=== PATIENT | female | born 2005 | race Caucasian/White ===

== ENCOUNTER 2024-10-18 23:20 | Inpatient (IN) | payer OTHER, SELFPAY ==
--- NOTE | ~2024-10-18 | US_ITS ---
EXAMINATION: US thyroid DATE: 10/19/2024 11:43 INDICATION: Graves' disease TECHNIQUE: Multiple ultrasound images of the thyroid were obtained. COMPARISON: None. FINDINGS: The right thyroid lobe measures 5.8 x 1.6 x 3.0 cm. The left thyroid lobe measures 4.8 x 1.5 x 2.2 cm. 9 mm solid hypoechoic wider than tall nodule with ill-defined margins and without echogenic foci in the right thyroid lobe. (TI- RADS 4, moderately suspicious , FNA if >=1.5 cm, annual followup is >=1 cm). There is heterogeneous decreased echogenicity with coarsened echotexture and increased vascular flow on color Doppler throughout the thyroid consistent with reported history of Graves' disease. IMPRESSION: 1. Heterogeneous hypoechoic thyroid with diffuse increased vascular flow consistent with provided history of Graves' disease. 2. 9 mm TI RADS 4 right thyroid nodule which remains below size criteria for either biopsy or follow-up. Reviewed, dictated and finalized at location A. IMPRESSION: 1. Heterogeneous hypoechoic thyroid with diffuse increased vascular flow consis tent with provided history of Graves' disease. 2. 9 mm TI RADS 4 right thyroid nodule which remains below size criteria for ei ther biopsy or follow-up.
--- NOTE | ~2024-10-18 | CT_ITS ---
EXAMINATION: CTA chest PE abdomen pel DATE: 10/19/2024 01:35 INDICATION: Shortness of breath, tachypnea and tachycardia TECHNIQUE: Computed tomographic angiography (CTA) of the chest and abdomen was performed with 100 mL Omnipaque-350 intravenous contrast. The dose-length product was 691.19 mGy-cm. Maximum intensity projection 3D-reconstructions of the aorta and other arteries were constructed by the technologist on a separate workstation. COMPARISON: CT dated 03/26/2024. FINDINGS: CHEST CTA: Study is technically limited for evaluation of peripheral pulmonary arteries due to contrast bolus timing. No large central pulmonary embolism. No evidence for aortic aneurysm or dissection. There is small no focal airspace consolidation. No endobronchial lesions. No focal airspace consolidation. No suspicious pulmonary nodules or masses. Pneumomediastinum. ABDOMEN CTA: No significant vascular abnormality. No evidence for aneurysm or dissection. Fatty infiltration of the liver. Gallbladder is present. The spleen, pancreas, adrenal glands and kidneys are unremarkable. Gallbladder is present. No abnormal pelvic masses or fluid collections. No acute osseous abnormality. IMPRESSION: 1. Small pneumomediastinum. Reviewed, dictated and finalized at location O. IMPRESSION: 1. Small pneumomediastinum.
--- NOTE | ~2024-10-18 | XR_ITS ---
EXAMINATION: XR chest 2V 10/19/2024 01:17 INDICATION: Shortness of breath PROCEDURE: 2 view chest COMPARISON: 11/06/2013 FINDINGS: The lungs are clear. The cardiomediastinal silhouette is within normal limits. There are no pleural effusions. There is no pneumothorax suspected. IMPRESSION: 1: NO ACUTE CARDIOPULMONARY DISEASE. Reviewed, dictated and finalized at location O.
[2024-10-18 23:30] VITALS: BP 145/98; PULSE 128; RESP 32; TEMP 36.6; O2SAT 100
[2024-10-18 23:32] VITALS: BP 145/98; PULSE 130; RESP 25; O2SAT 98
--- OUTSIDE RECORDS SUMMARY | 2024-10-18 23:39 | XMS_ITS | Clinical Summary ---
Author Organization [facility] Address [address] [place] [address] Care Team Providers Care Natural Resources Manager Name Role Phone Hill Dan MD Primary Care Provider [phone] Source Comments [facility],non-owned Affiliates and Associated Physician Practices is amultiple site organization consisting of ambulatory clinics and hospital sitesin [place], [place], [place] and [place]. This disclosure is being madepursuant to the Care Everywhere program and may not contain all information available regarding this patient. Last updated 17.[facility] Allergies No known active allergies Medications * Be aware that medications may not be up to date on this document. Alwaysverify current medications with the patient. methimazole (TAPAZOLE) 10 MG tabletIndications:Grave s disease 1.5 tabs by mouth am; 1 tab pm 75 Tab 2 05/17/19 16 Active beclomethasone dipropionate (QVAR) 40 MCG/ACT inhalerIndications:Mild persistent asthma without complication (HCC) Inhale 2 Puffs by mouth 2 times daily 1 Inhaler 06/06/19 16 Active cetirizine (ZYRTEC) 10 MG tabletIndications:Aller gic rhinoconjunctivitis Take 1 Tab by mouth at bedtime 30 Tab 6 06/06/19 16 Active albuterol HFA (PROVENTIL;VENTOLIN;PRO AIR) 108 (90 BASE) MCG/ACT inhalerIndications:Mild persistent asthma without complication (HCC) Inhale 2 Puffs by mouth every 6 hours as needed (per an asthma action plan and before exertion.) 1 Inhaler 06/06/19 16 Active fluticasone propionate (FLONASE) 50 MCG/ACT nasal sprayIndications:Allerg ic rhinoconjunctivitis Leonard 2 Sprays into each nostril once daily 1 Bottle 6 06/06/19 16 Active hydrocortisone (HYTONE) 2.5 % ointmentIndications:Ecz ketan, unspecified type Apply to affected area 2 times daily as needed (for red, itchy skin) 30 g 6 06/06/19 16 Active methimazole (TAPAZOLE) 10 MG tablet Take 1.5 Tabs by mouth 2 times daily 90 Tab 3 08/22/19 16 Active Active Problems Problem Noted Date Diagnosed Date Asthma 06/06/2015 Allergic rhinoconjunctivitis 06/06/2015 Overview (06/06/2015): 06/06/15: allergy SPT + to dust mites, mold, dog, cat, rodents, trees, grass, ragweed, and other weeds. 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 Bagley or Sumit at [phone] 3) check thyroid levels today and again in 3 weeks 4) return in [address] Muhammad Assessment & Plan (05/17/2015 3:13 PM CDT): Suboptimally treated; ? Missed medication doses (+/- suboptimal dose). 1. Increase methimazole (10 mg tablet) 1.5 tablets am; 1 tablet pm 2. Repeat serum total T3 & total T4 levels at local laboratory (requisition forms mailed to home address) in 2-3 weeks. 3. Referral to Pediatric Ophthalmology 4. Return appointment in three months. Assessment & Plan (01/21/2015 3:05 PM [facility]): 1) check thyroid function today 2) Per Dr. Bolivar, resume Methimazole 20mg once daily, recheck thyroid function in 4-6 weeks 3) schedule appointment with ophthalmology at [phone], dr. Bagley, dr. medeiros 4) return in [address] Andrews Assessment & Plan (01/29/2014 4:40 PM [facility]): Grave's disease; improved control. 1. Methimazole (Tapazole) 5 mg at 8 am; 2:30 pm and 9 pm. 2. Atenolol 25 mg daily 3. Obtain serum TSH, total T3 and total T4 at [facility] in two weeks and fax results to Dr. Hill Muhammad at [phone] (prescription given). 3. I will contact Lisa Reed's mother by telephone (number: [phone] or father at telephone: [phone]) with the test results after I have received them and make the necessary medication dose adjustments. 4. I reviewed my provisional impressions and recommendations with Lisa Reed and her parents and they were in agreement. 5. See website: [email or web address] for patient information handouts - Grave's disease 6. Follow up with Dr. Lopez (Ophthalmology at [facility]) as previously recommended. 7. Return appointment in 3 months. Assessment & Plan (11/27/2013 12:56 PM CDT): Grave's disease; poorly-treated. 1. Methimazole (Tapazole) 5 mg at 8 am; 2:30 pm and 9 pm. 2. Atenolol 25 mg daily 3. Obtain serum TSH, total T3 and total T4 at [facility] in two weeks and fax results to Dr. Hill Muhammad at [phone] (prescription given). 3. I will contact Lisa Reed's mother by telephone (number: [phone] or father at telephone: [phone]) with the test results after I have received them and make the necessary medication dose adjustments. 4. I reviewed my provisional impressions and recommendations with Lisa Reed and her father and he was in agreement. 5. See website: [email or web address] for patient information handouts - Grave's disease 6. Return appointment in 2 months. Assessment & Plan (06/20/2013 9:03 AM CDT): Poorly controlled secondary to suboptimal medication dose 1. Increase methimazole to 5 mg three times daily daily. 2. Atenelol 25 mg daily. 3. Obtain serum TSH, total T3 & total T4 in two weeks following today's office appointment. 4. I will contact Lisa Reed's father by telephone (number: [phone]) with the test results after I have received them and make the necessary medication dose adjustments. 5. Keep outpatient office appointment with Opthalmology at the [facility] next month. 6. I reviewed my provisional impressions and recommendations with mother and father and they were in agreement. Assessment & Plan (03/21/2013 11:48 AM [facility]): Lisa's serum total T3 and T4 are increased since her last blood specimen collection in November. I recommended returning her medication dosing to twice daily and repeating her serum thyroid hormone levels in four weeks to assess her response to therapy. 1. Atenolol 25 mg every morning. 2. Methimazole 5 mg twice daily. 3. Obtain serum total T3 & T4 in four weeks (prescription mailed). 4. Measure Lisa's pulse daily and fax results to our offices in two weeks (fax: [phone]) 5. Return appointment in three months. Assessment & Plan (12/21/2012 1:13 PM CDT): Lisa's T4 and T3 levels have improved significantly since starting methimazole, but her TSH level remains suppressed. I did not change her methimazole dose and asked her parents to have TFTs repeated in 6 weeks to assess her response to therapy. Management Plan: 1. Continue Atenolol 25 mg every morning. 2. Check resting pulse every other day and notify Dr. Andrews if it slows to <60/minute. 3. Continue methimazole 5 mg twice daily. 4. Repeat T4, T3, and TSH levels in 6 weeks. 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 Family History Medical History Relation Name Comments Allergies Maternal Grandmother Eczema Maternal Grandmother Diabetes Other Father's patern al grandmother Thyroid Disease Neg Hx Relation Name Status Comments Maternal Grandmother Other Social History Tobacco Use Types Packs/Day Years Used Date Smoking Tobacco: Passive Smo ke Exposure - Never Smoker Alcohol Use Standard Drinks/Week Comments No 0 (1 standard drink = 0.6 oz pur e alcohol) Comments No Sex and Gender Information Value Date Recorded Sex Assigned at Not on file Legal Sex Female 6:31 PM [facility] Gender Identity Not on file Sexual Orientation Not on file Last Filed Vital Signs Vital Sign Reading Time Taken Comments Blood Pressure 90/62 08/21/2015 1:40 PM CDT Pulse 93 08/21/2015 1:40 PM CDT Temperature 36.8 C (98.2 F) 11/06/2013 11:19 PM CDT Respiratory Rate 24 08/21/2015 1:40 PM CDT Oxygen Saturation 100% 11/06/2013 11:19 PM CDT Inhaled Oxygen Concentration - - Weight 48.6 kg (107 lb 2.3 oz) 08/21/2015 1:40 P M CDT Height 147.3 cm (4' 9.99) 08/21/2015 1:40 PM CD T Body Mass Index 22.4 08/21/2015 1:40 PM CDT Plan of Treatment Health Maintenance Due Date Last Done Comments HIV SCREENING 09/10/2019 HPV VACCINE (1 - 3-dose series) 09/10/2019 CHLAMYDIA/GONORRHEA SCREENING 2020 MENINGOCOCCAL (Group B) VACCINE SHARED DECISION-MAKING (1 of 2 - Standard) 2020 HEPATITIS C SCREENING 09/05/2022 DTAP/TDAP/TD VACCINES (1 - Tdap) 09/10/2023 HEPATITIS B VACCINE (1 of 3 - 19+ 3-dose series) 09/10/2023 COVID-19 VACCINE (1 - 2023-2 5 season) 2023 DEPRESSION SCREENING 02/23/2024 INFLUENZA VACCINE (#1) 2024 3 (Declined) ZOSTER VACCINE (1 of 2) 2054 HIB VACCINE Aged Out No longer eligi ble based on patient's age to complete this topic MENINGOCOCCAL GROUPS A/C/Y/W VACCINE Aged Out No longer eligible b ased on patient's age to complete this topic PNEUMOCOCCAL VACCINE Aged Out No long er eligible based on patient's age to [place] [address] [facility] [facility] [id number] [place] [address] CARE Care Teams Natural Resources Manager Relationship Specialty Start Date End Date Hill Dan MD [address] [place] [phone] PCP - General Pediatrics 06/19/13
--- OUTSIDE RECORDS SUMMARY | 2024-10-18 23:39 | XMS_ITS ---
Author Organization Unknown ENCOUNTERS Encounter Performer Location Date Diagnosis Diagnosis Status Pre Admit Teri [facility] [id number] [place] [address] [id number] Emergency [id number] [place] [address] [id number] [place] [address] [id number] *Note: Encounters from your own facility or health system may be excluded. Allergies, Adverse Reactions, Alerts Allergen Type Severity Identification Date Medications Name Date Quantity Days Supplied [facility] Number
[2024-10-18 23:42] LABS: Hematocrit 46.9 % (37.0-47.0); Hemoglobin 16.9 g/dL (12.0-15.0); Immature Granulocyte Percent A 0.5 % (0-0.5); Lymphocytes Absolute Auto 1.90 K/mm3 (0.9-3.2); Mean Corpuscular HGB Conc 36.0 g/dl (32-36); Mean Corpuscular Hemoglobin 29.7 pg (26-34); Mean Corpuscular Volume 82.4 fl (80-100); Nucleated Red Blood Cells Absolute Auto 0.000 K/mm3 (0.0-0.012); Nucleated Red Blood Cells Perc 0.0 % (0.0-0.2); Platelet Count Result 396 k/mm3 (150-375); Red Blood Count 5.69 M/mm3 (4.2-5.4); White Blood Count 10.1 K/mm3 (4.5-10.0)
[2024-10-19] VITALS (18 sets, daily range): BP systolic 112–160; BP diastolic 67–100; PULSE 84–125; RESP 16–27; TEMP 36.6–37.3; O2SAT 100; BMI 27.5
[2024-10-19 00:12] LABS: Alanine Aminotransferase 19 U/L (6-35); Albumin Level 4.9 g/dL (3.5-5.1); Alkaline Phosphatase 129 U/L (38-126); Aspartate Amino Transferase 22 U/L (14-36); Bilirubin,Total 0.8 mg/dL (0.2-1.3); Blood Urea Nitrogen 5 mg/dL (7-17); Calcium 9.4 mg/dL (8.4-10.2); Carbon Dioxide < 5 mmol/L (22-30); Chloride 109 mmol/L (98-107); Estimated CRCL calculation 132 ml/min; Estimated Glomerular Filt Rate > 60; Glucose 308 mg/dL (65-110); Lipase 69 U/L (23-300); Potassium 3.9 mmol/L (3.4-5.0); Sodium 138 mmol/L (137-145); Total Protein 8.8 g/dL (6.3-8.2)
[2024-10-19 00:20] LABS: Add Urine Microscopic? YES; Appearance Urine Clear (Clear); Glucose Urine UA 3+ mg/dL (Negative); Leukocyte Esterase Ur Negative LEU/UL (Negative); Need Manual Microscopic Reviewed; Nitrate Urine Negative (Negative); Specific Grav Ur 1.031 (1.001-1.035)
--- NOTE | 2024-10-19 00:48 | ECG_ITS ---
Test Date: 2024-10-19 00:59:23 Measurements Intervals [place] Rate: 119 P: 61 GA: 213 QRS: 78 QRSD: 106 T: -11 QT: 424 QTc: 598 Interpretive Statements SINUS TACHYCARDIA WITH FIRST DEGREE AV BLOCK RIGHT ATRIAL ENLARGEMENT LEFT ATRIAL ENLARGEMENT CONSIDER ANTERIOR INFARCT, AGE INDETERMINATE ST-T WAVE ABNORMALITY IN INFERIOR LEADS- CONSIDER ISCHEMIA BASELINE ARTIFACT- I, II, III, AVR, AVL ,AVF, V1-V6 ABNORMAL ECG No previous ECG available for comparison Electronically Signed On 10-19-2024 06:11:33 CDT by Serg Miranda D.O.
[2024-10-19 00:51] LABS: BEDSIDEPREGUCG Negative (Negative)
[2024-10-19 01:19] LABS: Hematocrit 47.2 % (37.0-47.0); Hemoglobin 16.9 g/dL (12.0-15.0); Immature Granulocyte Percent A 0.5 % (0-0.5); Lymphocytes Absolute Auto 1.08 K/mm3 (0.9-3.2); Mean Corpuscular HGB Conc 35.8 g/dl (32-36); Mean Corpuscular Hemoglobin 29.6 pg (26-34); Mean Corpuscular Volume 82.7 fl (80-100); Nucleated Red Blood Cells Absolute Auto 0.000 K/mm3 (0.0-0.012); Nucleated Red Blood Cells Perc 0.0 % (0.0-0.2); Platelet Count Result 367 k/mm3 (150-375); Red Blood Count 5.71 M/mm3 (4.2-5.4); White Blood Count 9.2 K/mm3 (4.5-10.0)
[2024-10-19 01:28] LABS: INR 1.4; Prothrombin Time 16.5 Seconds (11.1-14.7)
[2024-10-19 01:29] LABS: Partial Thromboplastin Time 22.1 Seconds (22.3-36.8)
[2024-10-19 01:31] LABS: Alanine Aminotransferase 18 U/L (6-35); Albumin Level 5.0 g/dL (3.5-5.1); Alkaline Phosphatase 128 U/L (38-126); Aspartate Amino Transferase 19 U/L (14-36); Bilirubin,Total 0.7 mg/dL (0.2-1.3); Blood Urea Nitrogen 5 mg/dL (7-17); CRP < 0.5 mg/dL (<1.0); Calcium 9.3 mg/dL (8.4-10.2); Carbon Dioxide < 5 mmol/L (22-30); Chloride 110 mmol/L (98-107); Estimated CRCL calculation 127 ml/min; Estimated Glomerular Filt Rate > 60; Glucose 306 mg/dL (65-110); Lipase 64 U/L (23-300); Potassium 4.0 mmol/L (3.4-5.0); Sodium 139 mmol/L (137-145); Total Protein 8.9 g/dL (6.3-8.2)
--- NOTE | 2024-10-19 01:33 | PCRCNOTE ---
pt was with CT and radiology before abg was obtained
[2024-10-19 01:53] LABS: Alveolar/Arterial O2 Gradient 9.1 mmHg; Fractional Inspired Oxygen 21 %; HCO3 ABG 3.7 mEq/l (22.0-26.0); Oxygen Content ABG 22.4 %vol (16.0-22.0); Oxygen Saturation ABG 97.2 % (95.0-100.0); PO2 ABG 125.5 mmHg (80.0-100.0); PO2 FiO2 Ratio Arterial Blood 5.98 %
[2024-10-19 01:56] LABS: Modified Allen's Test Pass; PCO2 ABG 12.6 mmHg (35.0-45.0); Site Drawn LEFT RADIAL
[2024-10-19] MEDS: SODIUM CHLORIDE 0.9% IV 400 ML 999 ML IV CONT (01:58)
[2024-10-19] MEDS: SODIUM CHLORIDE 0.9% IV 1,000 ML 999 ML IV CONT ×3 (01:58→02:34)
[2024-10-19 02:00] LABS: Thyroid Stimulating Hormone Reflex < 0.015 uIU/mL (0.465-4.68)
--- NOTE | 2024-10-19 02:25 | ED_ITS ---
HPI - Abdominal Pain General Chief Complaint: Abdominal Pain <Teri Burleson APRN - Last Filed: 10/19/24 03:53> Stated Complaint: constipation / abd pain / n+v <Teri Burleson APRN - Last Filed: 10/19/24 03:53> Time Seen by Provider: 10/18/24 23:35 <Teri Burleson APRN - Last Filed: 10/19/24 03:53> History of Present Illness HPI narrative: Patient is a 19-year-old female who presents to the ER with complaints of constipation. She reports she has not had a bowel movement for 2 days and is experiencing abdominal pain. Patient also reports she has been vomiting frequent. She reports most of her pain is on the right side of her abdomen. Patient also endorses ?frothy urine and bowel movements. She endorses increased thirst and shortness of breath. Patient denies increased urination, recent fevers, or back pain. She endorses a history of Graves disease but is noncompliant with medication. Patient also endorses a history of asthma. <Teri Burleson APRN - Last Filed: 10/19/24 03:53> Related Data Allergies/Adverse Reactions: Allergies Allergy/AdvReac Type Severity Reaction Status Date / Time No Known Allergies Allergy Verified 10/18/24 23:22 <Teri Burleson APRN - Last Filed: 10/19/24 03:53> Review of Systems 2 Review of Systems: All systems reviewed & are unremarkable except as noted in HPI and below <Teri Burleson APRN - Last Filed: 10/19/24 03:53> Exam 2 Narrative: GENERAL: Ill appearing, well-nourished, non-toxic, in acute distress due to shortness of breath and pain. HEAD: Normocephalic, atraumatic. + bulging eyeballs NECK: Supple. No adenopathy, no masses. +palpable thyroid RESPIRATORY: Airway patent, respirations labored. Clear to auscultation bilaterally, no rales, rhonchi, wheezing. + tachypnea CARDIOVASCULAR: Tachycardia without murmurs, rubs, or gallops. Peripheral pulses 2+ and equal bilaterally. ABDOMINAL: Soft, tender four quadrants, nondistended, no hepatosplenomegaly. Normoactive BS. MUSCULOSKELETAL: Moves all extremities. Strength/ROM intact without gross deformities. SKIN: Warm, dry, normal color. No rashes. NEURO: A&O X3. Speech clear. Cranial nerves II-XII intact. No ataxic movements. PSYCHIATRIC: Appropriate mood and affect. Normal interaction. <Teri Burleson APRN - Last Filed: 10/19/24 03:53> Course SAMPLE FINISHER/PA Physician Supervision This visit was performed by both a physician and an APC. For this patient encounter, I reviewed the SAMPLE FINISHER or PA documentation, treatment plan, and medical decision making and had [id number] time with this patient. I performed all aspects of the MDM as documented. up <Constantin Bullock MD - Last Filed: 10/19/24 04:21> Vital Signs Vital signs: Vital Signs Temperature 97.9 F 10/18/24 23:30 Pulse Rate 128 H 10/18/24 23:30 Respiratory Rate 32 H 10/18/24 23:30 Blood Pressure 145/98 H 10/18/24 23:30 Pulse Oximetry 100 10/18/24 23:30 Oxygen Delivery Room Air 10/18/24 23:30 Temperature 97.9 F 10/18/24 23:30 Pulse Rate 113 H 10/19/24 03:56 Respiratory Rate 25 H 10/19/24 03:56 Blood Pressure 160/80 H 10/19/24 03:56 Pulse Oximetry 100 10/19/24 03:56 Oxygen Delivery Room Air 10/18/24 23:30 <Teri Burleson APRN - Last Filed: 10/19/24 03:53> Vital Signs Temperature 97.9 F 10/18/24 23:30 Pulse Rate 128 H 10/18/24 23:30 Respiratory Rate 32 H 10/18/24 23:30 Blood Pressure 145/98 H 10/18/24 23:30 Pulse Oximetry 100 10/18/24 23:30 Oxygen Delivery Room Air 10/18/24 23:30 Temperature 97.9 F 10/18/24 23:30 Pulse Rate 113 H 10/19/24 03:56 Respiratory Rate 25 H 10/19/24 03:56 Blood Pressure 160/80 H 10/19/24 03:56 Pulse Oximetry 100 10/19/24 03:56 Oxygen Delivery Room Air 10/18/24 23:30 <Constantin Bullock MD - Last Filed: 10/19/24 04:21> MDM - Abdominal Pain MDM Narrative Medical decision making narrative: Patient is a 19-year-old female who presents to the ER with complaints of constipation. She reports she has not had a bowel movement for 2 days and is experiencing abdominal pain. Patient also reports she has been vomiting frequent. She reports most of her pain is on the right side of her abdomen. Patient also endorses ?frothy urine and bowel movements. She endorses increased thirst and shortness of breath. Patient denies increased urination, recent fevers, or back pain. She endorses a history of Graves disease but is noncompliant with medication. Patient also endorses a history of asthma. Labs Ordered: CBC, CMP, ABG, D-dimer, lipase, beta hydroxybutyrate, TSH, blood cultures, INR, PTT, lactic acid, CRP Imaging Ordered: Chest x-ray, CTA chest PE abdomen pelvis Medications Ordered: 4 L normal saline IV bolus, Zofran IV, morphine IV Results: Patient's CT scan indicates no acute abnormalities. Her CBC indicates RBCs of 5.71, hemoglobin of 16.9, hematocrit of 47.2%. Patient's coags indicate a PT of 16.5 and a PTT of 22.1. Her blood gas indicates a pH of 7.080, pCO2 of 12.6, PO2 of 125, HC03 of 3.7. Consults: 0245- Spoke with Dr. Farah, who was in agreement with plan for admission to the ICU. CRITICAL CARE ADDENDUM: Indication: DKA Time type: intermittent I provided a total of 75 minutes of critical care excluding separately billable procedures. This includes time of initial bedside evaluation, reviewing old records, review of testing done while under my care, discussion w/ the family, nurses, sales consultant residential manager and guiding the patient?s care while in the emergency department. Approximate time distribution: 15 minutes ? Initial evaluation, d/w involved parties, attempting to gather old records. 10 minutes ? Documenting medical record 10 minutes ? Review of results (EKGs, labs, imaging) 20 minutes ? Serial repeat bedside evaluation 20 minutes ? Discussing case with multiple providers Please see main chart for details. Excludes separately billable procedures. MDM: Results of imaging and lab work shared with patient. It was advised patient be admitted to the hospital for further evaluation and treatment. Patient verbalized understanding and is in agreement with plan. 0315-Spoke with hospitalist, Dutch Esposito NP, who was in agreement with plan for admission. He is requesting pt receive IV potassium (order he will put in). Pt placed on the DKA protocol. <Teri Burleson, CORPORATE TRAVEL AGENT - Last Filed: 10/19/24 03:53> Patient is a 19-year-old female who presents to the ER with complaints of constipation. She reports she has not had a bowel movement for 2 days and is experiencing abdominal pain. Patient also reports she has been vomiting frequent. She reports most of her pain is on the right side of her abdomen. Patient also endorses ?frothy urine and bowel movements. She endorses increased thirst and shortness of breath. Patient denies increased urination, recent fevers, or back pain. She endorses a history of Graves disease but is noncompliant with medication. Patient also endorses a history of asthma. Labs Ordered: CBC, CMP, ABG, D-dimer, lipase, beta hydroxybutyrate, TSH, blood cultures, INR, PTT, lactic acid, CRP Imaging Ordered: Chest x-ray, CTA chest PE abdomen pelvis Medications Ordered: 4 L normal saline IV bolus, Zofran IV, morphine IV Results: Patient's CT scan indicates no acute abnormalities. Her CBC indicates RBCs of 5.71, hemoglobin of 16.9, hematocrit of 47.2%. Patient's coags indicate a PT of 16.5 and a PTT of 22.1. Her blood gas indicates a pH of 7.080, pCO2 of 12.6, PO2 of 125, HC03 of 3.7. Consults: 0245- Spoke with Dr. Farah, who was in agreement with plan for admission to the ICU. CRITICAL CARE ADDENDUM: Indication: DKA Time type: intermittent I provided a total of 75 minutes of critical care excluding separately billable procedures for condition of DKA. This includes time of initial bedside evaluation, reviewing old records, review of testing done while under my care, discussion w/ the family, nurses, sales consultant residential manager and guiding the patient?s care while in the emergency department. Approximate time distribution: 15 minutes ? Initial evaluation, d/w involved parties, attempting to gather old records. 10 minutes ? Documenting medical record 10 minutes ? Review of results (EKGs, labs, imaging) 20 minutes ? Serial repeat bedside evaluation 20 minutes ? Discussing case with multiple providers Please see main chart for details. Excludes separately billable procedures. MDM: Results of imaging and lab work shared with patient. It was advised patient be admitted to the hospital for further evaluation and treatment. Patient verbalized understanding and is in agreement with plan. 0315-Spoke with hospitalist, Dutch Esposito NP, who was in agreement with plan for admission. He is requesting pt receive IV potassium (order he will put in). Pt placed on the DKA protocol. <Constantin Bullock MD - Last Filed: 10/19/24 04:21> Differential Diagnosis Differential diagnosis: Likely abdominal pain, acute appendicitis, calculus of kidney, constipation, diverticulitis, gastroenteritis and other (DKA) <Teri Burleson APRN - Last Filed: 10/19/24 03:53> Lab Data Attestation: I reviewed the patient's lab results. <Teri Burleson APRN - Last Filed: 10/19/24 03:53> Result diagrams: 10/19/24 01:07 10/19/24 01:07 <Teri Burleson APRN - Last Filed: 10/19/24 03:53> Labs: Lab Results 10/18/24 10/18/24 10/19/24 Range/Units 23:35 23:55 00:12 WBC 10.1 H (4.5-10.0) K/mm3 RBC 5.69 H (4.2-5.4) M/mm3 Hgb 16.9 H (12.0-15.0) g/dL Hct 46.9 (37.0-47.0) % MCV 82.4 (80-100) fl MCH 29.7 (26-34) pg MCHC 36.0 (32-36) g/dl RDW 13.9 (11.5-14.5) % Plt Count 396 H D (150-375) k/mm3 MPV 10.3 (7.4-10.4) fl Immature Gran % (Auto) 0.5 (0-0.5) % Neut % (Auto) 73.7 H (45.5-73.1) % Lymph % (Auto) 18.8 (18.3-44.2) % [place] % (Auto) 5.8 (2.6-8.5) % Eos % (Auto) 0.6 (0-4.4) % Baso % (Auto) 0.6 (0.2-1.2) % Lymph # (Auto) 1.90 (0.9-3.2) K/mm3 [place] # (Auto) 0.6 (0.1-0.6) K/mm3 Eos # (Auto) 0.1 (0-0.3) K/mm3 Baso # (Auto) 0.1 (0.0-0.1) K/mm3 Abs Immat Gran (auto) 0.05 H (0.00-0.031) K/mm3 Absolute Neuts (auto) 7.5 H (1.3-6.7) K/mm3 Absolute Nucleated RBC 0.000 (0.0-0.012) K/mm3 Nucleated RBC % 0.0 (0.0-0.2) % PT (11.1-14.7) Seconds INR APTT (22.3-36.8) Seconds D-Dimer (<0.48) ug/mL Sodium 138 (137-145) mmol/L Potassium 3.9 (3.4-5.0) mmol/L Chloride 109 H (98-107) mmol/L Carbon Dioxide < 5 L (22-30) mmol/L Anion Gap (4-12) mmol/L BUN 5 L D (7-17) mg/dL Creatinine 0.56 L (0.7-1.0) mg/dL Estim Creat Clear Calc 132 ml/min Estimated GFR > 60 (59 - ) Glucose 308 H (65-110) mg/dL POC Capillary Glucose (65-105) mg/dl Hemoglobin A1c (<5.7) % Lactic Acid (0.7-2.0) mmol/L Calcium 9.4 (8.4-10.2) mg/dL Phosphorus (2.5-4.5) mg/dL Magnesium (1.6-2.3) mg/dL Total Bilirubin 0.8 (0.2-1.3) mg/dL AST 22 (14-36) U/L ALT 19 (6-35) U/L Alkaline Phosphatase 129 H (38-126) U/L C-Reactive Protein (<1.0) mg/dL Total Protein 8.8 H (6.3-8.2) g/dL Albumin 4.9 (3.5-5.1) g/dL Lipase 69 (23-300) U/L Beta-Hydroxybutyrate/Acetoacetate (0.02-0.27) mmol/L TSH (Reflex) (0.465-4.68) uIU/mL Free T4 Urine Color Yellow (Yellow) Urine Appearance Clear (Clear) Urine pH 5.0 (5.0-9.0) Ur Specific [place] 1.031 (1.001-1.035) Urine Protein 2+ H (Negative) mg/dL Urine Glucose (UA) 3+ H (Negative) mg/dL Urine Ketones 4+ H (Negative) mg/dL Ur Blood (Man) 1+ H (Negative) Urine Nitrate Negative (Negative) Urine Bilirubin Negative (Negative) Urine Urobilinogen 0.2 (<2.0) mg/dL Add Ur Microanalysis Reviewed Leukocyte Esterase Rfl Negative (Negative) XANDER/UL Urine RBC 0-2 (0-2) /hpf Urine WBC 0-5 (0-3) /hpf Ur Squamous Epith Cells Occasional (Few) /hpf Urine Bacteria None seen /hpf Urine Casts 11-20 POC Urine HCG, Qual Negative (Negative) 10/19/24 10/19/24 10/19/24 Range/Units 01:06 01:07 02:47 WBC 9.2 (4.5-10.0) K/mm3 RBC 5.71 H (4.2-5.4) M/mm3 Hgb 16.9 H (12.0-15.0) g/dL Hct 47.2 H (37.0-47.0) % MCV 82.7 (80-100) fl MCH 29.6 (26-34) pg MCHC 35.8 (32-36) g/dl RDW 14.0 (11.5-14.5) % Plt Count 367 (150-375) k/mm3 MPV 10.4 (7.4-10.4) fl Immature Gran % (Auto) 0.5 (0-0.5) % Neut % (Auto) 82.0 H (45.5-73.1) % Lymph % (Auto) 11.7 L (18.3-44.2) % Wilkinson % (Auto) 5.0 (2.6-8.5) % Eos % (Auto) 0.3 (0-4.4) % Baso % (Auto) 0.5 (0.2-1.2) % Lymph # (Auto) 1.08 (0.9-3.2) K/mm3 [place] # (Auto) 0.5 (0.1-0.6) K/mm3 Eos # (Auto) 0.0 (0-0.3) K/mm3 Baso # (Auto) 0.1 (0.0-0.1) K/mm3 Abs Immat Gran (auto) 0.05 H (0.00-0.031) K/mm3 Absolute Neuts (auto) 7.6 H (1.3-6.7) K/mm3 Absolute Nucleated RBC 0.000 (0.0-0.012) K/mm3 Nucleated RBC % 0.0 (0.0-0.2) % PT 16.5 H (11.1-14.7) Seconds INR 1.4 APTT 22.1 L (22.3-36.8) Seconds D-Dimer 0.38 (<0.48) ug/mL Sodium 139 (137-145) mmol/L Potassium 4.0 (3.4-5.0) mmol/L Chloride 110 H (98-107) mmol/L Carbon Dioxide < 5 L (22-30) mmol/L Anion Gap (4-12) mmol/L BUN 5 L (7-17) mg/dL Creatinine 0.58 L (0.7-1.0) mg/dL Estim Creat Clear Calc 127 ml/min Estimated GFR > 60 (59 - ) Glucose 306 H (65-110) mg/dL POC Capillary Glucose 238 H (65-105) mg/dl Hemoglobin A1c 11.3 H (<5.7) % Lactic Acid 0.9 (0.7-2.0) mmol/L Calcium 9.3 (8.4-10.2) mg/dL Phosphorus 3.1 (2.5-4.5) mg/dL Magnesium 2.0 (1.6-2.3) mg/dL Total Bilirubin 0.7 (0.2-1.3) mg/dL AST 19 (14-36) U/L ALT 18 (6-35) U/L Alkaline Phosphatase 128 H (38-126) U/L C-Reactive Protein < 0.5 (<1.0) mg/dL Total Protein 8.9 H (6.3-8.2) g/dL Albumin 5.0 (3.5-5.1) g/dL Lipase 64 (23-300) U/L Beta-Hydroxybutyrate/Acetoacetate 9.55 H (0.02-0.27) mmol/L TSH (Reflex) < 0.015 L (0.465-4.68) uIU/mL Free T4 Pending Urine Color (Yellow) Urine Appearance (Clear) Urine pH (5.0-9.0) Ur Specific [place] (1.001-1.035) Urine Protein (Negative) mg/dL Urine Glucose (UA) (Negative) mg/dL Urine Ketones (Negative) mg/dL Ur Blood (Man) (Negative) Urine Nitrate (Negative) Urine Bilirubin (Negative) Urine Urobilinogen (<2.0) mg/dL Add Ur Microanalysis Leukocyte Esterase Rfl (Negative) XANDER/UL Urine RBC (0-2) /hpf Urine WBC (0-3) /hpf Ur Squamous Epith Cells (Few) /hpf Urine Bacteria /hpf Urine Casts POC Urine HCG, Qual (Negative) <Teri Burleson, CORPORATE TRAVEL AGENT - Last Filed: 10/19/24 03:53> Lab Results 10/18/24 10/18/24 10/19/24 Range/Units 23:35 23:55 00:12 WBC 10.1 H (4.5-10.0) K/mm3 RBC 5.69 H (4.2-5.4) M/mm3 Hgb 16.9 H (12.0-15.0) g/dL Hct 46.9 (37.0-47.0) % MCV 82.4 (80-100) fl MCH 29.7 (26-34) pg MCHC 36.0 (32-36) g/dl RDW 13.9 (11.5-14.5) % Plt Count 396 H D (150-375) k/mm3 MPV 10.3 (7.4-10.4) fl Immature Gran % (Auto) 0.5 (0-0.5) % Neut % (Auto) 73.7 H (45.5-73.1) % Lymph % (Auto) 18.8 (18.3-44.2) % Wilkinson % (Auto) 5.8 (2.6-8.5) % Eos % (Auto) 0.6 (0-4.4) % Baso % (Auto) 0.6 (0.2-1.2) % Lymph # (Auto) 1.90 (0.9-3.2) K/mm3 [place] # (Auto) 0.6 (0.1-0.6) K/mm3 Eos # (Auto) 0.1 (0-0.3) K/mm3 Baso # (Auto) 0.1 (0.0-0.1) K/mm3 Abs Immat Gran (auto) 0.05 H (0.00-0.031) K/mm3 Absolute Neuts (auto) 7.5 H (1.3-6.7) K/mm3 Absolute Nucleated RBC 0.000 (0.0-0.012) K/mm3 Nucleated RBC % 0.0 (0.0-0.2) % PT (11.1-14.7) Seconds INR APTT (22.3-36.8) Seconds D-Dimer (<0.48) ug/mL Sodium 138 (137-145) mmol/L Potassium 3.9 (3.4-5.0) mmol/L Chloride 109 H (98-107) mmol/L Carbon Dioxide < 5 L (22-30) mmol/L Anion Gap (4-12) mmol/L BUN 5 L D (7-17) mg/dL Creatinine 0.56 L (0.7-1.0) mg/dL Estim Creat Clear Calc 132 ml/min Estimated GFR > 60 (59 - ) Glucose 308 H (65-110) mg/dL POC Capillary Glucose (65-105) mg/dl Hemoglobin A1c (<5.7) % Lactic Acid (0.7-2.0) mmol/L Calcium 9.4 (8.4-10.2) mg/dL Phosphorus (2.5-4.5) mg/dL Magnesium (1.6-2.3) mg/dL Total Bilirubin 0.8 (0.2-1.3) mg/dL AST 22 (14-36) U/L ALT 19 (6-35) U/L Alkaline Phosphatase 129 H (38-126) U/L C-Reactive Protein (<1.0) mg/dL Total Protein 8.8 H (6.3-8.2) g/dL Albumin 4.9 (3.5-5.1) g/dL Lipase 69 (23-300) U/L Beta-Hydroxybutyrate/Acetoacetate (0.02-0.27) mmol/L TSH (Reflex) (0.465-4.68) uIU/mL Free T4 Urine Color Yellow (Yellow) Urine Appearance Clear (Clear) Urine pH 5.0 (5.0-9.0) Ur Specific [place] 1.031 (1.001-1.035) Urine Protein 2+ H (Negative) mg/dL Urine Glucose (UA) 3+ H (Negative) mg/dL Urine Ketones 4+ H (Negative) mg/dL Ur Blood (Man) 1+ H (Negative) Urine Nitrate Negative (Negative) Urine Bilirubin Negative (Negative) Urine Urobilinogen 0.2 (<2.0) mg/dL Add Ur Microanalysis Reviewed Leukocyte Esterase Rfl Negative (Negative) XANDER/UL Urine RBC 0-2 (0-2) /hpf Urine WBC 0-5 (0-3) /hpf Ur Squamous Epith Cells Occasional (Few) /hpf Urine Bacteria None seen /hpf Urine Casts 11-20 POC Urine HCG, Qual Negative (Negative) 10/19/24 10/19/24 10/19/24 Range/Units 01:06 01:07 02:47 WBC 9.2 (4.5-10.0) K/mm3 RBC 5.71 H (4.2-5.4) M/mm3 Hgb 16.9 H (12.0-15.0) g/dL Hct 47.2 H (37.0-47.0) % MCV 82.7 (80-100) fl MCH 29.6 (26-34) pg MCHC 35.8 (32-36) g/dl RDW 14.0 (11.5-14.5) % Plt Count 367 (150-375) k/mm3 MPV 10.4 (7.4-10.4) fl Immature Gran % (Auto) 0.5 (0-0.5) % Neut % (Auto) 82.0 H (45.5-73.1) % Lymph % (Auto) 11.7 L (18.3-44.2) % [place] % (Auto) 5.0 (2.6-8.5) % Eos % (Auto) 0.3 (0-4.4) % Baso % (Auto) 0.5 (0.2-1.2) % Lymph # (Auto) 1.08 (0.9-3.2) K/mm3 [place] # (Auto) 0.5 (0.1-0.6) K/mm3 Eos # (Auto) 0.0 (0-0.3) K/mm3 Baso # (Auto) 0.1 (0.0-0.1) K/mm3 Abs Immat Gran (auto) 0.05 H (0.00-0.031) K/mm3 Absolute Neuts (auto) 7.6 H (1.3-6.7) K/mm3 Absolute Nucleated RBC 0.000 (0.0-0.012) K/mm3 Nucleated RBC % 0.0 (0.0-0.2) % PT 16.5 H (11.1-14.7) Seconds INR 1.4 APTT 22.1 L (22.3-36.8) Seconds D-Dimer 0.38 (<0.48) ug/mL Sodium 139 (137-145) mmol/L Potassium 4.0 (3.4-5.0) mmol/L Chloride 110 H (98-107) mmol/L Carbon Dioxide < 5 L (22-30) mmol/L Anion Gap (4-12) mmol/L BUN 5 L (7-17) mg/dL Creatinine 0.58 L (0.7-1.0) mg/dL Estim Creat Clear Calc 127 ml/min Estimated GFR > 60 (59 - ) Glucose 306 H (65-110) mg/dL POC Capillary Glucose 238 H (65-105) mg/dl Hemoglobin A1c 11.3 H (<5.7) % Lactic Acid 0.9 (0.7-2.0) mmol/L Calcium 9.3 (8.4-10.2) mg/dL Phosphorus 3.1 (2.5-4.5) mg/dL Magnesium 2.0 (1.6-2.3) mg/dL Total Bilirubin 0.7 (0.2-1.3) mg/dL AST 19 (14-36) U/L ALT 18 (6-35) U/L Alkaline Phosphatase 128 H (38-126) U/L C-Reactive Protein < 0.5 (<1.0) mg/dL Total Protein 8.9 H (6.3-8.2) g/dL Albumin 5.0 (3.5-5.1) g/dL Lipase 64 (23-300) U/L Beta-Hydroxybutyrate/Acetoacetate 9.55 H (0.02-0.27) mmol/L TSH (Reflex) < 0.015 L (0.465-4.68) uIU/mL Free T4 Pending Urine Color (Yellow) Urine Appearance (Clear) Urine pH (5.0-9.0) Ur Specific [place] (1.001-1.035) Urine Protein (Negative) mg/dL Urine Glucose (UA) (Negative) mg/dL Urine Ketones (Negative) mg/dL Ur Blood (Man) (Negative) Urine Nitrate (Negative) Urine Bilirubin (Negative) Urine Urobilinogen (<2.0) mg/dL Add Ur Microanalysis Leukocyte Esterase Rfl (Negative) XANDER/UL Urine RBC (0-2) /hpf Urine WBC (0-3) /hpf Ur Squamous Epith Cells (Few) /hpf Urine Bacteria /hpf Urine Casts POC Urine HCG, Qual (Negative) <Constantin Bullock MD - Last Filed: 10/19/24 04:21> ABG Data ABG results: 10/19/24 01:38 Puncture Site Left radial ABG pH 7.080 L* ABG pCO2 12.6 L* ABG pO2 125.5 H ABG PO2/FiO2 Ratio 5.98 ABG HCO3 3.7 L ABG O2 Saturation 97.2 ABG O2 Content 22.4 H ABG Base Excess -24.0 A-a Gradient 9.1 Oxyhemoglobin 97.3 Total Hemoglobin 16.3 O2 Delivery Device Room air O2 Liters/Min Not Reportable FiO2 21 <Teri Burleson APRN - Last Filed: 10/19/24 03:53> 10/19/24 01:38 Puncture Site Left radial ABG pH 7.080 L* ABG pCO2 12.6 L* ABG pO2 125.5 H ABG PO2/FiO2 Ratio 5.98 ABG HCO3 3.7 L ABG O2 Saturation 97.2 ABG O2 Content 22.4 H ABG Base Excess -24.0 A-a Gradient 9.1 Oxyhemoglobin 97.3 Total Hemoglobin 16.3 O2 Delivery Device Room air O2 Liters/Min Not Reportable FiO2 21 <Constantin Bullock MD - Last Filed: 10/19/24 04:21> Imaging Data Attestation: I personally reviewed and interpreted this imaging study as follows: < Teri Burleson APRN - Last Filed: 10/19/24 03:53> Radiologist's impression: Patient's CT scan indicates no acute abnormalities. <Teri Burleson APRN - Last Filed: 10/19/24 03:53> Critical Care Time Critical Care Time Critical Care Time: Yes <Constantin Bullock MD - Last Filed: 10/19/24 04:21> Total Critical Care Time: 75 <Teri Burleson APRN - Last Filed: 10/19/24 03:53> 77 ( Please refer to [facility] for attestation.) <Constantin Bullock MD - Last Filed: 10/19/24 04:21> Discharge Plan Discharge Clinical Impression: DKA (diabetic ketoacidosis), Hypocapnemia <Teri Burleson APRN - Last Filed: 10/19/24 03:53> Patient Disposition: Still a Patient <Teri Burleson APRN - Last Filed: 10/19/24 03:53> Condition: Serious <Teri Burleson APRN - Last Filed: 10/19/24 03:53>
[2024-10-19] MEDS: MORPHINE SULFATE (*CRX) 4 MG/ML INJ IV PUSH (02:33)
[2024-10-19] MEDS: ONDANSETRON INJ 4 MG/2 ML VIAL IV PUSH (02:33)
[2024-10-19 03:01] LABS: Hemoglobin A1C 11.3 % (<5.7)
[2024-10-19 03:10] LABS: Magnesium 2.0 mg/dL (1.6-2.3)
--- NOTE | 2024-10-19 03:16 | PC.NURSE ---
Ok per Teri, to start insulin drip at 7.5 units/hr per the weight based protocol.
[2024-10-19 03:36] LABS: Beta-Hydroxybutyrate/Acetoace. 9.55 mmol/L (0.02-0.27)
[2024-10-19] MEDS: KCL 20 MEQ/SW 100 ML 100 ML 50 MEQ IVPB (03:48)
[2024-10-19] MEDS: DEXTROSE 5%/0.45% SOD CHL 1,000 ML 150 ML IV CONT (03:49)
[2024-10-19] MEDS: INSULIN HUMAN REGULAR (*BKC) 100 UNITS in SODIUM CHLORIDE 0.9% IV 99 ML 7.5 UNITS IV CONT (03:49)
[2024-10-19] MEDS: INSULIN HUMAN REGULAR (*BKC) 100 UNITS in SODIUM CHLORIDE 0.9% IV 99 ML IV CONT (04:38)
[2024-10-19 04:47] LABS: Cannabinoid Screen Urine Negative (Negative)
[2024-10-19 05:11] LABS: Hematocrit 42.0 % (37.0-47.0); Hemoglobin 14.5 g/dL (12.0-15.0); Immature Granulocyte Percent A 1.2 % (0-0.5); Lymphocytes Absolute Auto 0.93 K/mm3 (0.9-3.2); Mean Corpuscular HGB Conc 34.5 g/dl (32-36); Mean Corpuscular Hemoglobin 29.8 pg (26-34); Mean Corpuscular Volume 86.4 fl (80-100); Nucleated Red Blood Cells Absolute Auto 0.000 K/mm3 (0.0-0.012); Nucleated Red Blood Cells Perc 0.0 % (0.0-0.2); Platelet Count Result 302 k/mm3 (150-375); Red Blood Count 4.86 M/mm3 (4.2-5.4); White Blood Count 13.0 K/mm3 (4.5-10.0)
[2024-10-19] MEDS: KCL 20 MEQ/D5/0.45% SOD CHL 1,000 ML 150 ML IV CONT ×3 (05:15→18:01)
[2024-10-19 05:27] LABS: Alanine Aminotransferase 15 U/L (6-35); Albumin Level 4.1 g/dL (3.5-5.1); Alkaline Phosphatase 107 U/L (38-126); Aspartate Amino Transferase 22 U/L (14-36); Bilirubin,Total 0.5 mg/dL (0.2-1.3); Blood Urea Nitrogen 3 mg/dL (7-17); Calcium 7.7 mg/dL (8.4-10.2); Carbon Dioxide < 5 mmol/L (22-30); Chloride 120 mmol/L (98-107); Estimated CRCL calculation 163 ml/min; Estimated Glomerular Filt Rate > 60; Glucose 211 mg/dL (65-110); Magnesium 1.9 mg/dL (1.6-2.3); Potassium 3.7 mmol/L (3.4-5.0); Sodium 144 mmol/L (137-145); Total Protein 7.3 g/dL (6.3-8.2)
[2024-10-19 05:41] LABS: Free T4 Free Thyroxine 2.19 ng/dL (0.78-2.19)
[2024-10-19 06:40] LABS: Free T4 Free Thyroxine Reflex 2.49 ng/dL (0.78-2.19)
--- NOTE | 2024-10-19 07:46 | P.HP_ITS ---
H&P: HPI History of Present Illness Date/Time: 10/19/24 07:46 Chief Complaint: Polydipsia/polyuria/polyphagia for 1 week followed by nausea/vomiting and abdominal pain for 2 day Narrative: Lisa Ray is a 19 year old female without pmhx who presents for polydipsia, polyphagia and polyuria for x1 week followed by diffuse sharp constant abdominal pain associated with nausea and vomiting for the past 2 days. Denies diarrhea/fever but chills. Denies URI proceeding to this symptoms or recent outside [place] travel or taking new medications. No family history of diabetes or thyroid disease. In the ED, patient received approximately 4.5 L of normal saline. ABG shows pH 7.08, pCO2 to a 0.6 bicarb 3.7. Sodium 139, potassium 4.0, chloride 118, bicarb less than 5 L. Blood sugar 306. Hemoglobin A1c 11.3. Ketone detected in the urine. Hydroxy butyrate 9.55. TSH <0.015 and free T4 2.49. Urine protein 2+ and urine glucose 3+ urine ketones 4+. Chest/abdomen/pelvis CT shows small pneumomediastinum. Chest x-ray was unrevealing. [facility] Social History Social History Smoking status: Never smoker Alcohol intake: never Substance use: never Lack of Transportation: No Lack of Food: Never True Current Housing: I Have Housing Concerned About Future Housing: No Difficulty Paying Gas/Electric Bills: No Difficulty Paying for Meds: No Currently Unemployed: No Education: High School Diploma/GED Difficulty w/ Childcare or Family Care: No Spiritual care concerns: No Meds Home Medications and Allergies Allergies Allergy/AdvReac Type Severity Reaction Status Date / Time No Known Allergies Allergy Verified 10/18/24 23:22 Vital Signs Vital Signs - 24 hr 10/18/24 23:30 10/18/24 23:32 10/19/24 01:15 Temperature 36.6 C Pulse Rate 128 H 130 H 120 H Respiratory Rate 32 H 25 H 25 H Blood Pressure 145/98 H 145/98 H 130/84 Pulse Oximetry 100 98 100 Oxygen Delivery Room Air 10/19/24 02:23 10/19/24 03:56 10/19/24 04:47 Temperature Pulse Rate 117 H 113 H 113 H Respiratory Rate 19 25 H Blood Pressure 160/80 H 160/80 H Pulse Oximetry 100 100 Oxygen Delivery 10/19/24 04:56 10/19/24 06:00 10/19/24 06:00 Temperature 37.3 C Pulse Rate 125 H 114 H 114 H Respiratory Rate 25 H 21 H Blood Pressure 144/100 H Pulse Oximetry 100 100 Oxygen Delivery Room Air Exam Narrative: APPEARANCE: mild distress EYES: EOMI HEENT: Normocephalic, atraumatic, OMM RESPIRATORY: No respiratory distress Clear to auscultation bilaterally with no rhonchi wheezing or rales. CARDIOVASCULAR: RRR, S1 and S2 without murmurs rubs or gallops. ABDOMINAL: Diffuse abdominal tenderness to deep palpation, negative for peritonitis/guarding. MSK: 5/5 motor strength throughout all extremities NEURO: Awake and alert. Following commands, speech normal, no focal deficits SKIN:: Warm, dry. No rashes lesions or abrasions PSYCHIATRIC: Normal affect/mood, H&P: Results Labs Labs: Short CBC 10/18/24 10/19/24 10/19/24 Range/Units 23:35 01:07 05:06 WBC 10.1 H 9.2 13.0 H (4.5-10.0) K/mm3 Hgb 16.9 H 16.9 H 14.5 (12.0-15.0) g/dL Hct 46.9 47.2 H 42.0 (37.0-47.0) % Plt Count 396 H D 367 302 (150-375) k/mm3 BMP 10/18/24 10/19/24 10/19/24 23:35 01:07 05:06 Sodium 138 139 144 Potassium 3.9 4.0 3.7 Chloride 109 H 110 H 120 H Carbon Dioxide < 5 L < 5 L < 5 L BUN 5 L D 5 L 3 L Creatinine 0.56 L 0.58 L 0.44 L Glucose 308 H 306 H 211 H Calcium 9.4 9.3 7.7 L Liver Function 10/18/24 10/19/24 10/19/24 Range/Units 23:35 01:07 05:06 Total Bilirubin 0.8 0.7 0.5 (0.2-1.3) mg/dL AST 22 19 22 (14-36) U/L ALT 19 18 15 (6-35) U/L Alkaline Phosphatase 129 H 128 H 107 (38-126) U/L Albumin 4.9 5.0 4.1 (3.5-5.1) g/dL Urine 10/18/24 Range/Units 23:55 Urine Color Yellow (Yellow) Urine Appearance Clear (Clear) Urine pH 5.0 (5.0-9.0) Ur Specific [place] 1.031 (1.001-1.035) Urine Protein 2+ H (Negative) mg/dL Urine Glucose (UA) 3+ H (Negative) mg/dL Assessment and Plan Assessment and plan (1) DKA (diabetic ketoacidosis): Code(s): E11.10 - Type 2 diabetes mellitus with ketoacidosis without coma Status: Acute (2) Hypocapnemia: Code(s): R79.81 - Abnormal blood-gas level Status: Acute (3) Newly diagnosed diabetes: Code(s): E11.9 - Type 2 diabetes mellitus without complications Status: Acute (4) Hyperthyroidism: Code(s): E05.90 - Thyrotoxicosis, unspecified without thyrotoxic crisis or storm Status: Acute (5) Pneumomediastinum: Code(s): J98.2 - Interstitial emphysema Status: Acute Plan 1.DKA Continue IV fluid, and IV insulin Blood sugar < 200, add dextrose Potassium 3.3-5.3, start replacement Potassium< 3.3, will start aggressive potassium replacement PH less than 6.9, will give bicarb Check BMP Q 4 to Q 6 hours Follow-up GAD65 and c-peptide 2. Hyperthyroidism TSH 0.015 and FT4 2.4 will start propranolol if she continues to tachycardia 3. Pneumomediastinum Revealed on CT a chest/abdomen/pelvis, small, no chest pain Continue on non-rebreather, assess chest pain frequently Quality VTE Prophylaxis VTE prophylaxis: mechanical ordered and pharmacologic ordered (Lovenox)
[2024-10-19] MEDS: HYDROCORTISONE SODIUM SUCCINATE 100 MG/2 ML VIAL IV PUSH ×3 (08:26→21:17)
[2024-10-19] MEDS: LACTATED RINGERS 1,000 ML 999 ML IV CONT (08:26)
--- NOTE | 2024-10-19 08:56 | P.CONIN_ITS ---
Assessment and Plan Assessment and plan (1) DKA (diabetic ketoacidosis): Code(s): E11.10 - Type 2 diabetes mellitus with ketoacidosis without coma Status: Acute Assessment and Plan: 10/19: Patient presented with nausea, vomiting, abdominal pain, increased thirst. In the ED she was found to be in diabetic ketoacidosis with decreased CO2, anion gap was not calculable, elevated blood sugars, UA showed ketones and glucose. Patient was given 4 L normal saline bolus in the ER, started on insulin infusion per DKA protocol -continue insulin infusion -will give additional IV fluid boluses patient is still tachycardic and looks dry -anti CODY 65 antibody and C-peptide is pending -hemoglobin A1c is 11.3 this admission -will have patient educator and dietitian evaluate the patient -will transition once anion gap closes and CO2 has improved -patient may have ice chips at this time (2) Hyperthyroidism: Code(s): E05.90 - Thyrotoxicosis, unspecified without thyrotoxic crisis or storm Status: Acute Assessment and Plan: Patient has a history of Graves disease, is noncompliant with her medications -patient has exophthalmos -TSH significantly low, T4 elevated -will start methimazole, atenolol and hydrocortisone -will obtain thyroid ultrasound -patient will require endocrinology follow-up on discharge (3) Pneumomediastinum: Code(s): J98.2 - Interstitial emphysema Status: Acute Assessment and Plan: Patient has a new small pneumomediastinum on CT scan of the chest, could be related to nausea/vomiting -will continue to monitor Plan DVT prophylaxis: Lovenox subQ Stress ulcer prophylaxis: Not indicated Nutrition: NPO for now Code Status: Full code Critical Care Time Spent: 45 minutes Discussed with patient and her mother at bedside and updated them with patient's condition and plan of care. They are aware that she has new onset diabetes and that she is still very acidotic and will remain on the insulin infusion. They are aware that I will be restarting her medications for Graves disease. Answered all questions Due to a high probability of clinically significant, life threatening deterioration, the patient required my highest level of preparedness to intervene emergently and I personally spent this critical care time directly and personally managing the patient. This critical care time included obtaining a history; examining the patient; pulse oximetry; ordering and review of studies; arranging urgent treatment with development of a management plan; evaluation of patient's response to treatment; frequent reassessment; and discussions with other providers. It was exclusive of separately billable procedures and treating other patients and teaching time. Please see Assessment and Plan section and the rest of the note for further information on patient assessment and treatment This dictation may have been done utilizing a voice recognition system. Attempts have been made to correct errors. However, there may be uncorrected grammatical, spelling, and recognitions errors present. [employer] Consult Note Consult date: 10/19/24 Reason for consult: Nausea, vomiting, abdominal pain, diabetic ketoacidotic HPI: Lisa Ray is a 19 year old female with past medical history of Graves disease presented the ED in the early hours of 10/19/2024, with complaints of nausea, vomiting, abdominal pain, increased thirst. In the ER patient was found to have blood sugars in a 300s, CO2< 5, could not calculate anion gap, creatinine 0.56, beta hydroxybutyrate 9.55, TSH <0.015, free T4 2.49. Patient received a total of 4000 mL normal saline fluid bolus in the ED, started on insulin infusion per DKA protocol and admitted to the ICU for further management Urine test was negative, urine drug screen was negative CTA chest abdomen and pelvis: Showed no pulmonary embolism, small pneumomediastinum, no abdominal pathology CXR: No acute cardiopulmonary disease Patient seen examined the ICU this morning, is awake, alert, oriented. States she feels much better since the time she came to the hospital. Complains of mild headache, denies any nausea, vomiting, abdominal pain. She did have 400 mL in urine output this morning. Afebrile, hemodynamically stable, tachycardic. Patient denies any tobacco, illicit drug use or alcohol use. She works full- time Review of Systems 2 Review of Systems: All systems reviewed & are unremarkable except as noted in HPI and below PMFSH Social History Social History Smoking status: Never smoker Alcohol intake: never Substance use: never Lack of Transportation: No Lack of Food: Never True Current Housing: I Have Housing Concerned About Future Housing: No Difficulty Paying Gas/Electric Bills: No Difficulty Paying for Meds: No Currently Unemployed: No Education: High School Diploma/GED Difficulty w/ Childcare or Family Care: No Spiritual care concerns: No Meds Home Medications and Allergies Allergies Allergy/AdvReac Type Severity Reaction Status Date / Time No Known Allergies Allergy Verified 10/18/24 23:22 Vital Signs Vital Signs - 24 hr 10/18/24 23:30 10/18/24 23:32 10/19/24 01:15 Temperature 97.9 F Pulse Rate 128 H 130 H 120 H Respiratory Rate 32 H 25 H 25 H Blood Pressure 145/98 H 145/98 H 130/84 Pulse Oximetry 100 98 100 Oxygen Delivery Room Air 10/19/24 02:23 10/19/24 03:56 10/19/24 04:47 Temperature Pulse Rate 117 H 113 H 113 H Respiratory Rate 19 25 H Blood Pressure 160/80 H 160/80 H Pulse Oximetry 100 100 Oxygen Delivery 10/19/24 04:56 10/19/24 06:00 10/19/24 06:00 Temperature 99.2 F Pulse Rate 125 H 114 H 114 H Respiratory Rate 25 H 21 H Blood Pressure 144/100 H Pulse Oximetry 100 100 Oxygen Delivery Room Air 10/19/24 08:00 10/19/24 08:00 10/19/24 08:00 Temperature Pulse Rate 114 H 114 H 114 H Respiratory Rate 27 H 27 H Blood Pressure 132/88 Pulse Oximetry 100 100 Oxygen Delivery Room Air Exam 2 Narrative: General: Pleasant female in no acute distress HEENT:? Exophthalmos, pupils equal and reactive, sclerae is clear, dry oral mucosa Neck:? Supple Respiratory:? Clear to auscultation bilaterally, no wheeze Cardiac:? S1-S2 is normal, sinus tachycardia Abdomen:? Soft, nontender, nondistended, normoactive bowel sounds Extremities:? No edema, palpable pedal pulses Neuro:? Patient is awake, alert, oriented, answers to questions appropriately and follows simple commands in all extra Skin:? No skin lesions noted Psych:? Normal mentation and affect Results Labs 10/19/24 05:06 10/19/24 05:06 Labs: Short CBC 10/18/24 10/19/24 10/19/24 Range/Units 23:35 01:07 05:06 WBC 10.1 H 9.2 13.0 H (4.5-10.0) K/mm3 Hgb 16.9 H 16.9 H 14.5 (12.0-15.0) g/dL Hct 46.9 47.2 H 42.0 (37.0-47.0) % Plt Count 396 H D 367 302 (150-375) k/mm3 BMP 10/18/24 10/19/24 10/19/24 23:35 01:07 05:06 Sodium 138 139 144 Potassium 3.9 4.0 3.7 Chloride 109 H 110 H 120 H Carbon Dioxide < 5 L < 5 L < 5 L BUN 5 L D 5 L 3 L Creatinine 0.56 L 0.58 L 0.44 L Glucose 308 H 306 H 211 H Calcium 9.4 9.3 7.7 L Liver Function 10/18/24 10/19/24 10/19/24 Range/Units 23:35 01:07 05:06 Total Bilirubin 0.8 0.7 0.5 (0.2-1.3) mg/dL AST 22 19 22 (14-36) U/L ALT 19 18 15 (6-35) U/L Alkaline Phosphatase 129 H 128 H 107 (38-126) U/L Albumin 4.9 5.0 4.1 (3.5-5.1) g/dL Urine 10/18/24 Range/Units 23:55 Urine Color Yellow (Yellow) Urine Appearance Clear (Clear) Urine pH 5.0 (5.0-9.0) Ur Specific [place] 1.031 (1.001-1.035) Urine Protein 2+ H (Negative) mg/dL Urine Glucose (UA) 3+ H (Negative) mg/dL Quality VTE Prophylaxis VTE prophylaxis: pharmacologic ordered Hospitalist MIPS Advance Care Plan I have confirmed that the patient's Advanced Care Plan is present, code status is documented, or surrogate decision maker is listed in patient medical record.: Yes Medication Reconciliation I have utilized all available resources to obtain, update and review the patients current medications (includes all prescriptions, OTC, herbals, cannabis, and nutritional supplements).: Yes
[2024-10-19 09:16] LABS: Blood Urea Nitrogen 3 mg/dL (7-17); Calcium 8.3 mg/dL (8.4-10.2); Carbon Dioxide < 5 mmol/L (22-30); Chloride 117 mmol/L (98-107); Estimated CRCL calculation 154 ml/min; Estimated Glomerular Filt Rate > 60; Glucose 254 mg/dL (65-110); Potassium 4.2 mmol/L (3.4-5.0); Sodium 142 mmol/L (137-145)
[2024-10-19] MEDS: atenoloL 12.5 MG TABLET PO (09:17)
[2024-10-19 13:43] LABS: Calcium 8.6 mg/dL (8.4-10.2); Carbon Dioxide < 5 mmol/L (22-30); Chloride 116 mmol/L (98-107); Estimated CRCL calculation 177 ml/min; Estimated Glomerular Filt Rate > 60; Glucose 232 mg/dL (65-110); Potassium 3.2 mmol/L (3.4-5.0); Sodium 137 mmol/L (137-145)
[2024-10-19 14:30] LABS: Blood Urea Nitrogen < 2 mg/dL (7-17)
[2024-10-19] MEDS: POTASSIUM CHLORIDE INJ 40 MEQ in SODIUM CHLORIDE 0.9% IV 500 ML 130 MEQ IVPB ×2 (14:42→23:18)
[2024-10-19 17:45] LABS: Anion Gap 18 mmol/L (4-12); Calcium 8.8 mg/dL (8.4-10.2); Carbon Dioxide 7 mmol/L (22-30); Chloride 116 mmol/L (98-107); Estimated CRCL calculation 185 ml/min; Estimated Glomerular Filt Rate > 60; Glucose 225 mg/dL (65-110); Potassium 3.5 mmol/L (3.4-5.0); Sodium 141 mmol/L (137-145)
[2024-10-19 18:00] LABS: Blood Urea Nitrogen < 2 mg/dL (7-17)
[2024-10-19 21:34] LABS: Anion Gap 14 mmol/L (4-12); Calcium 9.0 mg/dL (8.4-10.2); Carbon Dioxide 9 mmol/L (22-30); Chloride 114 mmol/L (98-107); Estimated CRCL calculation 185 ml/min; Estimated Glomerular Filt Rate > 60; Glucose 248 mg/dL (65-110); Potassium 3.1 mmol/L (3.4-5.0); Sodium 137 mmol/L (137-145)
[2024-10-19 21:40] LABS: Blood Urea Nitrogen < 2 mg/dL (7-17)
[2024-10-19] MEDS: POTASSIUM CHLORIDE 20 MEQ PACKET (FOR LIQUID) 40 MEQ PO (23:18)
[2024-10-20] VITALS (11 sets, daily range): BP systolic 108–130; BP diastolic 62–84; PULSE 76–106; RESP 12–23; TEMP 36.2–36.7; O2SAT 99–100; BMI 27.3
[2024-10-20] MEDS: KCL 20 MEQ/D5/0.45% SOD CHL 1,000 ML 150 ML IV CONT ×2 (00:37→07:22)
[2024-10-20 01:19] LABS: Anion Gap 11 mmol/L (4-12); Calcium 8.8 mg/dL (8.4-10.2); Carbon Dioxide 10 mmol/L (22-30); Chloride 116 mmol/L (98-107); Estimated CRCL calculation 214 ml/min; Estimated Glomerular Filt Rate > 60; Glucose 222 mg/dL (65-110); Potassium 3.8 mmol/L (3.4-5.0); Sodium 137 mmol/L (137-145)
[2024-10-20 01:20] LABS: Blood Urea Nitrogen < 2 mg/dL (7-17)
[2024-10-20 06:02] LABS: Hematocrit 34.4 % (37.0-47.0); Hemoglobin 12.2 g/dL (12.0-15.0); Immature Granulocyte Percent A 0.3 % (0-0.5); Lymphocytes Absolute Auto 1.55 K/mm3 (0.9-3.2); Mean Corpuscular HGB Conc 35.5 g/dl (32-36); Mean Corpuscular Hemoglobin 29.5 pg (26-34); Mean Corpuscular Volume 83.3 fl (80-100); Nucleated Red Blood Cells Absolute Auto 0.000 K/mm3 (0.0-0.012); Nucleated Red Blood Cells Perc 0.0 % (0.0-0.2); Platelet Count Result 237 k/mm3 (150-375); Red Blood Count 4.13 M/mm3 (4.2-5.4); White Blood Count 5.9 K/mm3 (4.5-10.0)
[2024-10-20 06:26] LABS: Alanine Aminotransferase 11 U/L (6-35); Albumin Level 3.1 g/dL (3.5-5.1); Alkaline Phosphatase 71 U/L (38-126); Anion Gap 9 mmol/L (4-12); Aspartate Amino Transferase 15 U/L (14-36); Bilirubin,Total 0.6 mg/dL (0.2-1.3); Blood Urea Nitrogen 2 mg/dL (7-17); Calcium 8.7 mg/dL (8.4-10.2); Carbon Dioxide 15 mmol/L (22-30); Chloride 115 mmol/L (98-107); Estimated CRCL calculation 214 ml/min; Estimated Glomerular Filt Rate > 60; Glucose 229 mg/dL (65-110); Magnesium 1.9 mg/dL (1.6-2.3); Potassium 3.2 mmol/L (3.4-5.0); Sodium 139 mmol/L (137-145); Total Protein 5.7 g/dL (6.3-8.2)
[2024-10-20] MEDS: HYDROCORTISONE SODIUM SUCCINATE 100 MG/2 ML VIAL IV PUSH ×3 (07:28→22:31)
[2024-10-20] MEDS: INSULIN HUMAN REGULAR (*BKC) 100 UNITS in SODIUM CHLORIDE 0.9% IV 99 ML IV CONT (07:38)
[2024-10-20 09:35] LABS: Anion Gap 10 mmol/L (4-12); Blood Urea Nitrogen 2 mg/dL (7-17); Calcium 9.0 mg/dL (8.4-10.2); Carbon Dioxide 15 mmol/L (22-30); Chloride 113 mmol/L (98-107); Estimated CRCL calculation 232 ml/min; Estimated Glomerular Filt Rate > 60; Glucose 192 mg/dL (65-110); Potassium 3.1 mmol/L (3.4-5.0); Sodium 138 mmol/L (137-145)
[2024-10-20 10:33] LABS: Hemoglobin A1C 10.8 % (<5.7)
[2024-10-20] MEDS: POTASSIUM/PHOSPHORUS/SODIUM 1.5 GM PACKET 1 PACKET PO (10:37)
[2024-10-20] MEDS: ENOXAPARIN 40 MG/0.4 ML SYRINGE SUB-Q (10:37)
[2024-10-20] MEDS: atenoloL 12.5 MG TABLET PO (10:37)
[2024-10-20] MEDS: POTASSIUM PHOS,M-BASIC-D-BASIC 20 MMOL in SODIUM CHLORIDE 0.9% IV 250 ML 64.17 MMOL IVPB (10:38)
[2024-10-20] MEDS: INSULIN GLARGINE (*BKC) 100 UNITS/ML 20 UNITS SUB-Q (10:43)
--- NOTE | 2024-10-20 11:16 | P.PNINT_ITS ---
Progress Note: A&P Assessment and Plan (1) DKA (diabetic ketoacidosis): Code(s): E11.10 - Type 2 diabetes mellitus with ketoacidosis without coma Status: Acute Assessment and Plan: 10/19: Patient presented with nausea, vomiting, abdominal pain, increased thirst. In the ED she was found to be in diabetic ketoacidosis with decreased CO2, anion gap was not calculable, elevated blood sugars, UA showed ketones and glucose. Patient was given 4 L normal saline bolus in the ER, started on insulin infusion per DKA protocol -continue insulin infusion -will give additional IV fluid boluses patient is still tachycardic and looks dry -anti CODY 65 antibody and C-peptide is pending -hemoglobin A1c is 11.3 this admission -appreciate dietitian evaluation and recommendations -director of photography has been consulted -anion gap has closed, CO2 is improved, will transition to long-acting insulin Lantus and sliding scale insulin. Will start diabetic diet (2) Hyperthyroidism: Code(s): E05.90 - Thyrotoxicosis, unspecified without thyrotoxic crisis or storm Status: Acute Assessment and Plan: Patient has a history of Graves disease, is noncompliant with her medications -patient has exophthalmos -TSH significantly low, T4 elevated -continue methimazole, atenolol and hydrocortisone -10/19: Thyroid ultrasound: Heterogeneous hypoechoic thyroid with diffuse increased vascular flow consistent with provided history of Graves' disease. 9 mm TI RADS 4 right thyroid nodule which remains below size criteria for either biopsy or follow-up. -patient was provided name, address and phone number of an amphibious operations officer that she may follow as outpatient (3) Pneumomediastinum: Code(s): J98.2 - Interstitial emphysema Status: Acute Assessment and Plan: Patient has a new small pneumomediastinum on CT scan of the chest, could be related to nausea/vomiting -will continue to monitor Plan DVT prophylaxis: Lovenox subQ Stress ulcer prophylaxis: Not indicated Nutrition: Will start diabetic diet Code Status: Full code Critical Care Time Spent: 31 minutes May transfer out of the ICU Discussed with patient and her mother and sister at bedside and updated them with patient's condition and plan of care. They are aware that patient will be off insulin infusion and be started on long-acting insulin Lantus and sliding scale insulin. She will also be started on diabetic diet. They are aware that patient is on thyroid medications. I answered all questions Due to a high probability of clinically significant, life threatening deterioration, the patient required my highest level of preparedness to intervene emergently and I personally spent this critical care time directly and personally managing the patient. This critical care time included obtaining a history; examining the patient; pulse oximetry; ordering and review of studies; arranging urgent treatment with development of a management plan; evaluation of patient's response to treatment; frequent reassessment; and discussions with other providers. It was exclusive of separately billable procedures and treating other patients and teaching time. Please see Assessment and Plan section and the rest of the note for further information on patient assessment and treatment This dictation may have been done utilizing a voice recognition system. Attempts have been made to correct errors. However, there may be uncorrected grammatical, spelling, and recognitions errors present. Subjective Date/time seen: 10/20/24 11:16 Interval history: Reason for consult: Nausea, vomiting, abdominal pain, diabetic ketoacidosis 10/20/2024: Patient seen and examined the ICU, remains on insulin infusion. States she feels much better this morning, anion gap has closed, CO2 is improved. Potassium has been low, was replaced early this morning. Patient denies any nausea, vomiting, diarrhea, chest pain, shortness of breath, abdominal pain has been adequate. Urine output has been adequate, hemodynamically stable and afebrile Review of Systems Review of Systems: All systems reviewed & are unremarkable except as noted in HPI and below Exam Narrative: General: Pleasant female in no acute distress HEENT:? Exophthalmos, pupils equal and reactive, sclerae is clear, dry oral mucosa Neck:? Supple Respiratory:? Clear to auscultation bilaterally, no wheeze Cardiac:? S1-S2 is normal, regular rate and rhythm Abdomen:? Soft, nontender, nondistended, normoactive bowel sounds Extremities:? No edema, palpable pedal pulses Neuro:? Patient is awake, alert, oriented, answers to questions appropriately and follows simple commands in all extremities Skin:? No skin lesions noted Psych:? Normal mentation and affect Objective Data Vital Signs Vital Signs: Vital Signs - 24 hr 10/19/24 11:37 10/19/24 12:00 10/19/24 12:00 Temperature 98.1 F Pulse Rate 84 84 Respiratory Rate 22 H 22 H Blood Pressure 115/90 Pulse Oximetry 100 100 Oxygen Delivery Room Air 10/19/24 12:00 10/19/24 14:00 10/19/24 14:00 Temperature 98.8 F Pulse Rate 84 84 88 Respiratory Rate 16 Blood Pressure 114/67 Pulse Oximetry 100 Oxygen Delivery 10/19/24 16:00 10/19/24 16:00 10/19/24 16:00 Temperature 98.6 F Pulse Rate 84 84 84 Respiratory Rate 17 17 Blood Pressure 112/70 Pulse Oximetry 100 100 Oxygen Delivery Room Air 10/19/24 17:56 10/19/24 18:00 10/19/24 18:00 Temperature 98.4 F Pulse Rate 89 90 Respiratory Rate 17 Blood Pressure 118/72 Pulse Oximetry 100 Oxygen Delivery 10/19/24 20:00 10/19/24 20:00 10/19/24 20:00 Temperature 97.9 F Pulse Rate 86 90 95 Respiratory Rate 17 20 Blood Pressure 113/69 Pulse Oximetry 100 100 Oxygen Delivery Room Air 10/19/24 22:00 10/19/24 22:00 10/20/24 00:00 Temperature 97.1 F L Pulse Rate 91 95 87 Respiratory Rate 20 16 Blood Pressure 123/72 108/67 Pulse Oximetry 100 99 Oxygen Delivery 10/20/24 00:00 10/20/24 00:00 10/20/24 02:00 Temperature Pulse Rate 87 87 83 Respiratory Rate 16 Blood Pressure Pulse Oximetry 100 Oxygen Delivery Room Air 10/20/24 02:00 10/20/24 04:00 10/20/24 04:00 Temperature 97.7 F Pulse Rate 83 78 78 Respiratory Rate 18 16 Blood Pressure 116/62 114/62 Pulse Oximetry 99 100 Oxygen Delivery 10/20/24 04:00 10/20/24 06:00 10/20/24 06:00 Temperature Pulse Rate 80 80 Respiratory Rate 15 14 Blood Pressure 108/65 Pulse Oximetry 100 100 Oxygen Delivery Room Air 10/20/24 07:35 10/20/24 08:00 10/20/24 08:00 Temperature 98.0 F Pulse Rate 86 86 Respiratory Rate 12 12 Blood Pressure 117/72 Pulse Oximetry 100 100 Oxygen Delivery Room Air 10/20/24 10:00 10/20/24 10:37 Temperature 97.8 F Pulse Rate 106 H 90 Respiratory Rate 23 H Blood Pressure 119/84 Pulse Oximetry 100 Oxygen Delivery Intake/Output Intake/Output: Intake & Output 10/17/24 10/18/24 10/19/24 10/20/24 23:59 23:59 23:59 23:59 Intake Total 6074.5 2546.9 Output Total 3300 800 Balance 2774.5 1746.9 Meds/Results Medications: Active Medications Generic Name Dose Route Start Last Admin Trade Name Freq PRN Reason Stop Dose Admin Acetaminophen 650 mg 10/19/24 09:17 Acetaminophen 325 Mg Tablet PO Q6H PRN Mild Pain (1-3) or Fever Atenolol 12.5 mg 10/19/24 09:00 10/20/24 10:37 Atenolol 12.5 Mg Tablet PO 12.5 mg DAILY JULIO C Administration Dextrose 12.5 gm 10/20/24 10:13 Dextrose 50% 25 Gm/50 Ml Syringe IV PUSH PRN PRN Hypoglycemia Protocol Enoxaparin Sodium 40 mg 10/20/24 09:00 10/20/24 10:37 Enoxaparin 40 Mg/0.4 Ml Syringe SUB-Q 40 mg DAILY JULIO C Administration Glucagon 1 mg 10/20/24 10:13 Glucagon For Inj 1 Mg Vial IM PRN PRN Hypoglycemia Protocol Glucose 15 gm 10/20/24 10:13 Glucose Oral Gel 15 Gm Of Glucse In 37.5 Gm Tube PO PRN PRN Hypoglycemia Protocol Hydrocortisone Sodium Succinate 100 mg 10/19/24 08:20 10/20/24 07:28 Hydrocortisone Sodium Succinate 100 Mg/2 Ml Vial IV PUSH 100 mg Q8HR JULIO C Administration Sodium Chloride 1,000 mls @ 150 mls/hr 10/19/24 02:35 10/20/24 00:56 Normal Saline Iv IV CONT Not Given .Q6H40M JULIO C Potassium Chloride/Dextrose/Sod Cl 1,000 mls @ 150 mls/hr 10/19/24 02:35 10/20/24 07:22 Kcl 20 Meq/D5/0.45% Sod Chl IV CONT 150 mls/hr .Q6H40M JULIO C Administration Dextrose/Sodium Chloride 1,000 mls @ 150 mls/hr 10/19/24 02:35 10/20/24 00:56 Dextrose 5% Sodium Chloride 0.45% IV CONT Not Given .Q6H40M JULIO C Insulin Human Regular 100 100 mls @ 0 mls/hr 10/19/24 03:10 10/20/24 09:55 units/ Sodium Chloride IV CONT 0 units/hr .Q0M JULIO C 0 mls/hr Protocol Titration Potassium Phosphate 20 mmol/ 256.6667 mls @ 64.167 mls/hr 10/20/24 07:33 10/20/24 10:38 Sodium Chloride IVPB 10/20/24 11:32 64.17 mls/hr ONCE ONE Administration Dextrose 1,000 mls @ 100 mls/hr 10/20/24 10:13 Dextrose 5% 1,000 Ml IVPB PRN PRN Hypoglycemia Protocol Insulin Aspart 4 - 8 units 10/20/24 12:00 Insulin Aspart (*Bkc) 100 Units/Ml SUB-Q TIDWM JULIO C Protocol Insulin Glargine 20 units 10/21/24 09:00 Insulin Glargine (*Bkc) 100 Units/Ml SUB-Q DAILY JULIO C Methimazole 10 mg 10/19/24 09:00 10/20/24 10:37 Methimazole 10 Mg Tab PO 10 mg DAILY JULIO C Administration Ondansetron HCl 4 mg 10/19/24 03:22 Ondansetron Inj 4 Mg/2 Ml Vial IV PUSH On Hold: 10/19/24 04:14 Q4H PRN Nausea Radiology Results: ITS Impressions Chest/Abdomen/Pelvis CTA 10/19/24 05:26 IMPRESSION: 1. Small pneumomediastinum. ADDENDUM: 10/19/[address] Addison Blandon discussed with Dr. Ara MD at 10/19/2024 5:33 CDT. Chest X-Ray 10/19/24 05:37 IMPRESSION: 1: NO ACUTE CARDIOPULMONARY DISEASE. Thyroid Ultrasound 10/19/24 12:35 IMPRESSION: 1. Heterogeneous hypoechoic thyroid with diffuse increased vascular flow consistent with provided history of Graves' disease. 2. 9 mm TI RADS 4 right thyroid nodule which remains below size criteria for either biopsy or follow-up. Labs Labs: Laboratory Results - last 24 hr 10/19/24 10/19/24 10/19/24 08:52 11:58 12:55 WBC RBC Hgb Hct MCV MCH MCHC RDW Plt Count MPV Immature Gran % (Auto) Neut % (Auto) Lymph % (Auto) Crawford % (Auto) Eos % (Auto) Baso % (Auto) Lymph # (Auto) Crawford # (Auto) Eos # (Auto) Baso # (Auto) Abs Immat Gran (auto) Absolute Neuts (auto) Absolute Nucleated RBC Nucleated RBC % Sodium 137 Potassium 3.2 L Chloride 116 H Carbon Dioxide < 5 L Anion Gap BUN < 2 L Creatinine 0.40 L Estim Creat Clear Calc 177 Estimated GFR > 60 Glucose 232 H POC Capillary Glucose 234 H Hemoglobin A1c C-Peptide 0.5 L Calcium 8.6 Phosphorus Magnesium Total Bilirubin AST ALT Alkaline Phosphatase Total Protein Albumin 10/19/24 10/19/24 10/19/24 13:00 13:59 14:57 WBC RBC Hgb Hct MCV MCH MCHC RDW Plt Count MPV Immature Gran % (Auto) Neut % (Auto) Lymph % (Auto) Crawford % (Auto) Eos % (Auto) Baso % (Auto) Lymph # (Auto) Crawford # (Auto) Eos # (Auto) Baso # (Auto) Abs Immat Gran (auto) Absolute Neuts (auto) Absolute Nucleated RBC Nucleated RBC % Sodium Potassium Chloride Carbon Dioxide Anion Gap BUN Creatinine Estim Creat Clear Calc Estimated GFR Glucose POC Capillary Glucose 239 H 239 H 223 H Hemoglobin A1c C-Peptide Calcium Phosphorus Magnesium Total Bilirubin AST ALT Alkaline Phosphatase Total Protein Albumin 10/19/24 10/19/24 10/19/24 15:59 16:57 17:11 WBC RBC Hgb Hct MCV MCH MCHC RDW Plt Count MPV Immature Gran % (Auto) Neut % (Auto) Lymph % (Auto) Crawford % (Auto) Eos % (Auto) Baso % (Auto) Lymph # (Auto) Crawford # (Auto) Eos # (Auto) Baso # (Auto) Abs Immat Gran (auto) Absolute Neuts (auto) Absolute Nucleated RBC Nucleated RBC % Sodium 141 Potassium 3.5 Chloride 116 H Carbon Dioxide 7 L Anion Gap 18 H BUN < 2 L Creatinine 0.38 L Estim Creat Clear Calc 185 Estimated GFR > 60 Glucose 225 H POC Capillary Glucose 243 H 214 H Hemoglobin A1c C-Peptide Calcium 8.8 Phosphorus Magnesium Total Bilirubin AST ALT Alkaline Phosphatase Total Protein Albumin 10/19/24 10/19/24 10/19/24 17:54 18:54 20:05 WBC RBC Hgb Hct MCV MCH MCHC RDW Plt Count MPV Immature Gran % (Auto) Neut % (Auto) Lymph % (Auto) Crawford % (Auto) Eos % (Auto) Baso % (Auto) Lymph # (Auto) Crawford # (Auto) Eos # (Auto) Baso # (Auto) Abs Immat Gran (auto) Absolute Neuts (auto) Absolute Nucleated RBC Nucleated RBC % Sodium Potassium Chloride Carbon Dioxide Anion Gap BUN Creatinine Estim Creat Clear Calc Estimated GFR Glucose POC Capillary Glucose 218 H 245 H 214 H Hemoglobin A1c C-Peptide Calcium Phosphorus Magnesium Total Bilirubin AST ALT Alkaline Phosphatase Total Protein Albumin 10/19/24 10/19/24 10/19/24 21:08 21:09 22:06 WBC RBC Hgb Hct MCV MCH MCHC RDW Plt Count MPV Immature Gran % (Auto) Neut % (Auto) Lymph % (Auto) Crawford % (Auto) Eos % (Auto) Baso % (Auto) Lymph # (Auto) Crawford # (Auto) Eos # (Auto) Baso # (Auto) Abs Immat Gran (auto) Absolute Neuts (auto) Absolute Nucleated RBC Nucleated RBC % Sodium 137 Potassium 3.1 L Chloride 114 H Carbon Dioxide 9 L Anion Gap 14 H BUN < 2 L Creatinine 0.38 L Estim Creat Clear Calc 185 Estimated GFR > 60 Glucose 248 H POC Capillary Glucose 244 H 253 H Hemoglobin A1c C-Peptide Calcium 9.0 Phosphorus Magnesium Total Bilirubin AST ALT Alkaline Phosphatase Total Protein Albumin 10/19/24 10/20/24 10/20/24 23:17 00:23 00:53 WBC RBC Hgb Hct MCV MCH MCHC RDW Plt Count MPV Immature Gran % (Auto) Neut % (Auto) Lymph % (Auto) Crawford % (Auto) Eos % (Auto) Baso % (Auto) Lymph # (Auto) Crawford # (Auto) Eos # (Auto) Baso # (Auto) Abs Immat Gran (auto) Absolute Neuts (auto) Absolute Nucleated RBC Nucleated RBC % Sodium 137 Potassium 3.8 Chloride 116 H Carbon Dioxide 10 L Anion Gap 11 BUN < 2 L Creatinine 0.32 L Estim Creat Clear Calc 214 Estimated GFR > 60 Glucose 222 H POC Capillary Glucose 232 H 218 H Hemoglobin A1c C-Peptide Calcium 8.8 Phosphorus Magnesium Total Bilirubin AST ALT Alkaline Phosphatase Total Protein Albumin 10/20/24 10/20/24 10/20/24 02:28 03:36 04:38 WBC RBC Hgb Hct MCV MCH MCHC RDW Plt Count MPV Immature Gran % (Auto) Neut % (Auto) Lymph % (Auto) Crawford % (Auto) Eos % (Auto) Baso % (Auto) Lymph # (Auto) Crawford # (Auto) Eos # (Auto) Baso # (Auto) Abs Immat Gran (auto) Absolute Neuts (auto) Absolute Nucleated RBC Nucleated RBC % Sodium Potassium Chloride Carbon Dioxide Anion Gap BUN Creatinine Estim Creat Clear Calc Estimated GFR Glucose POC Capillary Glucose 220 H 214 H 223 H Hemoglobin A1c C-Peptide Calcium Phosphorus Magnesium Total Bilirubin AST ALT Alkaline Phosphatase Total Protein Albumin 10/20/24 10/20/24 10/20/24 05:35 05:39 06:30 WBC 5.9 RBC 4.13 L Hgb 12.2 Hct 34.4 L MCV 83.3 MCH 29.5 MCHC 35.5 RDW 14.6 H Plt Count 237 MPV 10.3 Immature Gran % (Auto) 0.3 Neut % (Auto) 61.0 Lymph % (Auto) 26.2 Crawford % (Auto) 11.7 H Eos % (Auto) 0.5 Baso % (Auto) 0.3 Lymph # (Auto) 1.55 Crawford # (Auto) 0.7 H Eos # (Auto) 0.0 Baso # (Auto) 0.0 Abs Immat Gran (auto) 0.02 Absolute Neuts (auto) 3.6 Absolute Nucleated RBC 0.000 Nucleated RBC % 0.0 Sodium 139 Potassium 3.2 L Chloride 115 H Carbon Dioxide 15 L Anion Gap 9 BUN 2 L Creatinine 0.32 L Estim Creat Clear Calc 214 Estimated GFR > 60 Glucose 229 H POC Capillary Glucose 201 H Hemoglobin A1c 10.8 H C-Peptide Calcium 8.7 Phosphorus 1.0 L Magnesium 1.9 Total Bilirubin 0.6 AST 15 ALT 11 Alkaline Phosphatase 71 Total Protein 5.7 L Albumin 3.1 L 10/20/24 10/20/24 10/20/24 07:21 08:28 09:16 WBC RBC Hgb Hct MCV MCH MCHC RDW Plt Count MPV Immature Gran % (Auto) Neut % (Auto) Lymph % (Auto) Crawford % (Auto) Eos % (Auto) Baso % (Auto) Lymph # (Auto) Crawford # (Auto) Eos # (Auto) Baso # (Auto) Abs Immat Gran (auto) Absolute Neuts (auto) Absolute Nucleated RBC Nucleated RBC % Sodium 138 Potassium 3.1 L Chloride 113 H Carbon Dioxide 15 L Anion Gap 10 BUN 2 L Creatinine 0.29 L Estim Creat Clear Calc 232 Estimated GFR > 60 Glucose 192 H POC Capillary Glucose 210 H 184 H Hemoglobin A1c C-Peptide Calcium 9.0 Phosphorus Magnesium Total Bilirubin AST ALT Alkaline Phosphatase Total Protein Albumin 10/20/24 10/20/24 09:29 10:36 WBC RBC Hgb Hct MCV MCH MCHC RDW Plt Count MPV Immature Gran % (Auto) Neut % (Auto) Lymph % (Auto) Crawford % (Auto) Eos % (Auto) Baso % (Auto) Lymph # (Auto) Crawford # (Auto) Eos # (Auto) Baso # (Auto) Abs Immat Gran (auto) Absolute Neuts (auto) Absolute Nucleated RBC Nucleated RBC % Sodium Potassium Chloride Carbon Dioxide Anion Gap BUN Creatinine Estim Creat Clear Calc Estimated GFR Glucose POC Capillary Glucose 199 H 226 H Hemoglobin A1c C-Peptide Calcium Phosphorus Magnesium Total Bilirubin AST ALT Alkaline Phosphatase Total Protein Albumin Quality VTE Prophylaxis VTE prophylaxis: pharmacologic ordered
--- NOTE | 2024-10-20 11:43 | PCDIET ---
Education complete with patient, mom and sister. Diet order has advanced to CC diet. Agree with diet orders.
[2024-10-20] MEDS: INSULIN ASPART (*BKC) 100 UNITS/ML SUB-Q (11:46)
[2024-10-20 16:47] LABS: Anion Gap 10 mmol/L (4-12); Blood Urea Nitrogen 4 mg/dL (7-17); Calcium 8.8 mg/dL (8.4-10.2); Carbon Dioxide 16 mmol/L (22-30); Chloride 111 mmol/L (98-107); Estimated CRCL calculation 203 ml/min; Estimated Glomerular Filt Rate > 60; Glucose 192 mg/dL (65-110); Potassium 3.0 mmol/L (3.4-5.0); Sodium 137 mmol/L (137-145)
--- NOTE | 2024-10-20 16:53 | PC.NURSE ---
This RN called Dr. Larsen regarding pt's repeat potassium level. Orders entered
--- NOTE | 2024-10-20 16:57 | PC.NURSE ---
This patient, Lisa Ray, was transferred to [[id number] ] on 10/20/24 at 0478. Personal belongings sent with patient. Report given to [PAULIE Dean @ 1953 ]. Appropriate documentation sent with patient. Family at bedside
--- NOTE | 2024-10-20 17:10 | PC.NURSE ---
This patient, Lisa Ray, was received from ICU 2 on 10/20/24 at 1710. Patient/family oriented to unit policies and routines.
--- NOTE | 2024-10-20 17:36 | PM.IMPN ---
Progress Note: A&P Assessment and Plan (1) DKA (diabetic ketoacidosis): Code(s): E11.10 - Type 2 diabetes mellitus with ketoacidosis without coma Status: Acute Assessment and Plan: 10/19: Patient presented with nausea, vomiting, abdominal pain, increased thirst. In the ED she was found to be in diabetic ketoacidosis with decreased CO2, anion gap was not calculable, elevated blood sugars, UA showed ketones and glucose. Patient was given 4 L normal saline bolus in the ER, started on insulin infusion per DKA protocol -anion gap closed, IV insulin switched to subcu, patient was transferred out of ICU -anti CODY 65 antibody and C-peptide is pending -appreciate dietitian evaluation and recommendations -asthma educator has been consulted -started Lantus to any units daily -K 3.0, 80 mEq potassium chloride given -check BMP after completion (2) Hyperthyroidism: Code(s): E05.90 - Thyrotoxicosis, unspecified without thyrotoxic crisis or storm Status: Acute Assessment and Plan: Patient has a history of Graves disease, is noncompliant with her medications -patient has exophthalmos -TSH significantly low, T4 elevated -continue methimazole, atenolol and hydrocortisone -10/19: Thyroid ultrasound: Heterogeneous hypoechoic thyroid with diffuse increased vascular flow consistent with provided history of Graves' disease. 9 mm TI RADS 4 right thyroid nodule which remains below size criteria for either biopsy or follow-up. -patient was provided name, address and phone number of an geriatric assistant that she may follow as outpatient (3) Pneumomediastinum: Code(s): J98.2 - Interstitial emphysema Status: Acute Assessment and Plan: Patient has a new small pneumomediastinum on CT scan of the chest, could be related to nausea/vomiting -will continue to monitor Time Spent With Patient Time: 25 minutes Subjective Date/time seen: 10/20/24 17:36 Interval history: She endorses improvement was nausea and vomiting. She denies chest pain or palpitation. Abdominal pain improved. Exam Narrative: APPEARANCE: No acute distress, comfortable and conversant EYES: EOMI HEENT: Normocephalic, atraumatic, OMM RESPIRATORY: No respiratory distress Clear to auscultation bilaterally with no rhonchi wheezing or rales. CARDIOVASCULAR: RRR, S1 and S2 without murmurs rubs or gallops. ABDOMINAL: Soft, nondistended, nontender. MSK: 5/5 motor strength throughout all extremities NEURO: Awake and alert. Following commands, speech normal, no focal deficits SKIN:: Warm, dry. No rashes lesions or abrasions PSYCHIATRIC: Normal affect/mood Objective Data Vital Signs Vital Signs: Vital Signs - 24 hr 10/19/24 17:56 10/19/24 18:00 10/19/24 18:00 Temperature 36.9 C Pulse Rate 89 90 Respiratory Rate 17 Blood Pressure 118/72 Pulse Oximetry 100 Oxygen Delivery 10/19/24 20:00 10/19/24 20:00 10/19/24 20:00 Temperature 36.6 C Pulse Rate 86 90 95 Respiratory Rate 17 20 Blood Pressure 113/69 Pulse Oximetry 100 100 Oxygen Delivery Room Air 10/19/24 22:00 10/19/24 22:00 10/20/24 00:00 Temperature 36.2 C L Pulse Rate 91 95 87 Respiratory Rate 20 16 Blood Pressure 123/72 108/67 Pulse Oximetry 100 99 Oxygen Delivery 10/20/24 00:00 10/20/24 00:00 10/20/24 02:00 Temperature Pulse Rate 87 87 83 Respiratory Rate 16 Blood Pressure Pulse Oximetry 100 Oxygen Delivery Room Air 10/20/24 02:00 10/20/24 04:00 10/20/24 04:00 Temperature 36.5 C Pulse Rate 83 78 78 Respiratory Rate 18 16 Blood Pressure 116/62 114/62 Pulse Oximetry 99 100 Oxygen Delivery 10/20/24 04:00 10/20/24 06:00 10/20/24 06:00 Temperature Pulse Rate 80 80 Respiratory Rate 15 14 Blood Pressure 108/65 Pulse Oximetry 100 100 Oxygen Delivery Room Air 10/20/24 07:35 10/20/24 08:00 10/20/24 08:00 Temperature 36.7 C Pulse Rate 86 86 Respiratory Rate 12 12 Blood Pressure 117/72 Pulse Oximetry 100 100 Oxygen Delivery Room Air 10/20/24 08:00 10/20/24 10:00 10/20/24 10:00 Temperature 36.6 C Pulse Rate 83 106 H 94 Respiratory Rate 23 H Blood Pressure 119/84 Pulse Oximetry 100 Oxygen Delivery 10/20/24 10:37 10/20/24 12:00 10/20/24 12:00 Temperature Pulse Rate 90 80 80 Respiratory Rate 16 16 Blood Pressure 130/76 Pulse Oximetry 100 100 Oxygen Delivery Room Air 10/20/24 12:00 10/20/24 12:30 10/20/24 16:00 Temperature 36.4 C 36.4 C Pulse Rate 76 Respiratory Rate 16 Blood Pressure 112/63 Pulse Oximetry Oxygen Delivery Intake/Output Intake/Output: Intake & Output 10/17/24 10/18/24 10/19/24 10/20/24 23:59 23:59 23:59 23:59 Intake Total 6074.5 3786.9 Output Total 3300 1700 Balance 2774.5 2086.9 Meds/Results Medications: Active Medications Generic Name Dose Route Start Last Admin Trade Name Freq PRN Reason Stop Dose Admin Acetaminophen 650 mg 10/19/24 09:17 Acetaminophen 325 Mg Tablet PO Q6H PRN Mild Pain (1-3) or Fever Atenolol 12.5 mg 10/19/24 09:00 10/20/24 10:37 Atenolol 12.5 Mg Tablet PO 12.5 mg DAILY JULIO C Administration Dextrose 12.5 gm 10/20/24 10:13 Dextrose 50% 25 Gm/50 Ml Syringe IV PUSH PRN PRN Hypoglycemia Protocol Enoxaparin Sodium 40 mg 10/20/24 09:00 10/20/24 10:37 Enoxaparin 40 Mg/0.4 Ml Syringe SUB-Q 40 mg DAILY JULIO C Administration Glucagon 1 mg 10/20/24 10:13 Glucagon For Inj 1 Mg Vial IM PRN PRN Hypoglycemia Protocol Glucose 15 gm 10/20/24 10:13 Glucose Oral Gel 15 Gm Of Glucse In 37.5 Gm Tube PO PRN PRN Hypoglycemia Protocol Hydrocortisone Sodium Succinate 100 mg 10/19/24 08:20 10/20/24 16:31 Hydrocortisone Sodium Succinate 100 Mg/2 Ml Vial IV PUSH 100 mg Q8HR JULIO C Administration Dextrose 1,000 mls @ 100 mls/hr 10/20/24 10:13 Dextrose 5% 1,000 Ml IVPB PRN PRN Hypoglycemia Protocol Potassium Chloride 40 meq/ 520 mls @ 130 mls/hr 10/20/24 16:54 Sodium Chloride IVPB 10/20/24 20:53 ONCE ONE Insulin Aspart 4 - 8 units 10/20/24 12:00 10/20/24 16:47 Insulin Aspart (*Bkc) 100 Units/Ml SUB-Q Not Given TIDWM [facility] Protocol Insulin Glargine 20 units 10/21/24 09:00 Insulin Glargine (*Bkc) 100 Units/Ml SUB-Q DAILY [facility] Methimazole 10 mg 10/19/24 09:00 10/20/24 10:37 Methimazole 10 Mg Tab PO 10 mg DAILY JULIO C Administration Ondansetron HCl 4 mg 10/19/24 03:22 Ondansetron Inj 4 Mg/2 Ml Vial IV PUSH On Hold: 10/19/24 04:14 Q4H PRN Nausea Radiology Results: ITS Impressions Chest/Abdomen/Pelvis CTA 10/19/24 05:26 IMPRESSION: 1. Small pneumomediastinum. ADDENDUM: 10/19/2437 Dr. Addison Blandon discussed with Dr. Ara MD at 10/19/2024 5:33 CDT. Chest X-Ray 10/19/24 05:37 IMPRESSION: 1: NO ACUTE CARDIOPULMONARY DISEASE. Thyroid Ultrasound 10/19/24 12:35 IMPRESSION: 1. Heterogeneous hypoechoic thyroid with diffuse increased vascular flow consistent with provided history of Graves' disease. 2. 9 mm TI RADS 4 right thyroid nodule which remains below size criteria for either biopsy or follow-up. Labs Labs: Laboratory Results - last 24 hr 10/19/24 10/19/24 10/19/24 08:52 17:11 17:54 WBC RBC Hgb Hct MCV MCH MCHC RDW Plt Count MPV Immature Gran % (Auto) Neut % (Auto) Lymph % (Auto) [place] % (Auto) Eos % (Auto) Baso % (Auto) Lymph # (Auto) [place] # (Auto) Eos # (Auto) Baso # (Auto) Abs Immat Gran (auto) Absolute Neuts (auto) Absolute Nucleated RBC Nucleated RBC % Sodium 141 Potassium 3.5 Chloride 116 H Carbon Dioxide 7 L Anion Gap 18 H BUN < 2 L Creatinine 0.38 L Estim Creat Clear Calc 185 Estimated GFR > 60 Glucose 225 H POC Capillary Glucose 218 H Hemoglobin A1c C-Peptide 0.5 L Calcium 8.8 Phosphorus Magnesium Total Bilirubin AST ALT Alkaline Phosphatase Total Protein Albumin 10/19/24 10/19/24 10/19/24 18:54 20:05 21:08 WBC RBC Hgb Hct MCV MCH MCHC RDW Plt Count MPV Immature Gran % (Auto) Neut % (Auto) Lymph % (Auto) [place] % (Auto) Eos % (Auto) Baso % (Auto) Lymph # (Auto) [place] # (Auto) Eos # (Auto) Baso # (Auto) Abs Immat Gran (auto) Absolute Neuts (auto) Absolute Nucleated RBC Nucleated RBC % Sodium Potassium Chloride Carbon Dioxide Anion Gap BUN Creatinine Estim Creat Clear Calc Estimated GFR Glucose POC Capillary Glucose 245 H 214 H 244 H Hemoglobin A1c C-Peptide Calcium Phosphorus Magnesium Total Bilirubin AST ALT Alkaline Phosphatase Total Protein Albumin 10/19/24 10/19/24 10/19/24 21:09 22:06 23:17 WBC RBC Hgb Hct MCV MCH MCHC RDW Plt Count MPV Immature Gran % (Auto) Neut % (Auto) Lymph % (Auto) [place] % (Auto) Eos % (Auto) Baso % (Auto) Lymph # (Auto) [place] # (Auto) Eos # (Auto) Baso # (Auto) Abs Immat Gran (auto) Absolute Neuts (auto) Absolute Nucleated RBC Nucleated RBC % Sodium 137 Potassium 3.1 L Chloride 114 H Carbon Dioxide 9 L Anion Gap 14 H BUN < 2 L Creatinine 0.38 L Estim Creat Clear Calc 185 Estimated GFR > 60 Glucose 248 H POC Capillary Glucose 253 H 232 H Hemoglobin A1c C-Peptide Calcium 9.0 Phosphorus Magnesium Total Bilirubin AST ALT Alkaline Phosphatase Total Protein Albumin 10/20/24 10/20/24 10/20/24 00:23 00:53 02:28 WBC RBC Hgb Hct MCV MCH MCHC RDW Plt Count MPV Immature Gran % (Auto) Neut % (Auto) Lymph % (Auto) [place] % (Auto) Eos % (Auto) Baso % (Auto) Lymph # (Auto) [place] # (Auto) Eos # (Auto) Baso # (Auto) Abs Immat Gran (auto) Absolute Neuts (auto) Absolute Nucleated RBC Nucleated RBC % Sodium 137 Potassium 3.8 Chloride 116 H Carbon Dioxide 10 L Anion Gap 11 BUN < 2 L Creatinine 0.32 L Estim Creat Clear Calc 214 Estimated GFR > 60 Glucose 222 H POC Capillary Glucose 218 H 220 H Hemoglobin A1c C-Peptide Calcium 8.8 Phosphorus Magnesium Total Bilirubin AST ALT Alkaline Phosphatase Total Protein Albumin 10/20/24 10/20/24 10/20/24 03:36 04:38 05:35 WBC RBC Hgb Hct MCV MCH MCHC RDW Plt Count MPV Immature Gran % (Auto) Neut % (Auto) Lymph % (Auto) [place] % (Auto) Eos % (Auto) Baso % (Auto) Lymph # (Auto) [place] # (Auto) Eos # (Auto) Baso # (Auto) Abs Immat Gran (auto) Absolute Neuts (auto) Absolute Nucleated RBC Nucleated RBC % Sodium Potassium Chloride Carbon Dioxide Anion Gap BUN Creatinine Estim Creat Clear Calc Estimated GFR Glucose POC Capillary Glucose 214 H 223 H Hemoglobin A1c 10.8 H C-Peptide Calcium Phosphorus Magnesium Total Bilirubin AST ALT Alkaline Phosphatase Total Protein Albumin 10/20/24 10/20/24 10/20/24 05:39 06:30 07:21 WBC 5.9 RBC 4.13 L Hgb 12.2 Hct 34.4 L MCV 83.3 MCH 29.5 MCHC 35.5 RDW 14.6 H Plt Count 237 MPV 10.3 Immature Gran % (Auto) 0.3 Neut % (Auto) 61.0 Lymph % (Auto) 26.2 [place] % (Auto) 11.7 H Eos % (Auto) 0.5 Baso % (Auto) 0.3 Lymph # (Auto) 1.55 [place] # (Auto) 0.7 H Eos # (Auto) 0.0 Baso # (Auto) 0.0 Abs Immat Gran (auto) 0.02 Absolute Neuts (auto) 3.6 Absolute Nucleated RBC 0.000 Nucleated RBC % 0.0 Sodium 139 Potassium 3.2 L Chloride 115 H Carbon Dioxide 15 L Anion Gap 9 BUN 2 L Creatinine 0.32 L Estim Creat Clear Calc 214 Estimated GFR > 60 Glucose 229 H POC Capillary Glucose 201 H 210 H Hemoglobin A1c C-Peptide Calcium 8.7 Phosphorus 1.0 L Magnesium 1.9 Total Bilirubin 0.6 AST 15 ALT 11 Alkaline Phosphatase 71 Total Protein 5.7 L Albumin 3.1 L 10/20/24 10/20/24 10/20/24 08:28 09:16 09:29 WBC RBC Hgb Hct MCV MCH MCHC RDW Plt Count MPV Immature Gran % (Auto) Neut % (Auto) Lymph % (Auto) [place] % (Auto) Eos % (Auto) Baso % (Auto) Lymph # (Auto) [place] # (Auto) Eos # (Auto) Baso # (Auto) Abs Immat Gran (auto) Absolute Neuts (auto) Absolute Nucleated RBC Nucleated RBC % Sodium 138 Potassium 3.1 L Chloride 113 H Carbon Dioxide 15 L Anion Gap 10 BUN 2 L Creatinine 0.29 L Estim Creat Clear Calc 232 Estimated GFR > 60 Glucose 192 H POC Capillary Glucose 184 H 199 H Hemoglobin A1c C-Peptide Calcium 9.0 Phosphorus Magnesium Total Bilirubin AST ALT Alkaline Phosphatase Total Protein Albumin 10/20/24 10/20/24 10/20/24 10:36 11:26 12:23 WBC RBC Hgb Hct MCV MCH MCHC RDW Plt Count MPV Immature Gran % (Auto) Neut % (Auto) Lymph % (Auto) [place] % (Auto) Eos % (Auto) Baso % (Auto) Lymph # (Auto) [place] # (Auto) Eos # (Auto) Baso # (Auto) Abs Immat Gran (auto) Absolute Neuts (auto) Absolute Nucleated RBC Nucleated RBC % Sodium Potassium Chloride Carbon Dioxide Anion Gap BUN Creatinine Estim Creat Clear Calc Estimated GFR Glucose POC Capillary Glucose 226 H 224 H 240 H Hemoglobin A1c C-Peptide Calcium Phosphorus Magnesium Total Bilirubin AST ALT Alkaline Phosphatase Total Protein Albumin 10/20/24 10/20/24 16:04 16:19 WBC RBC Hgb Hct MCV MCH MCHC RDW Plt Count MPV Immature Gran % (Auto) Neut % (Auto) Lymph % (Auto) [place] % (Auto) Eos % (Auto) Baso % (Auto) Lymph # (Auto) [place] # (Auto) Eos # (Auto) Baso # (Auto) Abs Immat Gran (auto) Absolute Neuts (auto) Absolute Nucleated RBC Nucleated RBC % Sodium 137 Potassium 3.0 L Chloride 111 H Carbon Dioxide 16 L Anion Gap 10 BUN 4 L Creatinine 0.34 L Estim Creat Clear Calc 203 Estimated GFR > 60 Glucose 192 H POC Capillary Glucose 178 H Hemoglobin A1c C-Peptide Calcium 8.8 Phosphorus Magnesium Total Bilirubin AST ALT Alkaline Phosphatase Total Protein Albumin Quality VTE Prophylaxis VTE prophylaxis: pharmacologic ordered
[2024-10-20] MEDS: POTASSIUM CHLORIDE INJ 40 MEQ in SODIUM CHLORIDE 0.9% IV 500 ML 130 MEQ IVPB (18:05)
[2024-10-20] MEDS: POTASSIUM CHLORIDE 20 MEQ PACKET (FOR LIQUID) 40 MEQ PO (18:05)
[2024-10-21] VITALS: BP 103/65; PULSE 77; RESP 20; TEMP 36.3; O2SAT 100
[2024-10-21] MEDS: INSULIN ASPART (*BKC) 100 UNITS/ML SUB-Q ×5 (00:46→22:41)
[2024-10-21 00:50] LABS: Anion Gap 13 mmol/L (4-12); Blood Urea Nitrogen 5 mg/dL (7-17); Calcium 8.8 mg/dL (8.4-10.2); Carbon Dioxide 17 mmol/L (22-30); Chloride 107 mmol/L (98-107); Estimated CRCL calculation 181 ml/min; Estimated Glomerular Filt Rate > 60; Glucose 289 mg/dL (65-110); Potassium 3.5 mmol/L (3.4-5.0); Sodium 137 mmol/L (137-145)
[2024-10-21 05:30] LABS: Hematocrit 33.2 % (37.0-47.0); Hemoglobin 11.7 g/dL (12.0-15.0); Immature Granulocyte Percent A 0.6 % (0-0.5); Lymphocytes Absolute Auto 1.21 K/mm3 (0.9-3.2); Mean Corpuscular HGB Conc 35.2 g/dl (32-36); Mean Corpuscular Hemoglobin 29.5 pg (26-34); Mean Corpuscular Volume 83.6 fl (80-100); Nucleated Red Blood Cells Absolute Auto 0.000 K/mm3 (0.0-0.012); Nucleated Red Blood Cells Perc 0.0 % (0.0-0.2); Platelet Count Result 203 k/mm3 (150-375); Red Blood Count 3.97 M/mm3 (4.2-5.4); White Blood Count 4.6 K/mm3 (4.5-10.0)
[2024-10-21 05:54] LABS: Alanine Aminotransferase 11 U/L (6-35); Albumin Level 3.2 g/dL (3.5-5.1); Alkaline Phosphatase 69 U/L (38-126); Anion Gap 10 mmol/L (4-12); Aspartate Amino Transferase 17 U/L (14-36); Bilirubin,Total 0.7 mg/dL (0.2-1.3); Blood Urea Nitrogen 5 mg/dL (7-17); Calcium 8.7 mg/dL (8.4-10.2); Carbon Dioxide 20 mmol/L (22-30); Chloride 108 mmol/L (98-107); Estimated CRCL calculation 194 ml/min; Estimated Glomerular Filt Rate > 60; Glucose 240 mg/dL (65-110); Magnesium 1.9 mg/dL (1.6-2.3); Potassium 3.6 mmol/L (3.4-5.0); Sodium 138 mmol/L (137-145); Total Protein 5.6 g/dL (6.3-8.2)
[2024-10-21] MEDS: HYDROCORTISONE SODIUM SUCCINATE 100 MG/2 ML VIAL IV PUSH ×2 (06:48→17:23)
[2024-10-21 08:00] VITALS: BP 105/64; PULSE 68; RESP 16; TEMP 36.9; O2SAT 100
[2024-10-21] MEDS: INSULIN GLARGINE (*BKC) 100 UNITS/ML 25 UNITS SUB-Q (08:32)
[2024-10-21 08:35] VITALS: PULSE 78
[2024-10-21] MEDS: atenoloL 12.5 MG TABLET PO (08:35)
[2024-10-21] MEDS: ENOXAPARIN 40 MG/0.4 ML SYRINGE SUB-Q (08:36)
--- NOTE | 2024-10-21 11:55 | PM.IMPN ---
Progress Note: A&P Assessment and Plan (1) DKA (diabetic ketoacidosis): Code(s): E11.10 - Type 2 diabetes mellitus with ketoacidosis without coma Status: Acute Assessment and Plan: 10/19: Patient presented with nausea, vomiting, abdominal pain, increased thirst. In the ED she was found to be in diabetic ketoacidosis with decreased CO2, anion gap was not calculable, elevated blood sugars, UA showed ketones and glucose. Patient was given 4 L normal saline bolus in the ER, started on insulin infusion per DKA protocol Lantus increased to 25 units daily, POCT, sliding scale and hypoglycemia protocol anti CODY 65 antibody and C-peptide is pending Dietitian and business sales consultant consulted Daily BMP (2) Hyperthyroidism: Code(s): E05.90 - Thyrotoxicosis, unspecified without thyrotoxic crisis or storm Status: Acute Assessment and Plan: Patient has a history of Graves disease, is noncompliant with her medications -patient has exophthalmos -TSH significantly low, T4 elevated -continue methimazole, atenolol -reduced hydrocortisone 200 mg b.i.d. from t.i.d. -10/19: Thyroid ultrasound: Heterogeneous hypoechoic thyroid with diffuse increased vascular flow consistent with provided history of Graves' disease. 9 mm TI RADS 4 right thyroid nodule which remains below size criteria for either biopsy or follow-up. -patient was provided name, address and phone number of an material expediter that she may follow as outpatient (3) Pneumomediastinum: Code(s): J98.2 - Interstitial emphysema Status: Acute Assessment and Plan: Patient has a new small pneumomediastinum on CT scan of the chest, could be related to nausea/vomiting -will continue to monitor Time Spent With Patient Time: 20 minutes Subjective Date/time seen: 10/21/24 11:55 Interval history: Patient looks much better today. Mother's sister was at bedside. She denies any chest pain, shortness a breath, abdominal pain, nausea and vomiting. Hydrocortisone was reduced 100 mg b.i.d.. Lantus increased to 25 units daily. Plan discussed with family and patient. Exam Narrative: APPEARANCE: No acute distress, comfortable and conversant EYES: EOMI HEENT: Normocephalic, atraumatic, OMM RESPIRATORY: No respiratory distress Clear to auscultation bilaterally with no rhonchi wheezing or rales. CARDIOVASCULAR: RRR, S1 and S2 without murmurs rubs or gallops. ABDOMINAL: Soft, nondistended, nontender. MSK: 5/5 motor strength throughout all extremities NEURO: Awake and alert. Following commands, speech normal, no focal deficits SKIN:: Warm, dry. No rashes lesions or abrasions PSYCHIATRIC: Normal affect/mood Objective Data Vital Signs Vital Signs: Vital Signs - 24 hr 10/20/24 12:00 10/20/24 12:00 10/20/24 12:00 Temperature Pulse Rate 80 80 76 Respiratory Rate 16 16 Blood Pressure 130/76 Pulse Oximetry 100 100 Oxygen Delivery Room Air 10/20/24 12:30 10/20/24 16:00 10/21/24 00:00 Temperature 36.4 C 36.4 C 36.3 C L Pulse Rate 77 Respiratory Rate 16 20 Blood Pressure 112/63 103/65 Pulse Oximetry 100 Oxygen Delivery 10/21/24 08:30 10/21/24 08:35 Temperature Pulse Rate 78 Respiratory Rate Blood Pressure Pulse Oximetry Oxygen Delivery Room Air Intake/Output Intake/Output: Intake & Output 10/18/24 10/19/24 10/20/24 10/21/24 23:59 23:59 23:59 23:59 Intake Total 6074.5 4266.9 980 Output Total 3300 1700 Balance 2774.5 2566.9 980 Meds/Results Medications: Active Medications Generic Name Dose Route Start Last Admin Trade Name Freq PRN Reason Stop Dose Admin Acetaminophen 650 mg 10/19/24 09:17 Acetaminophen 325 Mg Tablet PO Q6H PRN Mild Pain (1-3) or Fever Atenolol 12.5 mg 10/19/24 09:00 10/21/24 08:35 Atenolol 12.5 Mg Tablet PO 12.5 mg DAILY JULIO C Administration Dextrose 12.5 gm 10/20/24 10:13 Dextrose 50% 25 Gm/50 Ml Syringe IV PUSH PRN PRN Hypoglycemia Protocol Enoxaparin Sodium 40 mg 10/20/24 09:00 10/21/24 08:36 Enoxaparin 40 Mg/0.4 Ml Syringe SUB-Q 40 mg DAILY JULIO C Administration Glucagon 1 mg 10/20/24 10:13 Glucagon For Inj 1 Mg Vial IM PRN PRN Hypoglycemia Protocol Glucose 15 gm 10/20/24 10:13 Glucose Oral Gel 15 Gm Of Glucse In 37.5 Gm Tube PO PRN PRN Hypoglycemia Protocol Hydrocortisone Sodium Succinate 100 mg 10/21/24 18:00 Hydrocortisone Sodium Succinate 100 Mg/2 Ml Vial IV PUSH Q12H JULIO C Insulin Aspart 4 - 8 units 10/20/24 12:00 10/21/24 08:30 Insulin Aspart (*Bkc) 100 Units/Ml SUB-Q 4 units TIDWM JULIO C Administration Protocol Insulin Aspart 2 - 4 units 10/20/24 23:50 10/21/24 00:46 Insulin Aspart (*Bkc) 100 Units/Ml SUB-Q 2 units HS JULIO C Administration Protocol Insulin Glargine 25 units 10/21/24 09:00 10/21/24 08:32 Insulin Glargine (*Bkc) 100 Units/Ml SUB-Q 25 units DAILY JULIO C Administration Methimazole 10 mg 10/19/24 09:00 10/21/24 08:35 Methimazole 10 Mg Tab PO 10 mg DAILY JULIO C Administration Ondansetron HCl 4 mg 10/19/24 03:22 Ondansetron Inj 4 Mg/2 Ml Vial IV PUSH On Hold: 10/19/24 04:14 Q4H PRN Nausea Radiology Results: ITS Impressions Chest/Abdomen/Pelvis CTA 10/19/24 05:26 IMPRESSION: 1. Small pneumomediastinum. ADDENDUM: 10/19/[address] Addison Blandon discussed with Dr. Ara MD at 10/19/2024 5:33 CDT. Chest X-Ray 10/19/24 05:37 IMPRESSION: 1: NO ACUTE CARDIOPULMONARY DISEASE. Thyroid Ultrasound 10/19/24 12:35 IMPRESSION: 1. Heterogeneous hypoechoic thyroid with diffuse increased vascular flow consistent with provided history of Graves' disease. 2. 9 mm TI RADS 4 right thyroid nodule which remains below size criteria for either biopsy or follow-up. Labs Labs: Laboratory Results - last 24 hr 10/20/24 10/20/24 10/20/24 12:23 16:04 16:19 WBC RBC Hgb Hct MCV MCH MCHC RDW Plt Count MPV Immature Gran % (Auto) Neut % (Auto) Lymph % (Auto) [place] % (Auto) Eos % (Auto) Baso % (Auto) Lymph # (Auto) [place] # (Auto) Eos # (Auto) Baso # (Auto) Abs Immat Gran (auto) Absolute Neuts (auto) Absolute Nucleated RBC Nucleated RBC % Sodium 137 Potassium 3.0 L Chloride 111 H Carbon Dioxide 16 L Anion Gap 10 BUN 4 L Creatinine 0.34 L Estim Creat Clear Calc 203 Estimated GFR > 60 Glucose 192 H POC Capillary Glucose 240 H 178 H Calcium 8.8 Phosphorus Magnesium Total Bilirubin AST ALT Alkaline Phosphatase Total Protein Albumin 10/20/24 10/20/24 10/21/24 21:26 23:35 00:43 WBC RBC Hgb Hct MCV MCH MCHC RDW Plt Count MPV Immature Gran % (Auto) Neut % (Auto) Lymph % (Auto) [place] % (Auto) Eos % (Auto) Baso % (Auto) Lymph # (Auto) [place] # (Auto) Eos # (Auto) Baso # (Auto) Abs Immat Gran (auto) Absolute Neuts (auto) Absolute Nucleated RBC Nucleated RBC % Sodium 137 Potassium 3.5 Chloride 107 Carbon Dioxide 17 L Anion Gap 13 H BUN 5 L Creatinine 0.39 L Estim Creat Clear Calc 181 Estimated GFR > 60 Glucose 289 H POC Capillary Glucose 313 H 283 H Calcium 8.8 Phosphorus Magnesium Total Bilirubin AST ALT Alkaline Phosphatase Total Protein Albumin 10/21/24 10/21/24 05:03 07:58 WBC 4.6 RBC 3.97 L Hgb 11.7 L Hct 33.2 L MCV 83.6 MCH 29.5 MCHC 35.2 RDW 14.6 H Plt Count 203 MPV 10.6 H Immature Gran % (Auto) 0.6 H Neut % (Auto) 64.6 Lymph % (Auto) 26.2 [place] % (Auto) 8.2 Eos % (Auto) 0.2 Baso % (Auto) 0.2 Lymph # (Auto) 1.21 [place] # (Auto) 0.4 Eos # (Auto) 0.0 Baso # (Auto) 0.0 Abs Immat Gran (auto) 0.03 Absolute Neuts (auto) 3.0 Absolute Nucleated RBC 0.000 Nucleated RBC % 0.0 Sodium 138 Potassium 3.6 Chloride 108 H Carbon Dioxide 20 L Anion Gap 10 BUN 5 L Creatinine 0.36 L Estim Creat Clear Calc 194 Estimated GFR > 60 Glucose 240 H POC Capillary Glucose 247 H Calcium 8.7 Phosphorus 3.8 Magnesium 1.9 Total Bilirubin 0.7 AST 17 ALT 11 Alkaline Phosphatase 69 Total Protein 5.6 L Albumin 3.2 L Quality VTE Prophylaxis VTE prophylaxis: pharmacologic ordered (Lovenox)
[2024-10-21 16:00] VITALS: BP 110/64; PULSE 62; RESP 18; TEMP 36.8; O2SAT 99
[2024-10-21 22:27] VITALS: BP 112/69; PULSE 78; RESP 18; TEMP 36.5; O2SAT 100
[2024-10-22 05:49] LABS: Hematocrit 33.2 % (37.0-47.0); Hemoglobin 11.9 g/dL (12.0-15.0); Immature Granulocyte Percent A 0.2 % (0-0.5); Lymphocytes Absolute Auto 2.03 K/mm3 (0.9-3.2); Mean Corpuscular HGB Conc 35.8 g/dl (32-36); Mean Corpuscular Hemoglobin 30.8 pg (26-34); Mean Corpuscular Volume 86.0 fl (80-100); Nucleated Red Blood Cells Absolute Auto 0.000 K/mm3 (0.0-0.012); Nucleated Red Blood Cells Perc 0.0 % (0.0-0.2); Platelet Count Result 195 k/mm3 (150-375); Red Blood Count 3.86 M/mm3 (4.2-5.4); White Blood Count 4.4 K/mm3 (4.5-10.0)
[2024-10-22 06:12] VITALS: BP 110/68; PULSE 65; RESP 18; TEMP 36.5; O2SAT 100
[2024-10-22] MEDS: HYDROCORTISONE SODIUM SUCCINATE 100 MG/2 ML VIAL IV PUSH (06:15)
[2024-10-22 06:18] LABS: Alanine Aminotransferase 10 U/L (6-35); Albumin Level 3.1 g/dL (3.5-5.1); Alkaline Phosphatase 65 U/L (38-126); Anion Gap 13 mmol/L (4-12); Aspartate Amino Transferase 15 U/L (14-36); Bilirubin,Total 0.7 mg/dL (0.2-1.3); Blood Urea Nitrogen 8 mg/dL (7-17); Calcium 8.9 mg/dL (8.4-10.2); Carbon Dioxide 18 mmol/L (22-30); Chloride 106 mmol/L (98-107); Estimated CRCL calculation 166 ml/min; Estimated Glomerular Filt Rate > 60; Glucose 239 mg/dL (65-110); Magnesium 2.0 mg/dL (1.6-2.3); Potassium 2.8 mmol/L (3.4-5.0); Sodium 137 mmol/L (137-145); Total Protein 5.5 g/dL (6.3-8.2)
--- NOTE | 2024-10-22 08:43 | PM.IMPN ---
Progress Note: A&P Assessment and Plan (1) DKA (diabetic ketoacidosis): Code(s): E11.10 - Type 2 diabetes mellitus with ketoacidosis without coma Status: Acute Assessment and Plan: 10/19: Patient presented with nausea, vomiting, abdominal pain, increased thirst. In the ED she was found to be in diabetic ketoacidosis with decreased CO2, anion gap was not calculable, elevated blood sugars, UA showed ketones and glucose. Patient was given 4 L normal saline bolus in the ER, started on insulin infusion per DKA protocol Lantus increased to 25 units daily, POCT, sliding scale and hypoglycemia protocol C-peptide is low, 0.5 Anti-CODY 65 pending Dietitian and personal development educator consulted Daily BMP (2) Hyperthyroidism: Code(s): E05.90 - Thyrotoxicosis, unspecified without thyrotoxic crisis or storm Status: Acute Assessment and Plan: Patient has a history of Graves disease, is noncompliant with her medications -patient has exophthalmos -TSH significantly low, T4 elevated -continue methimazole, atenolol -reduced hydrocortisone 50 mg b.i.d. from 100 mg BID -10/19: Thyroid ultrasound: Heterogeneous hypoechoic thyroid with diffuse increased vascular flow consistent with provided history of Graves' disease. 9 mm TI RADS 4 right thyroid nodule which remains below size criteria for either biopsy or follow-up. -patient was provided name, address and phone number of an datastage developer that she may follow as outpatient (3) Pneumomediastinum: Code(s): J98.2 - Interstitial emphysema Status: Acute Assessment and Plan: Patient has a new small pneumomediastinum on CT scan of the chest, could be related to nausea/vomiting -will continue to monitor Plan Home tomorrow Time Spent With Patient Time: 20 minutes Subjective Date/time seen: 10/22/24 08:43 Interval history: Patient looks and feels better. She slept through the night. Denies nausea, vomiting, and abdominal pain. She tolerates her medication. She is excited to go home. Review of Systems Review of Systems: All systems reviewed & are unremarkable except as noted in HPI and below Exam Narrative: APPEARANCE: No acute distress, comfortable and conversant EYES: EOMI HEENT: Normocephalic, atraumatic, OMM RESPIRATORY: No respiratory distress Clear to auscultation bilaterally with no rhonchi wheezing or rales. CARDIOVASCULAR: RRR, S1 and S2 without murmurs rubs or gallops. ABDOMINAL: Soft, nondistended, nontender. MSK: 5/5 motor strength throughout all extremities NEURO: Awake and alert. Following commands, speech normal, no focal deficits SKIN:: Warm, dry. No rashes lesions or abrasions PSYCHIATRIC: Normal affect/mood Objective Data Vital Signs Vital Signs: Vital Signs - 24 hr 10/21/24 16:00 10/21/24 20:00 10/21/24 22:27 Temperature 36.8 C 36.5 C Pulse Rate 62 78 Respiratory Rate 18 18 Blood Pressure 110/64 112/69 Pulse Oximetry 99 100 Oxygen Delivery Room Air 10/22/24 06:12 Temperature 36.5 C Pulse Rate 65 Respiratory Rate 18 Blood Pressure 110/68 Pulse Oximetry 100 Oxygen Delivery Intake/Output Intake/Output: Intake & Output 10/19/24 10/20/24 10/21/24 10/22/24 23:59 23:59 23:59 23:59 Intake Total 6074.5 4266.9 3680 100 Output Total 3300 1700 Balance 2774.5 2566.9 3680 100 Meds/Results Medications: Active Medications Generic Name Dose Route Start Last Admin Trade Name Freq PRN Reason Stop Dose Admin Acetaminophen 650 mg 10/19/24 09:17 Acetaminophen 325 Mg Tablet PO Q6H PRN Mild Pain (1-3) or Fever Atenolol 12.5 mg 10/19/24 09:00 10/21/24 08:35 Atenolol 12.5 Mg Tablet PO 12.5 mg DAILY JULIO C Administration Dextrose 12.5 gm 10/20/24 10:13 Dextrose 50% 25 Gm/50 Ml Syringe IV PUSH PRN PRN Hypoglycemia Protocol Enoxaparin Sodium 40 mg 10/20/24 09:00 10/21/24 08:36 Enoxaparin 40 Mg/0.4 Ml Syringe SUB-Q 40 mg DAILY JULIO C Administration Glucagon 1 mg 10/20/24 10:13 Glucagon For Inj 1 Mg Vial IM PRN PRN Hypoglycemia Protocol Glucose 15 gm 10/20/24 10:13 Glucose Oral Gel 15 Gm Of Glucse In 37.5 Gm Tube PO PRN PRN Hypoglycemia Protocol Hydrocortisone Sodium Succinate 50 mg 10/22/24 08:39 Hydrocortisone Sodium Succinate 100 Mg/2 Ml Vial IV PUSH Q12H JULIO C Potassium Chloride 40 meq/ 520 mls @ 130 mls/hr 10/22/24 07:09 Sodium Chloride IVPB 10/22/24 11:08 ONCE ONE Insulin Aspart 4 - 8 units 10/20/24 12:00 10/21/24 17:24 Insulin Aspart (*Bkc) 100 Units/Ml SUB-Q 5 units TIDWM JULIO C Administration Protocol Insulin Aspart 2 - 4 units 10/20/24 23:50 10/21/24 22:41 Insulin Aspart (*Bkc) 100 Units/Ml SUB-Q 2 units HS JULIO C Administration Protocol Insulin Glargine 25 units 10/21/24 09:00 10/21/24 08:32 Insulin Glargine (*Bkc) 100 Units/Ml SUB-Q 25 units DAILY JULIO C Administration Methimazole 10 mg 10/19/24 09:00 10/21/24 08:35 Methimazole 10 Mg Tab PO 10 mg DAILY JULIO C Administration Ondansetron HCl 4 mg 10/19/24 03:22 Ondansetron Inj 4 Mg/2 Ml Vial IV PUSH On Hold: 10/19/24 04:14 Q4H PRN Nausea Radiology Results: ITS Impressions Chest/Abdomen/Pelvis CTA 10/19/24 05:26 IMPRESSION: 1. Small pneumomediastinum. ADDENDUM: 10/19/[address] Addison Blandon discussed with Dr. Ara MD at 10/19/2024 5:33 CDT. Chest X-Ray 10/19/24 05:37 IMPRESSION: 1: NO ACUTE CARDIOPULMONARY DISEASE. Thyroid Ultrasound 10/19/24 12:35 IMPRESSION: 1. Heterogeneous hypoechoic thyroid with diffuse increased vascular flow consistent with provided history of Graves' disease. 2. 9 mm TI RADS 4 right thyroid nodule which remains below size criteria for either biopsy or follow-up. Labs Labs: Laboratory Results - last 24 hr 10/21/24 10/21/24 10/21/24 11:45 16:57 22:26 WBC RBC Hgb Hct MCV MCH MCHC RDW Plt Count MPV Immature Gran % (Auto) Neut % (Auto) Lymph % (Auto) [place] % (Auto) Eos % (Auto) Baso % (Auto) Lymph # (Auto) [place] # (Auto) Eos # (Auto) Baso # (Auto) Abs Immat Gran (auto) Absolute Neuts (auto) Absolute Nucleated RBC Nucleated RBC % Sodium Potassium Chloride Carbon Dioxide Anion Gap BUN Creatinine Estim Creat Clear Calc Estimated GFR Glucose POC Capillary Glucose 263 H 252 H 262 H Calcium Magnesium Total Bilirubin AST ALT Alkaline Phosphatase Total Protein Albumin 10/22/24 10/22/24 04:54 07:45 WBC 4.4 L RBC 3.86 L Hgb 11.9 L Hct 33.2 L MCV 86.0 MCH 30.8 MCHC 35.8 RDW 14.8 H Plt Count 195 MPV 11.1 H Immature Gran % (Auto) 0.2 Neut % (Auto) 41.3 L Lymph % (Auto) 46.7 H [place] % (Auto) 10.6 H Eos % (Auto) 0.7 Baso % (Auto) 0.5 Lymph # (Auto) 2.03 [place] # (Auto) 0.5 Eos # (Auto) 0.0 Baso # (Auto) 0.0 Abs Immat Gran (auto) 0.01 Absolute Neuts (auto) 1.8 Absolute Nucleated RBC 0.000 Nucleated RBC % 0.0 Sodium 137 Potassium 2.8 L* Chloride 106 Carbon Dioxide 18 L Anion Gap 13 H BUN 8 Creatinine 0.43 L Estim Creat Clear Calc 166 Estimated GFR > 60 Glucose 239 H POC Capillary Glucose 229 H Calcium 8.9 Magnesium 2.0 Total Bilirubin 0.7 AST 15 ALT 10 Alkaline Phosphatase 65 Total Protein 5.5 L Albumin 3.1 L Quality VTE Prophylaxis VTE prophylaxis: pharmacologic ordered (Lovenox)
[2024-10-22 08:55] VITALS: PULSE 78; O2SAT 100
[2024-10-22] MEDS: POTASSIUM CHLORIDE 20 MEQ PACKET (FOR LIQUID) 40 MEQ PO (08:55)
[2024-10-22] MEDS: atenoloL 12.5 MG TABLET PO (08:55)
[2024-10-22] MEDS: ENOXAPARIN 40 MG/0.4 ML SYRINGE SUB-Q (08:56)
[2024-10-22] MEDS: POTASSIUM CHLORIDE INJ 40 MEQ in SODIUM CHLORIDE 0.9% IV 500 ML 130 MEQ IVPB (08:56)
[2024-10-22] MEDS: INSULIN GLARGINE (*BKC) 100 UNITS/ML 25 UNITS SUB-Q (08:59)
[2024-10-22] MEDS: INSULIN ASPART (*BKC) 100 UNITS/ML SUB-Q ×4 (09:00→20:47)
[2024-10-22 14:31] VITALS: BP 109/60; PULSE 76; RESP 18; TEMP 36.2; O2SAT 100
[2024-10-22 16:17] LABS: Anion Gap 10 mmol/L (4-12); Blood Urea Nitrogen 9 mg/dL (7-17); Calcium 8.7 mg/dL (8.4-10.2); Carbon Dioxide 19 mmol/L (22-30); Chloride 106 mmol/L (98-107); Estimated CRCL calculation 185 ml/min; Estimated Glomerular Filt Rate > 60; Glucose 301 mg/dL (65-110); Potassium 3.4 mmol/L (3.4-5.0); Sodium 135 mmol/L (137-145)
[2024-10-22] MEDS: HYDROCORTISONE SODIUM SUCCINATE 100 MG/2 ML VIAL 50 MG IV PUSH (17:28)
[2024-10-22 21:59] VITALS: BP 116/57; PULSE 55; RESP 18; TEMP 35.8; O2SAT 100
[2024-10-23] MEDS: HYDROCORTISONE SODIUM SUCCINATE 100 MG/2 ML VIAL 50 MG IV PUSH (05:14)
[2024-10-23 05:20] LABS: Hematocrit 31.8 % (37.0-47.0); Hemoglobin 11.3 g/dL (12.0-15.0); Immature Granulocyte Percent A 0.4 % (0-0.5); Lymphocytes Absolute Auto 2.43 K/mm3 (0.9-3.2); Mean Corpuscular HGB Conc 35.5 g/dl (32-36); Mean Corpuscular Hemoglobin 30.0 pg (26-34); Mean Corpuscular Volume 84.4 fl (80-100); Nucleated Red Blood Cells Absolute Auto 0.000 K/mm3 (0.0-0.012); Nucleated Red Blood Cells Perc 0.0 % (0.0-0.2); Platelet Count Result 182 k/mm3 (150-375); Red Blood Count 3.77 M/mm3 (4.2-5.4); White Blood Count 4.7 K/mm3 (4.5-10.0)
[2024-10-23 05:38] LABS: Alanine Aminotransferase 14 U/L (6-35); Albumin Level 3.0 g/dL (3.5-5.1); Alkaline Phosphatase 62 U/L (38-126); Anion Gap 9 mmol/L (4-12); Aspartate Amino Transferase 21 U/L (14-36); Bilirubin,Total 0.4 mg/dL (0.2-1.3); Blood Urea Nitrogen 7 mg/dL (7-17); Calcium 8.8 mg/dL (8.4-10.2); Carbon Dioxide 24 mmol/L (22-30); Chloride 104 mmol/L (98-107); Estimated CRCL calculation 189 ml/min; Estimated Glomerular Filt Rate > 60; Glucose 218 mg/dL (65-110); Magnesium 1.8 mg/dL (1.6-2.3); Potassium 2.9 mmol/L (3.4-5.0); Sodium 137 mmol/L (137-145); Total Protein 5.4 g/dL (6.3-8.2)
[2024-10-23 06:00] VITALS: BP 115/66; PULSE 60; RESP 18; TEMP 36.4; O2SAT 100
[2024-10-23] MEDS: ENOXAPARIN 40 MG/0.4 ML SYRINGE SUB-Q (09:32)
[2024-10-23 09:33] VITALS: PULSE 62
[2024-10-23] MEDS: POTASSIUM CHLORIDE 20 MEQ ER TABLET 40 MEQ PO ×3 (09:33→17:50)
[2024-10-23] MEDS: atenoloL 12.5 MG TABLET PO (09:33)
[2024-10-23] MEDS: INSULIN GLARGINE (*BKC) 100 UNITS/ML 25 UNITS SUB-Q (09:36)
[2024-10-23] MEDS: INSULIN ASPART (*BKC) 100 UNITS/ML SUB-Q ×3 (09:37→20:53)
[2024-10-23 15:01] LABS: Potassium 3.6 mmol/L (3.4-5.0)
[2024-10-23 15:09] VITALS: BP 116/78; PULSE 54; RESP 18; TEMP 36.6; O2SAT 100
--- NOTE | 2024-10-23 16:45 | P.DS_ITS ---
DS: Admitting Diagnosis Discharge Date 10/23/2024 Admitting Diagnosis Abdominal pain, constipation, nausea and vomiting DS: Discharge Diagnosis Discharge Diagnosis (1) Pneumomediastinum: Code(s): J98.2 - Interstitial emphysema Status: Acute (2) Hyperthyroidism: Code(s): E05.90 - Thyrotoxicosis, unspecified without thyrotoxic crisis or storm Status: Acute (3) Newly diagnosed diabetes: Code(s): E11.9 - Type 2 diabetes mellitus without complications Status: Acute (4) Hypocapnemia: Code(s): R79.81 - Abnormal blood-gas level Status: Acute (5) DKA (diabetic ketoacidosis): Code(s): E11.10 - Type 2 diabetes mellitus with ketoacidosis without coma Status: Acute Plan Continue methimazole 10 mg daily Continue atenolol 12.5 mg daily Continue insulin glargine 25 units daily Check your sugar at least 3 times daily Call and make an appointment with his convenience recycle center tech and PCP BMP and CBC in 1 week DS: Summary Hospital Course Reason for hospitalization: Lisa Ray is a 19 year old female with DKA and thyrotoxicosis. She was in ICU for DKA and thyrotoxicosis treatment. Hospital Course: Lisa Ray is a 19 year old female with pmhx of previous diseases long time ago but she was not compliant was her medication nor she did not see any convenience recycle center tech. She present to the emergency room for abdominal pain, constipation, nausea and vomiting. Prior to the symptoms she was experiencing a polyphagia, polyuria and polydipsia proceeded with chest palpitation. Lab significant for very low TSH and very high free T4. Ultrasound of the neck shows heterogeneous hypoechoic thyroid was diffuse increased vascular flow consistent with provided history of Graves disease. She was treated in ICU with methimazole 10 mg p.o. daily, atenolol 12.5 mg p.o. daily and hydrocortisone 100 mg IV push every 8 hours. She was on a DKA protocol. Hydrocortisone was weaned. She was placed on glargine 25 units daily and has glucose was mildly controlled. Patient was feeling much better and she wants to go home. Her po tassium was low in the morning and they replaced and checked potassium is normal now. outreach educator give her instruction how she can administer insulin to her abdomen, family and patient discomfort of with insulin administration. Patient was for hemodynamically stable and afebrile prior to discharge. She was discharged home 10/23/2024 Time Spent with Patient Time attestation: Total time spent providing and/or coordinating discharge services: Exam Narrative: APPEARANCE: No acute distress, comfortable and conversant EYES: EOMI HEENT: Normocephalic, atraumatic, OMM RESPIRATORY: No respiratory distress Clear to auscultation bilaterally with no rhonchi wheezing or rales. CARDIOVASCULAR: RRR, S1 and S2 without murmurs rubs or gallops. ABDOMINAL: Soft, nondistended, nontender. MSK: 5/5 motor strength throughout all extremities NEURO: Awake and alert. Following commands, speech normal, no focal deficits SKIN:: Warm, dry. No rashes lesions or abrasions PSYCHIATRIC: Normal affect/mood DS: Data Data Completed and Pending Labs on day of discharge: Labs from last 24 hours 10/23/24 10/23/24 10/23/24 14:47 11:44 08:08 WBC RBC Hgb Hct MCV MCH MCHC RDW Plt Count MPV Immature Gran % (Auto) Neut % (Auto) Lymph % (Auto) [place] % (Auto) Eos % (Auto) Baso % (Auto) Lymph # (Auto) [place] # (Auto) Eos # (Auto) Baso # (Auto) Abs Immat Gran (auto) Absolute Neuts (auto) Absolute Nucleated RBC Nucleated RBC % Sodium Potassium 3.6 Chloride Carbon Dioxide Anion Gap BUN Creatinine Estim Creat Clear Calc Estimated GFR Glucose POC Capillary Glucose 216 H 238 H Calcium Magnesium Total Bilirubin AST ALT Alkaline Phosphatase Total Protein Albumin 10/23/24 10/22/24 10/22/24 04:51 20:20 16:53 WBC 4.7 RBC 3.77 L Hgb 11.3 L Hct 31.8 L MCV 84.4 MCH 30.0 MCHC 35.5 RDW 14.5 Plt Count 182 MPV 10.6 H Immature Gran % (Auto) 0.4 Neut % (Auto) 36.1 L Lymph % (Auto) 51.8 H [place] % (Auto) 9.4 H Eos % (Auto) 1.7 Baso % (Auto) 0.6 Lymph # (Auto) 2.43 [place] # (Auto) 0.4 Eos # (Auto) 0.1 Baso # (Auto) 0.0 Abs Immat Gran (auto) 0.02 Absolute Neuts (auto) 1.7 Absolute Nucleated RBC 0.000 Nucleated RBC % 0.0 Sodium 137 Potassium 2.9 L Chloride 104 Carbon Dioxide 24 Anion Gap 9 BUN 7 Creatinine 0.37 L Estim Creat Clear Calc 189 Estimated GFR > 60 Glucose 218 H POC Capillary Glucose 259 H 258 H Calcium 8.8 Magnesium 1.8 Total Bilirubin 0.4 AST 21 ALT 14 Alkaline Phosphatase 62 Total Protein 5.4 L Albumin 3.0 L Preliminary micro results at discharge 10/19/24 01:07 Blood Culture - Preliminary Blood 10/19/24 01:07 Blood Culture - Preliminary Blood Discharge Plan Discharge Attending physician on discharge: Gaudencio Gonzalez Consulting providers: Cathi Parra; Felicia Farah Discharging Clinician: Leah Larsen Anticipated Discharge Date/Time: 10/23/24 16:37 Patient Disposition: Home Activity: unlimited Diet: diabetic Discharge Instructions: Continue taking methimazole 10 mg p.o. daily Continue taking atenolol 12.5 mg p.o. daily Continue insulin glargine 25 units subQ daily please make appointment with your PCP and blood work in 1 week Patient Instructions: Antibiotic Form, Basic Carbohydrate Counting (DC) Patient Language: Ghanaian Stand Alone Forms: General Discharge Information Follow-up/Referrals: PHYSICIAN,LEATHER TOOLER [Primary Care Provider, Internal Medicine] - 1 Week Discharge Medications: New dextrose [Glutose-15] 40 % Gel 15 g PO PRN PRN (Reason: Hypoglycemia) Qty: 112.5 0RF insulin glargine [Lantus U-100 Insulin] 100 unit/mL Solution 25 unit subcut DAILY Qty: 20 2RF atenolol 25 mg tablet 12.5 mg PO DAILY Qty: 60 2RF methimazole 10 mg tablet 10 mg PO DAILY Qty: 60 2RF Date of admission: 10/19/24 03:22 Primary Care Provider: PHYSICIAN,LEATHER TOOLER Admitting Provider: Gaudencio Gonzalez Attending physician on admission: Gaudencio Gonzalez Condition: Serious
[2024-10-23 20:49] VITALS: BP 113/56; PULSE 66; RESP 18; TEMP 36.6; O2SAT 99
--- NOTE | 2024-10-23 21:45 | PC.NURSE ---
On 10/23/24, Sydnee, RN orientee, provided care and completed Box documentation on this patient. I have reviewed Sydnee's documentation and agree with the findings.
[2024-10-24 05:58] LABS: Hematocrit 34.4 % (37.0-47.0); Hemoglobin 12.1 g/dL (12.0-15.0); Immature Granulocyte Percent A 0.4 % (0-0.5); Lymphocytes Absolute Auto 2.70 K/mm3 (0.9-3.2); Mean Corpuscular HGB Conc 35.2 g/dl (32-36); Mean Corpuscular Hemoglobin 30.2 pg (26-34); Mean Corpuscular Volume 85.8 fl (80-100); Nucleated Red Blood Cells Absolute Auto 0.000 K/mm3 (0.0-0.012); Nucleated Red Blood Cells Perc 0.0 % (0.0-0.2); Platelet Count Result 179 k/mm3 (150-375); Red Blood Count 4.01 M/mm3 (4.2-5.4); White Blood Count 5.1 K/mm3 (4.5-10.0)
[2024-10-24 06:00] VITALS: BP 100/53; PULSE 60; RESP 18; TEMP 36.6; O2SAT 99
[2024-10-24 06:40] LABS: Alanine Aminotransferase 26 U/L (6-35); Albumin Level 2.9 g/dL (3.5-5.1); Alkaline Phosphatase 65 U/L (38-126); Anion Gap 6 mmol/L (4-12); Aspartate Amino Transferase 38 U/L (14-36); Bilirubin,Total 0.4 mg/dL (0.2-1.3); Blood Urea Nitrogen 9 mg/dL (7-17); Calcium 8.8 mg/dL (8.4-10.2); Carbon Dioxide 26 mmol/L (22-30); Chloride 102 mmol/L (98-107); Estimated CRCL calculation 235 ml/min; Estimated Glomerular Filt Rate > 60; Glucose 215 mg/dL (65-110); Magnesium 1.8 mg/dL (1.6-2.3); Potassium 3.6 mmol/L (3.4-5.0); Sodium 134 mmol/L (137-145); Total Protein 5.4 g/dL (6.3-8.2)
[2024-10-24 09:18] VITALS: PULSE 78
[2024-10-24] MEDS: atenoloL 12.5 MG TABLET PO (09:18)
[2024-10-24] MEDS: POTASSIUM CHLORIDE 20 MEQ ER TABLET 40 MEQ PO (09:20)
[2024-10-24] MEDS: ENOXAPARIN 40 MG/0.4 ML SYRINGE SUB-Q (09:20)
[2024-10-24] MEDS: INSULIN GLARGINE (*BKC) 100 UNITS/ML 25 UNITS SUB-Q (09:21)
--- NOTE | 2024-10-24 10:01 | PCCDE ---
Received call from RN this am regarding DM discharge orders for this pt that was admitted with DKA; new onset diabetes. per RN, discharging physician yesterday states she has type 1. Noted low C-peptide 0.5; Anti GAD65 antibody is pending. Orders were for pen needles but insulin was vial, lacked clarity about when to take, correction dosing missing etc. A1c =11.3%, POC BG 10/22: [phone]; 10/23: [phone]; 10/24 194 Pt has been receiving 25 units Lantus OD and high dose correction dosing. RECOMMEND: INSULIN PENS (NOT VIALS) 20 UNITS LANTUS SOLOSTAR OD IN THE AM 6 UNITS HUMALOG KWIKPEN OR NOVOLOG FLEXPEN TID WM MODERATE DOSE CORRECTION SCALE TID WM 4MM () 32G PEN NEEDLES GLUCOSE TABS GLUCAGON: GVOKE OR BAQSIMI ONE TOUCH VERIO FLEX BG METER, STRIPS, LANCETS
[2024-10-24] MEDS: INSULIN ASPART (*BKC) 100 UNITS/ML SUB-Q (12:41)
--- NOTE | 2024-11-01 11:07 | PCCDE ---
11/01/24: DM educator courtesy follow up call attempt -> outgoing message stating: ... call cannot be completed.... Unable to leave message.
== END 2024-10-24 15:00 | disposition home or self-care (01) | DRG 639 ==
LOC: ANHED 10-19 03:22 → ANHICU 10-19 04:18 → ANH3MED 10-20 17:04
PROVIDERS: Emergency Medicine; Internal Medicine; Nurse Practitioner; Admitting Provider General Practice; Emergency Provider Registered Nurse; Visit Provider Student in an Organized Health Care Education/Training Program
DX: E11.10 Type 2 diabetes mellitus with ketoacidosis without coma (principal); J98.2 Interstitial emphysema; J45.909 Unspecified asthma, uncomplicated; E05.00 Thyrotoxicosis with diffuse goiter without thyrotoxic crisis or storm; Z91.148 Patient's other noncompliance with medication regimen for other reason
CPT/HCPCS: 36415; 36600; 71046; 71275; 74177; 76536; 80048; 80053; 80307; 81001; 81025; 82010; 82805; 82948; 83036; 83605; 83690; 83735; 84100; 84132; 84439; 84443; 84681; 85018; 85025; 85380; 85610; 85730; 86140; 86341; 87040; 93005; 96361; 96374; 96375; 96376; 99291; A9270; J1650; J1720; J1815; J2270; J2405; J3480; J7030; J7040; J7050; J7120; Q9967

== ENCOUNTER 2024-12-04 10:47 | Observation (INO) | payer OTHER, SELFPAY ==
[2024-12-04] VITALS (17 sets, daily range): BP systolic 112–149; BP diastolic 66–99; PULSE 90–145; RESP 17–37; TEMP 36.6–37.1; O2SAT 23–100; BMI 24.4; BMI 25.4
[2024-12-04 11:10] LABS: Hematocrit 50.0 % (37.0-47.0); Hemoglobin 17.2 g/dL (12.0-15.0); Immature Granulocyte Percent A 0.4 % (0-0.5); Lymphocytes Absolute Auto 0.44 K/mm3 (0.9-3.2); Mean Corpuscular HGB Conc 34.4 g/dl (32-36); Mean Corpuscular Hemoglobin 31.2 pg (26-34); Mean Corpuscular Volume 90.6 fl (80-100); Nucleated Red Blood Cells Absolute Auto 0.000 K/mm3 (0.0-0.012); Nucleated Red Blood Cells Perc 0.0 % (0.0-0.2); Platelet Count Result 289 k/mm3 (150-375); Red Blood Count 5.52 M/mm3 (4.2-5.4); White Blood Count 12.8 K/mm3 (4.5-10.0)
[2024-12-04 11:17] LABS: Alveolar/Arterial O2 Gradient 47.7 mmHg; Carboxyhemoglobin 0.5 % THb (0-2.0); Fractional Inspired Oxygen 21 %; HCO3 ABG 4.4 mEq/l (22.0-26.0); Methemoglobin ABG 0.4 %THb (0-1.5); Oxygen Content ABG 23.9 %vol (16.0-22.0); Oxygen Saturation ABG 97.8 % (95.0-100.0); PO2 ABG 125.8 mmHg (80.0-100.0); PO2 FiO2 Ratio Arterial Blood 5.99 %; Reduced Hemoglobin 2.0 %THb (0-5.0)
[2024-12-04 11:18] LABS: BEDSIDEPREGUCG Negative (Negative)
[2024-12-04 11:20] LABS: Liters per Minute 0.0 LPM; Modified Allen's Test Pass; PCO2 ABG 12.3 mmHg (35.0-45.0); Site Drawn RIGHT RADIAL
[2024-12-04] MEDS: SODIUM CHLORIDE 0.9% IV 1,000 ML 999 ML IV CONT ×2 (11:22→12:11)
[2024-12-04 11:29] LABS: Alanine Aminotransferase 15 U/L (6-35); Albumin Level 4.8 g/dL (3.5-5.1); Alkaline Phosphatase 170 U/L (38-126); Aspartate Amino Transferase 20 U/L (14-36); Bilirubin,Total 0.9 mg/dL (0.2-1.3); Blood Urea Nitrogen 8 mg/dL (7-17); Calcium 8.9 mg/dL (8.4-10.2); Carbon Dioxide < 5 mmol/L (22-30); Chloride 105 mmol/L (98-107); Estimated CRCL calculation 157 ml/min; Estimated Glomerular Filt Rate > 60; Glucose 320 mg/dL (65-110); Magnesium 1.9 mg/dL (1.6-2.3); Potassium 4.5 mmol/L (3.4-5.0); Sodium 136 mmol/L (137-145); Total Protein 8.4 g/dL (6.3-8.2)
[2024-12-04 11:32] LABS: Add Urine Microscopic? YES; Appearance Urine Clear (Clear); Glucose Urine UA 3+ mg/dL (Negative); Leukocyte Esterase Ur Negative LEU/UL (Negative); Nitrate Urine Negative (Negative); Non Pathogenic Casts 0-2; Specific Grav Ur 1.027 (1.001-1.035)
--- OUTSIDE RECORDS SUMMARY | 2024-12-04 11:59 | XMS_ITS | Clinical Summary ---
Author Organization [facility] Address [address] [place] [address] Care Team Providers Care Medical Imaging Technologist Name Role Phone Hill Dan MD Primary Care Provider [phone] Source Comments [facility],non-owned Affiliates and Associated Physician Practices is amultiple site organization consisting of ambulatory clinics and hospital sitesin [place], [place], [place] and [place]. This disclosure is being madepursuant to the Care Everywhere program and may not contain all information available regarding this patient. Last updated 17.[employer] Allergies No known active allergies Medications * [...] (FLONASE) 50 MCG/ACT nasal sprayIndications:Allerg ic rhinoconjunctivitis [place] 2 Sprays into each nostril once daily [...] appointment with Dr. Bagley or Sumit at [phone] 3) check thyroid levels today and again [...] months. Assessment & Plan (01/21/2015 3:05 PM PRODUCT MARKETING ANALYST): 1) check thyroid function today 2) Per Dr. Bolivar, resume Methimazole 20mg once daily, recheck thyroid function in 4-6 weeks 3) schedule appointment with ophthalmology at [phone], dr. Bagley, dr. medeiros 4) return in [address] Andrews Assessment & Plan (01/29/2014 4:40 PM PRODUCT MARKETING ANALYST): Grave's disease; improved control. 1. Methimazole (Tapazole) 5 mg at 8 am; 2:30 pm and 9 pm. 2. Atenolol 25 mg daily 3. Obtain serum TSH, total T3 and total T4 at [facility] in two weeks and fax results to Dr. Hill Muhammad at [phone] (prescription given). 3. I will contact Lisa Reed's mother by telephone (number: [phone] or father at telephone: [phone]) with the test results after I have received them and make the necessary medication dose adjustments. 4. I reviewed my provisional impressions and recommendations with Lisa Reed and her parents and they were in agreement. 5. See website: [email or web address].org for patient information handouts - Grave's disease 6. Follow up with Dr. Lopez (Ophthalmology at [facility]) as previously recommended. 7. Return appointment in 3 months. Assessment & Plan (11/27/2013 12:56 PM CDT): Grave's disease; poorly-treated. 1. Methimazole (Tapazole) 5 mg at 8 am; 2:30 pm and 9 pm. 2. Atenolol 25 mg daily 3. Obtain serum TSH, total T3 and total T4 at [facility] in two weeks and fax results to Dr. Hill Muhammad at [phone] (prescription given). 3. I will contact Lisa Reed's mother by telephone (number: [phone] or father at telephone: [phone]) with the test results after I have [...] contact Lisa Reed's father by telephone (number: [phone]) with the test results after I have received them and make the necessary medication dose adjustments. 5. Keep outpatient office appointment with Opthalmology at the [facility] next month. 6. I reviewed my provisional impressions and recommendations with mother and father and they were in agreement. Assessment & Plan (03/21/2013 11:48 AM PRODUCT MARKETING ANALYST): Lisa's serum total T3 and T4 are [...] to our offices in two weeks (fax: [phone]) 5. Return appointment in three months. Assessment [...] on file Legal Sex Female 6:31 PM PRODUCT MARKETING ANALYST Gender Identity Not on file Sexual Orientation [...] of 3 - 19+ 3-dose series) 09/10/2023 DEPRESSION SCREENING 02/23/2024 COVID-19 VACCINE (1 - 2023-2 5 season) 2024 INFLUENZA VACCINE (#1) 2024 3 (Declined) ZOSTER VACCINE (1 of 2) 2054 HIB VACCINE Aged Out No longer eligi ble based on patient's age to complete this topic MENINGOCOCCAL GROUPS A/C/Y/W VACCINE Aged Out No longer eligible b ased on patient's age to complete this topic PNEUMOCOCCAL VACCINE Aged Out No long er eligible based on patient's age to complete this topic Insurance [employer] [id number] [place] [address] CARE Care Teams Medical Imaging Technologist Relationship Specialty Start Date End Date Hill Dan MD [address] [place] [id number] PCP - General Pediatrics 06/19/13
[2024-12-04] MEDS: ONDANSETRON INJ 4 MG/2 ML VIAL IV PUSH ×2 (12:11→20:48)
[2024-12-04 12:55] LABS: Beta-Hydroxybutyrate/Acetoace. 7.44 mmol/L (0.02-0.27)
[2024-12-04 13:05] LABS: Thyroid Stimulating Hormone Reflex < 0.015 uIU/mL (0.465-4.68)
--- NOTE | 2024-12-04 13:07 | ED.GENADULT ---
HPI - General Adult General Chief complaint: Nausea/Vomiting/Diarrhea Stated complaint: diabetic, unable to get insulin x 1 mo, N/V Time Seen by Provider: 12/04/24 12:01 History of Present Illness HPI narrative: Patient is a 19-year-old female who presents ER with nausea vomiting and elevated blood sugars. Recently diagnosed as diabetic and had insulin prescribed. She is unable to get it filled due to issues with the pharmacy not transferring the order to another pharmacy where she pickle maker medication. She has been having polydipsia and polyuria. No loss of consciousness. She started having vomiting today. She feels very dehydrated. No chest pain loss of consciousness. Related Data Allergies Allergy/AdvReac Type Severity Reaction Status Date / Time No Known Allergies Allergy Verified 12/04/24 14:52 Review of Systems Review of Systems: All systems reviewed & are unremarkable except as noted in HPI and below Constitutional: Constitutional: Reports no additional constitutional complaints ENT: Reports system reviewed and no additional complaints, except as documented Cardiovascular: Cardiovascular: Reports no additional cardiovascular complaints Respiratory: Respiratory: Reports no additional respiratory complaints Gastrointestinal: Gastrointestinal: Reports no additional gastrointestinal complaints Integumentary/Breasts: Skin/Breast: Reports system reviewed and no additional complaints, except as docu PMFSH Past Medical History Medical History (Updated 12/04/24 @ 21:56 by Byron Rojas MD) Graves disease Diabetes DKA (diabetic ketoacidosis) Hyperthyroidism Social History Social History Smoking status: Never smoker Alcohol intake: never Substance use: never Lack of Transportation: YES Lack of Food: Never True Current Housing: I Have Housing Concerned About Future Housing: No Difficulty Paying Gas/Electric Bills: No Difficulty Paying for Meds: No Currently Unemployed: No Education: High School Diploma/GED Difficulty w/ Childcare or Family Care: No Spiritual care concerns: No Exam Narrative: GENERAL: Ill-appearing, well-nourished, and in no acute distress. HEAD: Normocephalic, atraumatic. EYES: PERRL and EOMI. Exophthalmos ENT: Dry mucous membranes. CHEST: Clear to auscultation. No respiratory distress. HEART: Tachycardic regular. Normal peripheral pulses. ABDOMEN: Soft, nontender, nondistended. EXTREMITIES: Normal range of motion. No edema. SKIN: Warm, dry, no rash. NEURO: Alert and oriented x3. PSYCH: Normal mood and affect. Course Course Emergency Course: Admit to the ICU. Insulin drip started. Will keep NPO. Patient aggressively hydrated. Elevated hemoglobin. Vital Signs Vital signs: Vital Signs Temperature 98 F 12/04/24 10:53 Pulse Rate 145 H 12/04/24 10:53 Respiratory Rate 26 H 12/04/24 10:53 Blood Pressure 149/99 H 12/04/24 10:53 Pulse Oximetry 100 12/04/24 10:53 Oxygen Delivery Room Air 12/04/24 10:53 Temperature 98.7 F 12/04/24 18:00 Pulse Rate 93 12/04/24 19:28 Respiratory Rate 20 12/04/24 19:28 Blood Pressure 128/70 12/04/24 19:00 Pulse Oximetry 100 12/04/24 19:28 Oxygen Delivery Room Air 12/04/24 20:00 Medical Decision Making Vital Signs Vital Signs: Vital Signs Temperature 98 F 12/04/24 10:53 Pulse Rate 145 H 12/04/24 10:53 Respiratory Rate 26 H 12/04/24 10:53 Blood Pressure 149/99 H 12/04/24 10:53 Pulse Oximetry 100 12/04/24 10:53 Oxygen Delivery Room Air 12/04/24 10:53 Temperature 98.7 F 12/04/24 18:00 Pulse Rate 93 12/04/24 19:28 Respiratory Rate 20 12/04/24 19:28 Blood Pressure 128/70 12/04/24 19:00 Pulse Oximetry 100 12/04/24 19:28 Oxygen Delivery Room Air 12/04/24 20:00 Lab Data 12/04/24 11:03 12/04/24 18:37 Labs: Lab Results 12/04/24 12/04/24 12/04/24 Range/Units 10:52 11:01 11:03 WBC 12.8 H (4.5-10.0) K/mm3 RBC 5.52 H (4.2-5.4) M/mm3 Hgb 17.2 H D (12.0-15.0) g/dL Hct 50.0 H (37.0-47.0) % MCV 90.6 (80-100) fl MCH 31.2 (26-34) pg MCHC 34.4 (32-36) g/dl RDW 13.3 (11.5-14.5) % Plt Count 289 D (150-375) k/mm3 MPV 10.4 (7.4-10.4) fl Immature Gran % (Auto) 0.4 (0-0.5) % Neut % (Auto) 92.5 H (45.5-73.1) % Lymph % (Auto) 3.4 L (18.3-44.2) % [place] % (Auto) 3.2 (2.6-8.5) % Eos % (Auto) 0.1 (0-4.4) % Baso % (Auto) 0.4 (0.2-1.2) % Lymph # (Auto) 0.44 L (0.9-3.2) K/mm3 [place] # (Auto) 0.4 (0.1-0.6) K/mm3 Eos # (Auto) 0.0 (0-0.3) K/mm3 Baso # (Auto) 0.1 (0.0-0.1) K/mm3 Abs Immat Gran (auto) 0.05 H (0.00-0.031) K/mm3 Absolute Neuts (auto) 11.8 H (1.3-6.7) K/mm3 Absolute Nucleated RBC 0.000 (0.0-0.012) K/mm3 Nucleated RBC % 0.0 (0.0-0.2) % Methemoglobin (0-1.5) %THb Sodium 136 L (137-145) mmol/L Potassium 4.5 (3.4-5.0) mmol/L Chloride 105 (98-107) mmol/L Carbon Dioxide < 5 L (22-30) mmol/L Anion Gap (4-12) mmol/L BUN 8 (7-17) mg/dL Creatinine 0.46 L (0.7-1.0) mg/dL Estim Creat Clear Calc 157 ml/min Estimated GFR > 60 (59 - ) Glucose 320 H (65-110) mg/dL POC Capillary Glucose 300 H (65-105) mg/dl Hemoglobin A1c 8.7 H (<5.7) % Lactic Acid (0.7-2.0) mmol/L Calcium 8.9 (8.4-10.2) mg/dL Phosphorus 4.3 (2.5-4.5) mg/dL Magnesium 1.9 (1.6-2.3) mg/dL Total Bilirubin 0.9 (0.2-1.3) mg/dL AST 20 (14-36) U/L ALT 15 (6-35) U/L Alkaline Phosphatase 170 H (38-126) U/L Total Protein 8.4 H (6.3-8.2) g/dL Albumin 4.8 (3.5-5.1) g/dL Beta-Hydroxybutyrate/Acetoacetate 7.44 H (0.02-0.27) mmol/L TSH (Reflex) < 0.015 L (0.465-4.68) uIU/mL Free T4 2.01 (0.78-2.19) ng/dL Total T3 0.96 (0.82-1.58) NG/ML Urine Color (Yellow) Urine Appearance (Clear) Urine pH (5.0-9.0) Ur Specific [place] (1.001-1.035) Urine Protein (Negative) mg/dL Urine Glucose (UA) (Negative) mg/dL Urine Ketones (Negative) mg/dL Ur Blood (Man) (Negative) Urine Nitrate (Negative) Urine Bilirubin (Negative) Urine Urobilinogen (<2.0) mg/dL Leukocyte Esterase Rfl (Negative) XANDER/UL Urine RBC (0-2) /hpf Urine WBC (0-3) /hpf Ur Squamous Epith Cells (Few) /hpf Urine Bacteria /hpf Urine Casts POC Urine HCG, Qual (Negative) 12/04/24 12/04/24 12/04/24 Range/Units 11:04 11:12 11:15 WBC (4.5-10.0) K/mm3 RBC (4.2-5.4) M/mm3 Hgb (12.0-15.0) g/dL Hct (37.0-47.0) % MCV (80-100) fl MCH (26-34) pg MCHC (32-36) g/dl RDW (11.5-14.5) % Plt Count (150-375) k/mm3 MPV (7.4-10.4) fl Immature Gran % (Auto) (0-0.5) % Neut % (Auto) (45.5-73.1) % Lymph % (Auto) (18.3-44.2) % [place] % (Auto) (2.6-8.5) % Eos % (Auto) (0-4.4) % Baso % (Auto) (0.2-1.2) % Lymph # (Auto) (0.9-3.2) K/mm3 [place] # (Auto) (0.1-0.6) K/mm3 Eos # (Auto) (0-0.3) K/mm3 Baso # (Auto) (0.0-0.1) K/mm3 Abs Immat Gran (auto) (0.00-0.031) K/mm3 Absolute Neuts (auto) (1.3-6.7) K/mm3 Absolute Nucleated RBC (0.0-0.012) K/mm3 Nucleated RBC % (0.0-0.2) % Methemoglobin 0.4 (0-1.5) %THb Sodium (137-145) mmol/L Potassium (3.4-5.0) mmol/L Chloride (98-107) mmol/L Carbon Dioxide (22-30) mmol/L Anion Gap (4-12) mmol/L BUN (7-17) mg/dL Creatinine (0.7-1.0) mg/dL Estim Creat Clear Calc ml/min Estimated GFR (59 - ) Glucose (65-110) mg/dL POC Capillary Glucose (65-105) mg/dl Hemoglobin A1c (<5.7) % Lactic Acid 1.3 (0.7-2.0) mmol/L Calcium (8.4-10.2) mg/dL Phosphorus (2.5-4.5) mg/dL Magnesium (1.6-2.3) mg/dL Total Bilirubin (0.2-1.3) mg/dL AST (14-36) U/L ALT (6-35) U/L Alkaline Phosphatase (38-126) U/L Total Protein (6.3-8.2) g/dL Albumin (3.5-5.1) g/dL Beta-Hydroxybutyrate/Acetoacetate (0.02-0.27) mmol/L TSH (Reflex) (0.465-4.68) uIU/mL Free T4 (0.78-2.19) ng/dL Total T3 (0.82-1.58) NG/ML Urine Color (Yellow) Urine Appearance (Clear) Urine pH (5.0-9.0) Ur Specific [place] (1.001-1.035) Urine Protein (Negative) mg/dL Urine Glucose (UA) (Negative) mg/dL Urine Ketones (Negative) mg/dL Ur Blood (Man) (Negative) Urine Nitrate (Negative) Urine Bilirubin (Negative) Urine Urobilinogen (<2.0) mg/dL Leukocyte Esterase Rfl (Negative) XANDER/UL Urine RBC (0-2) /hpf Urine WBC (0-3) /hpf Ur Squamous Epith Cells (Few) /hpf Urine Bacteria /hpf Urine Casts POC Urine HCG, Qual Negative (Negative) 12/04/24 12/04/24 Range/Units 11:20 13:18 WBC (4.5-10.0) K/mm3 RBC (4.2-5.4) M/mm3 Hgb (12.0-15.0) g/dL Hct (37.0-47.0) % MCV (80-100) fl MCH (26-34) pg MCHC (32-36) g/dl RDW (11.5-14.5) % Plt Count (150-375) k/mm3 MPV (7.4-10.4) fl Immature Gran % (Auto) (0-0.5) % Neut % (Auto) (45.5-73.1) % Lymph % (Auto) (18.3-44.2) % [place] % (Auto) (2.6-8.5) % Eos % (Auto) (0-4.4) % Baso % (Auto) (0.2-1.2) % Lymph # (Auto) (0.9-3.2) K/mm3 [place] # (Auto) (0.1-0.6) K/mm3 Eos # (Auto) (0-0.3) K/mm3 Baso # (Auto) (0.0-0.1) K/mm3 Abs Immat Gran (auto) (0.00-0.031) K/mm3 Absolute Neuts (auto) (1.3-6.7) K/mm3 Absolute Nucleated RBC (0.0-0.012) K/mm3 Nucleated RBC % (0.0-0.2) % Methemoglobin (0-1.5) %THb Sodium (137-145) mmol/L Potassium (3.4-5.0) mmol/L Chloride (98-107) mmol/L Carbon Dioxide (22-30) mmol/L Anion Gap (4-12) mmol/L BUN (7-17) mg/dL Creatinine (0.7-1.0) mg/dL Estim Creat Clear Calc ml/min Estimated GFR (59 - ) Glucose (65-110) mg/dL POC Capillary Glucose 236 H (65-105) mg/dl Hemoglobin A1c (<5.7) % Lactic Acid (0.7-2.0) mmol/L Calcium (8.4-10.2) mg/dL Phosphorus (2.5-4.5) mg/dL Magnesium (1.6-2.3) mg/dL Total Bilirubin (0.2-1.3) mg/dL AST (14-36) U/L ALT (6-35) U/L Alkaline Phosphatase (38-126) U/L Total Protein (6.3-8.2) g/dL Albumin (3.5-5.1) g/dL Beta-Hydroxybutyrate/Acetoacetate (0.02-0.27) mmol/L TSH (Reflex) (0.465-4.68) uIU/mL Free T4 (0.78-2.19) ng/dL Total T3 (0.82-1.58) NG/ML Urine Color Yellow (Yellow) Urine Appearance Clear (Clear) Urine pH 5.0 (5.0-9.0) Ur Specific [place] 1.027 (1.001-1.035) Urine Protein 2+ H (Negative) mg/dL Urine Glucose (UA) 3+ H (Negative) mg/dL Urine Ketones 4+ H (Negative) mg/dL Ur Blood (Man) Trace (Negative) Urine Nitrate Negative (Negative) Urine Bilirubin Negative (Negative) Urine Urobilinogen 0.2 (<2.0) mg/dL Leukocyte Esterase Rfl Negative (Negative) XANDER/UL Urine RBC 0-2 (0-2) /hpf Urine WBC 0-5 (0-3) /hpf Ur Squamous Epith Cells Occasional (Few) /hpf Urine Bacteria None seen /hpf Urine Casts 0-2 POC Urine HCG, Qual (Negative) ABG Data ABG results: 12/04/24 11:15 Puncture Site Right radial ABG pH 7.176 L* ABG pCO2 12.3 L* ABG pO2 125.8 H ABG PO2/FiO2 Ratio 5.99 ABG HCO3 4.4 L ABG O2 Saturation 97.8 ABG O2 Content 23.9 H ABG Base Excess -20.9 A-a Gradient 47.7 Oxyhemoglobin 97.1 Carboxyhemoglobin 0.5 Reduced Hemoglobin 2.0 Total Hemoglobin 17.4 O2 Delivery Device Room air O2 Liters/Min 0.0 FiO2 21 Critical Care Time Critical Care Time Critical Care Time: Yes Total Critical Care Time: 35 Discharge Plan Discharge Clinical Impression: Dehydration DKA (diabetic ketoacidosis) Qualifiers: Diabetes mellitus type: type 2 Diabetes mellitus complication detail: without coma Qualified Code(s): E11.10 - Type 2 diabetes mellitus with ketoacidosis without coma Patient Disposition: Still a Patient Condition: Stable
--- NOTE | 2024-12-04 13:28 | PC.NURSE ---
Patient ambulated to restroom with steady gate
--- NOTE | 2024-12-04 13:39 | PM.IMHP ---
H&P: HPI History of Present Illness Date/Time: 12/04/24 13:39 Chief Complaint: Nausea/ vomiting/ diarrhea Narrative: 19-year-old female with a past medical history of Graves disease and recently diagnosed type 1 diabetes presented to the emergency department 12/04/2024 with complaints of nausea vomiting, diarrhea and has been unable to get her insulin since her discharge on 10/24/24. Patient further endorses polydipsia and polyuria. All symptoms began on 12/03. Denies fever, chills, chest pain. Reports no loss of consciousness. Insulin was prescribed at discharge on 10/24 but was sent to the wrong pharmacy. She states the pharmacy was unable to transfer the prescriptions to a closer pharmacy. She lives with her mother and neither have access to a car. Patient is accompanied by her sister today. Of note, anti-CODY 65 antibody was >25,000. Thyroid ultrasound on 10/19/24 reads heterogeneous hypoechoic thyroid with diffuse increased vascular flow consistent with Graves disease. 9 mm TI RADS 4 right thyroid nodule which remains below size criteria for either biopsy or follow-up. ED course: Vital signs on arrival are 149/99, HR 145, respirations 26, temp 98? F, 100% on room air CBC consistent with dehydration with hemoglobin 17.2. CO2 < 5, glucose 320, alk-phos 170, anion gap unable to be measured. Beta hydroxybutyrate 7.44 TSH 0.015, free T4 2.01, total T3 0.96 ABG: PH 7.17 pCO2 12.3 PO2 125.8 HC03 4.4 UA with 2+ protein, 3+ glucose, 4+ urine ketones 2 L bolus given in ED. Insulin gtt initiated Review of Systems Review of Systems: All systems reviewed & are unremarkable except as noted in HPI and below PMFSH Past Medical History Medical History (Updated 12/04/24 @ 18:13 by Lennie Sands APRN) Graves disease Diabetes DKA (diabetic ketoacidosis) Hyperthyroidism Social History Social History Smoking status: Never smoker Alcohol intake: never Substance use: never Lack of Transportation: YES Lack of Food: Never True Current Housing: I Have Housing Concerned About Future Housing: No Difficulty Paying Gas/Electric Bills: No Difficulty Paying for Meds: No Currently Unemployed: No Education: High School Diploma/GED Difficulty w/ Childcare or Family Care: No Spiritual care concerns: No Meds Home Medications and Allergies Home Medications ?Medication ?Instructions ?Recorded ?Confirmed ?Type atenolol 25 mg tablet 12.5 mg (1/2 x 25 mg) PO DAILY #60 10/23/24 12/04/24 Rx tabs methimazole 10 mg tablet 10 mg PO DAILY #60 tabs 10/23/24 12/04/24 Rx blood sugar diagnostic (OneTouch #1 [facility] 10/24/24 12/04/24 Rx Verio test strips) blood-glucose meter (OneTouch #1 [facility] 10/24/24 12/04/24 Rx Verio Flex Meter) insulin glargine 100 unit/mL (3 20 unit (0.2 mL) subcut QAM #15 mL 10/24/24 12/04/24 Rx mL) subcutaneous pen (Lantus Solostar U-100 Insulin) insulin lispro 100 unit/mL 1 sliding scale dose subcut 10/24/24 12/04/24 Rx subcutaneous pen (Humalog KwikPen USEASDIRECTD #3 mL (U-100) Insulin) insulin lispro 200 unit/mL (3 mL) 6 unit (0.03 mL) subcut TIDWMEAL 10/24/24 12/04/24 Rx subcutaneous pen (Humalog KwikPen #6 mL U-200 Insulin) lancets 30 gauge (OneTouch Delica #1 [facility] 10/24/24 12/04/24 Rx Plus Lancet) pen needle, diabetic 32 gauge x #1 [facility] 10/24/24 12/04/24 Rx 5/32 Allergies Allergy/AdvReac Type Severity Reaction Status Date / Time No Known Allergies Allergy Verified 12/04/24 14:52 Vital Signs Vital Signs - 24 hr 12/04/24 10:53 12/04/24 11:12 12/04/24 11:20 Temperature 98 F Pulse Rate 145 H 126 H 126 H Respiratory Rate 26 H 37 H 24 H Blood Pressure 149/99 H 141/98 H 133/90 Pulse Oximetry 100 99 98 Oxygen Delivery Room Air Room Air 12/04/24 12:11 12/04/24 13:01 Temperature Pulse Rate 116 H 111 H Respiratory Rate 33 H 30 H Blood Pressure 139/90 124/76 Pulse Oximetry 99 100 Oxygen Delivery Exam Narrative: GENERAL: No acute distress. HEAD: Normocephalic, atraumatic. EYES: PERRLA. Conjunctivae clear. exophthalmos NOSE: Normal no drainage. THROAT/MOUTH: Pharynx clear, no exudate. Mucous membranes dry NECK: Trachea midline. No adenopathy, no masses. RESPIRATORY: Airway patent, tachypnea. CTA. CARDIOVASCULAR: Tachycardic in the 120s. BREASTS: Defer GASTROINTESTINAL: Abdomen is soft and nontender. No organomegaly. Bowel sounds normal in all quadrants. GENITOURINARY: Defer MUSCULOSKELETAL: Moves all extremities. No gross deformities. No calf tenderness. SKIN: Warm, dry, normal color. NEURO: A&O X4. Speech clear PSYCHIATRIC: Normal interaction H&P: Results Labs Labs: Short CBC 12/04/24 Range/Units 11:03 WBC 12.8 H (4.5-10.0) K/mm3 Hgb 17.2 H D (12.0-15.0) g/dL Hct 50.0 H (37.0-47.0) % Plt Count 289 D (150-375) k/mm3 BMP 12/04/24 11:03 Sodium 136 L Potassium 4.5 Chloride 105 Carbon Dioxide < 5 L BUN 8 Creatinine 0.46 L Glucose 320 H Calcium 8.9 Liver Function 12/04/24 Range/Units 11:03 Total Bilirubin 0.9 (0.2-1.3) mg/dL AST 20 (14-36) U/L ALT 15 (6-35) U/L Alkaline Phosphatase 170 H (38-126) U/L Albumin 4.8 (3.5-5.1) g/dL Urine 12/04/24 Range/Units 11:20 Urine Color Yellow (Yellow) Urine Appearance Clear (Clear) Urine pH 5.0 (5.0-9.0) Ur Specific [place] 1.027 (1.001-1.035) Urine Protein 2+ H (Negative) mg/dL Urine Glucose (UA) 3+ H (Negative) mg/dL Assessment and Plan Assessment and plan (1) DKA (diabetic ketoacidosis): Qualifiers: Diabetes mellitus complication detail: without coma Diabetes mellitus type: type 2 Qualified Code(s): E11.10 - Type 2 diabetes mellitus with ketoacidosis without coma Code(s): E11.10 - Type 2 diabetes mellitus with ketoacidosis without coma Status: Acute Assessment and Plan: Recent diagnosis of type 1 diabetes. Has not had any home insulin since discharge on 10/24. The patient presented on 12/04 with nausea, vomiting, diarrhea as well as polydipsia and polyuria. Labs consistent with DKA. Initial A1c 11.3. Today 8.7 - history of type 1 diabetes - initial glucose 320 - labs: WBC 12.8 ABG, initial: PH 7.17 pCO2 12.3 PO2 125.8 HC03 4.4 BMP: Na 136, K 4.5, chloride 105, CO2 <5, BUN 8, creatinine 0.46, glucose 320, calcium 8.9 phosphorus 2.6, magnesium 1.7 - trend BMP Q4H, repeat Mag and Phos - DKA protocol initiated - IV fluids: given NS 2 L in ED. Now receiving 1 L LR bolus due continued continued tachycardia in the 120s - insulin gtt currently running at 7.9 u/hr - NPO - home medications: Lantus 20 units daily, Humalog 6 units with meals plus sliding scale-however, never picked up the prescriptions - mark up designer consulted - certified adaptive physical educator consulted -compliance professional consulted -care coordination consult to assist with setting up PCP appointment and transportation resources (2) Graves disease: Code(s): E05.00 - Thyrotoxicosis with diffuse goiter without thyrotoxic crisis or storm Status: Chronic Assessment and Plan: Thyroid ultrasound on 10/19/24 reads heterogeneous hypoechoic thyroid with diffuse increased vascular flow consistent with Graves disease. 9 mm TI RADS 4 right thyroid nodule which remains below size criteria for either biopsy or follow-up. Exophthalmos present -TSH 0.015, free T4 2.01, total T3 0.96 -continue Tapazole 10 mg daily -will need to follow-up outpatient with Endocrinology Plan Diet: NPO GI prophylaxis: NA DVT prophylaxis: SCDs lines/drains: PIV Fluids: 2 L is given in ED. Code status: Full Quality VTE Prophylaxis VTE prophylaxis: mechanical ordered Critical Care Time: I personally spent 40 minutes of direct patient care including (but not limited to) the physical examination, decision-making, bedside evaluation, review of medical records, review of labs and imaging, discussion with nursing staff and other providers for collaborative, critical care management of this patient. Hospitalist [facility] Advance Care Plan I have confirmed that the patient's Advanced Care Plan is present, code status is documented, or surrogate decision maker is listed in patient medical record.: Yes Medication Reconciliation I have utilized all available resources to obtain, update and review the patients current medications (includes all prescriptions, OTC, herbals, cannabis, and nutritional supplements).: Yes
--- OUTSIDE RECORDS SUMMARY | 2024-12-04 13:39 | XMS_ITS | Clinical Summary ---
Author Organization [facility] Address [address] [place] [address] Care Team Providers Care Welcome Wagon Host/Hostess Name Role Phone Hill Dan MD Primary Care Provider [phone] Source Comments [facility]non-owned Affiliates and Associated Physician Practices is amultiple site organization consisting of ambulatory clinics and hospital sitesin [place], [place], [place] and [place]. This disclosure is being madepursuant to the Care Everywhere program and may not contain all information available regarding this patient. Last updated 17.[employer] Allergies No known active allergies Medications * [...] (FLONASE) 50 MCG/ACT nasal sprayIndications:Allerg ic rhinoconjunctivitis [place] 2 Sprays into each nostril once daily [...] appointment with Dr. Bagley or Sumit at [phone] 3) check thyroid levels today and again [...] months. Assessment & Plan (01/21/2015 3:05 PM INSTRUCTIONAL SERVICES SPECIALIST): 1) check thyroid function today 2) Per Dr. Bolivar, resume Methimazole 20mg once daily, recheck thyroid function in 4-6 weeks 3) schedule appointment with ophthalmology at [phone], dr. Bagley, dr. medeiros 4) return in [address] Andrews Assessment & Plan (01/29/2014 4:40 PM INSTRUCTIONAL SERVICES SPECIALIST): Grave's disease; improved control. 1. Methimazole (Tapazole) 5 mg at 8 am; 2:30 pm and 9 pm. 2. Atenolol 25 mg daily 3. Obtain serum TSH, total T3 and total T4 at [facility] in two weeks and fax results to Dr. Hill Muhammad at [phone] (prescription given). 3. I will contact Lisa Reed's mother by telephone (number: [phone] or father at telephone: [phone]) with the test results after I have received them and make the necessary medication dose adjustments. 4. I reviewed my provisional impressions and recommendations with Lisa Reed and her parents and they were in agreement. 5. See website: [email or web address].org for patient information handouts - Grave's disease 6. Follow up with Dr. Lopez (Ophthalmology at [facility]) as previously recommended. 7. Return appointment in 3 months. Assessment & Plan (11/27/2013 12:56 PM CDT): Grave's disease; poorly-treated. 1. Methimazole (Tapazole) 5 mg at 8 am; 2:30 pm and 9 pm. 2. Atenolol 25 mg daily 3. Obtain serum TSH, total T3 and total T4 at [facility] in two weeks and fax results to Dr. Hill Muhammad at [phone] (prescription given). 3. I will contact Lisa Reed's mother by telephone (number: [phone] or father at telephone: [phone]) with the test results after I have [...] contact Lisa Reed's father by telephone (number: [phone]) with the test results after I have received them and make the necessary medication dose adjustments. 5. Keep outpatient office appointment with Opthalmology at the [facility] next month. 6. I reviewed my provisional impressions and recommendations with mother and father and they were in agreement. Assessment & Plan (03/21/2013 11:48 AM INSTRUCTIONAL SERVICES SPECIALIST): Lisa's serum total T3 and T4 are [...] to our offices in two weeks (fax: [phone]) 5. Return appointment in three months. Assessment [...] on file Legal Sex Female 6:31 PM INSTRUCTIONAL SERVICES SPECIALIST Gender Identity Not on file Sexual Orientation [...] to complete this topic Insurance [employer] [id number] [place] [address] CARE Care Teams Welcome Wagon Host/Hostess Relationship Specialty Start Date End Date Hill Dan MD [address] [place] [id number] PCP - General Pediatrics 06/19/13
[2024-12-04 13:40] LABS: Free T4 Free Thyroxine Reflex 2.01 ng/dL (0.78-2.19)
[2024-12-04] MEDS: INSULIN HUMAN REGULAR (*BKC) 100 UNITS in SODIUM CHLORIDE 0.9% IV 99 ML 7.4 UNITS IV CONT (13:53)
--- NOTE | 2024-12-04 14:29 | WPDCNINT ---
Assessment and Plan Assessment and plan (1) DKA (diabetic ketoacidosis): Qualifiers: Diabetes mellitus complication detail: without coma Diabetes mellitus type: type 2 Qualified Code(s): E11.10 - Type 2 diabetes mellitus with ketoacidosis without coma Code(s): E11.10 - Type 2 diabetes mellitus with ketoacidosis without coma Status: Acute Assessment and Plan: Patient presented with nausea, vomiting, polyuria and polydipsia. She also noted elevated blood sugars -in the ED patient was found to be tachycardic, very low CO2 on her BMP, anion gap was not calculable. -patient diagnosed with DKA, 2 L IV fluids given in the ED and started on insulin infusion -patient currently tachycardic, will given initial IV fluid bolus -continue insulin infusion per DKA protocol along with the maintenance IV fluids that go with it -thermal cutter helper and dietitian to evaluate -will have care coordination assist patient with finding a new primary care doctor -once anion gap is closed and CO2 has improved , will transition to long-acting insulin and sliding scale insulin. (2) Newly diagnosed diabetes: Code(s): E11.9 - Type 2 diabetes mellitus without complications Status: Acute Assessment and Plan: Patient is newly diagnosed for diabetes type 1 in October of 2024, has not been able to fill her sliding scale insulin and Lantus -hemoglobin A1c is pending -10/21/2023: Hemoglobin A1c was 10.8 (3) Hyperthyroidism: Code(s): E05.90 - Thyrotoxicosis, unspecified without thyrotoxic crisis or storm Status: Acute Assessment and Plan: Patient with history of hypothyroidism and exophthalmos on examination -will restart her atenolol and methimazole -TSH level <0.015, -assess for 8 free T4 level 2.01, -total T3 level 0.96 Plan DVT prophylaxis: SCDs Stress ulcer prophylaxis: Not indicated Nutrition: Ice chips only Code Status: Full code Critical Care Time Spent: 44 minutes Due to a high probability of clinically significant, life threatening deterioration, the patient required my highest level of preparedness to intervene emergently and I personally spent this critical care time directly and personally managing the patient. This critical care time included obtaining a history; examining the patient; pulse oximetry; ordering and review of studies; arranging urgent treatment with development of a management plan; evaluation of patient's response to treatment; frequent reassessment; and discussions with other providers. It was exclusive of separately billable procedures and treating other patients and teaching time. Please see Assessment and Plan section and the rest of the note for further information on patient assessment and treatment This dictation may have been done utilizing a voice recognition system. Attempts have been made to correct errors. However, there may be uncorrected grammatical, spelling, and recognitions errors present. Material Crew Supervisor Consult Note Consult date: 12/04/24 Reason for consult: Polyuria, polydipsia, nausea, vomiting, DKA, metabolic acidosis HPI: Lisa Ray is a 19 year old female with significant past medical history recently diagnosed diabetes type 1, hypothyroidism presented the ED on 12/04/2024 with complains of polyuria or polydipsia, nausea and vomiting along with hyperglycemia. She has been recently diagnosed with diabetes and insulin had been prescribed which she was unable to fill due to issues with the pharmacy not transfer in the order to another pharmacy for pickup. Patient was found to be tachycardic in the ER, was given 2 L IV fluid bolus started on insulin infusion without a bolus and transferred to the ICU for further management. Patient seen examined upon arrival to the ICU, is pleasant female currently in no acute distress except for tachycardic. States she is thirsty, denies any nausea, vomiting, abdominal pain, chest pain, shortness a breath at this time. States she is unable to fill her prescriptions, takes only atenolol. Has not even taken and is on methimazole. Denies any alcohol, tobacco illicit drug use, works at [employer]. Review of Systems Review of Systems: All systems reviewed & are unremarkable except as noted in HPI and below PMFSH Past Medical History Medical History (Updated 12/04/24 @ 14:20 by Lennie Sands APRN) Diabetes DKA (diabetic ketoacidosis) Hyperthyroidism Social History Social History Smoking status: Never smoker Alcohol intake: never Substance use: never Lack of Transportation: No Lack of Food: Never True Current Housing: I Have Housing Concerned About Future Housing: No Difficulty Paying Gas/Electric Bills: No Difficulty Paying for Meds: No Currently Unemployed: No Education: High School Diploma/GED Difficulty w/ Childcare or Family Care: No Spiritual care concerns: No Meds Home Medications and Allergies Home Medications ?Medication ?Instructions ?Recorded ?Confirmed ?Type atenolol 25 mg tablet 12.5 mg (1/2 x 25 mg) PO DAILY #60 10/23/24 12/04/24 Rx tabs methimazole 10 mg tablet 10 mg PO DAILY #60 tabs 10/23/24 12/04/24 Rx blood sugar diagnostic (OneTouch #1 [facility] 10/24/24 12/04/24 Rx Verio test strips) blood-glucose meter (OneTouch #1 [facility] 10/24/24 12/04/24 Rx Verio Flex Meter) insulin glargine 100 unit/mL (3 20 unit (0.2 mL) subcut QAM #15 mL 10/24/24 12/04/24 Rx mL) subcutaneous pen (Lantus Solostar U-100 Insulin) insulin lispro 100 unit/mL 1 sliding scale dose subcut 10/24/24 12/04/24 Rx subcutaneous pen (Humalog KwikPen USEASDIRECTD #3 mL (U-100) Insulin) insulin lispro 200 unit/mL (3 mL) 6 unit (0.03 mL) subcut TIDWMEAL 10/24/24 12/04/24 Rx subcutaneous pen (Humalog KwikPen #6 mL U-200 Insulin) lancets 30 gauge (OneTouch Delica #1 [facility] 10/24/24 12/04/24 Rx Plus Lancet) pen needle, diabetic 32 gauge x #1 [facility] 10/24/24 12/04/24 Rx 5/32 Allergies Allergy/AdvReac Type Severity Reaction Status Date / Time No Known Allergies Allergy Verified 12/04/24 14:52 Vital Signs Vital Signs - 24 hr 12/04/24 10:53 12/04/24 11:12 12/04/24 11:20 Temperature 98 F Pulse Rate 145 H 126 H 126 H Respiratory Rate 26 H 37 H 24 H Blood Pressure 149/99 H 141/98 H 133/90 Pulse Oximetry 100 99 98 Oxygen Delivery Room Air Room Air 12/04/24 12:11 12/04/24 13:01 12/04/24 13:57 Temperature Pulse Rate 116 H 111 H 113 H Respiratory Rate 33 H 30 H 28 H Blood Pressure 139/90 124/76 133/75 Pulse Oximetry 99 100 100 Oxygen Delivery Exam Narrative: General: Pleasant young female, currently in no acute distress HEENT:? Pupils equal and reactive, exophthalmos noted, sclera is clear, dry oral mucosa Neck:? Supple Respiratory:? Clear to auscultation bilaterally, no wheezing, adequate air entry Cardiac:? S1-S2 is normal, tachycardia Abdomen:? Soft, nontender, nondistended, normoactive bowel sounds Extremities:? No edema, no clubbing or cyanosis. Neuro:? Patient is awake, alert, oriented x3, nonfocal, answers to questions appropriately and follows simple commands in all extremities Skin:? Skin turgor is decreased, no skin lesions noted Psych:? Normal mentation and affect Results Labs 12/04/24 11:03 12/04/24 11:03 Labs: Short CBC 12/04/24 Range/Units 11:03 WBC 12.8 H (4.5-10.0) K/mm3 Hgb 17.2 H D (12.0-15.0) g/dL Hct 50.0 H (37.0-47.0) % Plt Count 289 D (150-375) k/mm3 BMP 12/04/24 11:03 Sodium 136 L Potassium 4.5 Chloride 105 Carbon Dioxide < 5 L BUN 8 Creatinine 0.46 L Glucose 320 H Calcium 8.9 Liver Function 12/04/24 Range/Units 11:03 Total Bilirubin 0.9 (0.2-1.3) mg/dL AST 20 (14-36) U/L ALT 15 (6-35) U/L Alkaline Phosphatase 170 H (38-126) U/L Albumin 4.8 (3.5-5.1) g/dL Urine 12/04/24 Range/Units 11:20 Urine Color Yellow (Yellow) Urine Appearance Clear (Clear) Urine pH 5.0 (5.0-9.0) Ur Specific [place] 1.027 (1.001-1.035) Urine Protein 2+ H (Negative) mg/dL Urine Glucose (UA) 3+ H (Negative) mg/dL Quality VTE Prophylaxis VTE prophylaxis: mechanical ordered Hospitalist MIPS Advance Care Plan I have confirmed that the patient's Advanced Care Plan is present, code status is documented, or surrogate decision maker is listed in patient medical record.: Yes Medication Reconciliation I have utilized all available resources to obtain, update and review the patients current medications (includes all prescriptions, OTC, herbals, cannabis, and nutritional supplements).: Yes
[2024-12-04] MEDS: SODIUM CHLORIDE 0.9% IV 1,000 ML 150 ML IV CONT ×2 (14:37→20:16)
[2024-12-04 14:40] LABS: Total Triiodothyronine (T3) 0.96 NG/ML (0.82-1.58)
--- NOTE | 2024-12-04 14:48 | ADMGEN ---
This patient, Lisa Ray, was admitted to Intensive Care Unit-3. Patient/family oriented to hospital policies and general routines including ID bracelet, bed and alarms, visiting hours, pain management, procedures, bathroom and other care routines, personal items, smoking policy, room service/diet, and visiting hours. Information on how to activate the Rapid Response Team has been discussed. Patient/Family are encouraged to report perceived risks to care and to ask questions if they do not understand what they are told or what they should do.
[2024-12-04] MEDS: LACTATED RINGERS 1,000 ML 999 ML IV CONT ×2 (14:57→20:07)
[2024-12-04 14:58] LABS: Hemoglobin A1C 8.7 % (<5.7)
[2024-12-04 15:02] LABS: MRSA (PCR) NOT DETECTED (NOT DETECTE)
[2024-12-04] MEDS: KCL 20 MEQ/D5/0.45% SOD CHL 1,000 ML 150 ML IV CONT (15:03)
[2024-12-04 15:48] LABS: Blood Urea Nitrogen 6 mg/dL (7-17); Calcium 7.9 mg/dL (8.4-10.2); Carbon Dioxide < 5 mmol/L (22-30); Chloride 112 mmol/L (98-107); Estimated CRCL calculation 194 ml/min; Estimated Glomerular Filt Rate > 60; Glucose 186 mg/dL (65-110); Magnesium 1.7 mg/dL (1.6-2.3); Potassium 3.8 mmol/L (3.4-5.0); Sodium 137 mmol/L (137-145)
[2024-12-04 18:58] LABS: Blood Urea Nitrogen 5 mg/dL (7-17); Calcium 8.4 mg/dL (8.4-10.2); Carbon Dioxide < 5 mmol/L (22-30); Chloride 109 mmol/L (98-107); Estimated CRCL calculation 194 ml/min; Estimated Glomerular Filt Rate > 60; Glucose 226 mg/dL (65-110); Potassium 4.0 mmol/L (3.4-5.0); Sodium 135 mmol/L (137-145)
[2024-12-04 23:35] LABS: Anion Gap 16 mmol/L (4-12); Blood Urea Nitrogen 4 mg/dL (7-17); Calcium 8.3 mg/dL (8.4-10.2); Carbon Dioxide 7 mmol/L (22-30); Chloride 110 mmol/L (98-107); Estimated CRCL calculation 226 ml/min; Estimated Glomerular Filt Rate > 60; Glucose 239 mg/dL (65-110); Potassium 3.5 mmol/L (3.4-5.0); Sodium 133 mmol/L (137-145)
[2024-12-05] VITALS (18 sets, daily range): BP systolic 97–113; BP diastolic 59–70; PULSE 65–90; RESP 15–20; TEMP 36.6–36.9; O2SAT 98–100
[2024-12-05] MEDS: KCL 20 MEQ/D5/0.45% SOD CHL 1,000 ML 150 ML IV CONT ×2 (00:15→07:09)
[2024-12-05 02:24] LABS: Anion Gap 9 mmol/L (4-12); Blood Urea Nitrogen 4 mg/dL (7-17); Calcium 8.2 mg/dL (8.4-10.2); Carbon Dioxide 13 mmol/L (22-30); Chloride 111 mmol/L (98-107); Estimated CRCL calculation 232 ml/min; Estimated Glomerular Filt Rate > 60; Glucose 215 mg/dL (65-110); Potassium 3.3 mmol/L (3.4-5.0); Sodium 133 mmol/L (137-145)
[2024-12-05 06:19] LABS: Hematocrit 38.3 % (37.0-47.0); Hemoglobin 13.4 g/dL (12.0-15.0); Immature Granulocyte Percent A 0.3 % (0-0.5); Lymphocytes Absolute Auto 1.28 K/mm3 (0.9-3.2); Mean Corpuscular HGB Conc 35.0 g/dl (32-36); Mean Corpuscular Hemoglobin 31.1 pg (26-34); Mean Corpuscular Volume 88.9 fl (80-100); Nucleated Red Blood Cells Absolute Auto 0.000 K/mm3 (0.0-0.012); Nucleated Red Blood Cells Perc 0.0 % (0.0-0.2); Platelet Count Result 194 k/mm3 (150-375); Red Blood Count 4.31 M/mm3 (4.2-5.4); White Blood Count 3.8 K/mm3 (4.5-10.0)
[2024-12-05 06:54] LABS: Alanine Aminotransferase 10 U/L (6-35); Albumin Level 3.1 g/dL (3.5-5.1); Alkaline Phosphatase 101 U/L (38-126); Anion Gap 9 mmol/L (4-12); Aspartate Amino Transferase 20 U/L (14-36); Bilirubin,Total 0.6 mg/dL (0.2-1.3); Blood Urea Nitrogen 5 mg/dL (7-17); Calcium 8.6 mg/dL (8.4-10.2); Carbon Dioxide 15 mmol/L (22-30); Chloride 111 mmol/L (98-107); Estimated CRCL calculation 232 ml/min; Estimated Glomerular Filt Rate > 60; Glucose 186 mg/dL (65-110); Magnesium 1.7 mg/dL (1.6-2.3); Potassium 3.2 mmol/L (3.4-5.0); Sodium 135 mmol/L (137-145); Total Protein 5.7 g/dL (6.3-8.2)
[2024-12-05] MEDS: POTASSIUM BICARBONATE 25 MEQ TABEF 50 MEQ PO (08:26)
[2024-12-05] MEDS: POTASSIUM PHOS,M-BASIC-D-BASIC 20 MMOL in SODIUM CHLORIDE 0.9% IV 250 ML 64.17 MMOL IVPB ×2 (08:29→16:54)
[2024-12-05] MEDS: INSULIN GLARGINE (*BKC) 100 UNITS/ML 20 UNITS SUB-Q (08:30)
[2024-12-05] MEDS: atenoloL 12.5 MG TABLET PO (08:30)
--- NOTE | 2024-12-05 10:33 | P.PNINT_ITS ---
Progress Note: A&P Assessment and Plan (1) DKA (diabetic ketoacidosis): Qualifiers: Diabetes mellitus complication detail: without coma Diabetes mellitus type: type 2 Qualified Code(s): E11.10 - Type 2 diabetes mellitus with ketoacidosis without coma Code(s): E11.10 - Type 2 diabetes mellitus with ketoacidosis without coma Status: Acute Assessment and Plan: Patient presented with nausea, vomiting, polyuria and polydipsia. She also noted elevated blood sugars -in the ED patient was found to be tachycardic, very low CO2 on her BMP, anion gap was not calculable. -patient diagnosed with DKA as she has not been taking her insulin for last 3 weeks. - Patient treated with IV fluids and IV insulin and serial BMPs were done. -anion gap has closed and patient's symptoms have improved. I will transition patient to subcutaneous insulin. Start her consistent carbohydrate diet -replace low potassium and phosphate and recheck electrolytes later in the day -will request care coordination assist patient with medications and follow-up primary care doctor (2) Newly diagnosed diabetes: Code(s): E11.9 - Type 2 diabetes mellitus without complications Status: Acute Assessment and Plan: Patient is newly diagnosed for diabetes type 1 in October of 2024, has not been able to fill her sliding scale insulin and Lantus -10/21/2023: Hemoglobin A1c was 10.8 (3) Hyperthyroidism: Code(s): E05.90 - Thyrotoxicosis, unspecified without thyrotoxic crisis or storm Status: Acute Assessment and Plan: Patient with history of hypothyroidism 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 She claims she has been taking her methimazole as an outpatient -continue atenolol and methimazole -TSH level <0.015, - T4 level 2.01, -total T3 level 0.96 Plan DVT prophylaxis: SCDs Nutrition: Consistent carbohydrate diet Code Status: Full code Critical Care Time Spent: 30 minutes Due to a high probability of clinically significant, life threatening deterioration, the patient required my highest level of preparedness to intervene emergently and I personally spent this critical care time directly and personally managing the patient. This critical care time included obtaining a history; examining the patient; pulse oximetry; ordering and review of studies; arranging urgent treatment with development of a management plan; evaluation of patient's response to treatment; frequent reassessment; and discussions with other providers. It was exclusive of separately billable procedures and treating other patients and teaching time. Please see Assessment and Plan section and the rest of the note for further information on patient assessment and treatment This dictation may have been done utilizing a voice recognition system. Attempts have been made to correct errors. However, there may be uncorrected grammatical, spelling, and recognitions errors present. Subjective Date/time seen: 12/05/24 Overnight events reviewed. Afebrile She states her nausea vomiting has improved and symptoms have improved and she is feeling better. She denies any new complaints. She is ready to eat food. Afebrile other vitals acceptable. Currently on insulin drip at 1 unit along with IV fluids Review of Systems Review of Systems: All systems reviewed & are unremarkable except as noted in HPI and below Exam Narrative: General: Pleasant young female, currently in no acute distress HEENT:? Pupils equal and reactive, exophthalmos noted, sclera is clear, dry oral mucosa Neck:? Supple mild thyromegaly Respiratory:? Clear to auscultation bilaterally, no wheezing, adequate air entry Cardiac:? S1-S2 is normal, tachycardia Abdomen:? Soft, nontender, nondistended, normoactive bowel sounds Extremities:? No edema, no clubbing or cyanosis. Neuro:? Patient is awake, alert, oriented x3, nonfocal, answers to questions appropriately and follows simple commands in all extremities Skin:? Skin turgor is decreased, no skin lesions noted Psych:? Normal mentation and affect Objective Data Vital Signs Vital Signs: Vital Signs - 24 hr 12/04/24 10:53 12/04/24 11:12 12/04/24 11:20 Temperature 36.6 C Pulse Rate 145 H 126 H 126 H Respiratory Rate 26 H 37 H 24 H Blood Pressure 149/99 H 141/98 H 133/90 Pulse Oximetry 100 99 98 Oxygen Delivery Room Air Room Air 12/04/24 12:11 12/04/24 13:01 12/04/24 13:57 Temperature Pulse Rate 116 H 111 H 113 H Respiratory Rate 33 H 30 H 28 H Blood Pressure 139/90 124/76 133/75 Pulse Oximetry 99 100 100 Oxygen Delivery 12/04/24 14:41 12/04/24 15:00 12/04/24 16:00 Temperature 37.1 C 37.1 C Pulse Rate 123 H 109 H 103 H Respiratory Rate 27 H 24 H Blood Pressure 123/77 124/83 Pulse Oximetry 99 23 L Oxygen Delivery 12/04/24 16:00 12/04/24 16:00 12/04/24 17:00 Temperature 37.1 C Pulse Rate 102 H 101 H 101 H Respiratory Rate 23 H 23 H Blood Pressure 122/76 Pulse Oximetry 100 100 Oxygen Delivery Room Air 12/04/24 18:00 12/04/24 18:00 12/04/24 19:00 Temperature 37.1 C Pulse Rate 101 H 94 100 Respiratory Rate 17 23 H Blood Pressure 131/77 128/70 Pulse Oximetry 98 100 Oxygen Delivery 12/04/24 19:28 12/04/24 20:00 12/04/24 20:00 Temperature Pulse Rate 93 108 H Respiratory Rate 20 Blood Pressure Pulse Oximetry 100 Oxygen Delivery Room Air Room Air 12/04/24 20:00 12/04/24 21:00 12/04/24 22:00 Temperature 37.1 C Pulse Rate 108 H 90 92 Respiratory Rate 26 H 18 Blood Pressure 126/79 112/66 Pulse Oximetry 100 99 Oxygen Delivery 12/04/24 22:00 12/04/24 23:00 12/05/24 00:00 Temperature Pulse Rate 92 90 90 Respiratory Rate 18 18 16 Blood Pressure 112/66 113/69 Pulse Oximetry 99 98 100 Oxygen Delivery Room Air 12/05/24 00:00 12/05/24 00:00 12/05/24 01:00 Temperature 36.9 C Pulse Rate 78 78 85 Respiratory Rate 15 16 Blood Pressure 109/65 113/70 Pulse Oximetry 100 99 Oxygen Delivery 12/05/24 02:00 12/05/24 02:00 12/05/24 03:00 Temperature Pulse Rate 82 84 72 Respiratory Rate 17 15 Blood Pressure 113/70 111/68 Pulse Oximetry 99 99 Oxygen Delivery 12/05/24 04:00 12/05/24 04:00 12/05/24 04:00 Temperature Pulse Rate 77 77 Respiratory Rate 16 Blood Pressure 111/68 Pulse Oximetry 99 Oxygen Delivery Room Air 12/05/24 05:00 12/05/24 05:58 12/05/24 05:58 Temperature 36.6 C 36.6 C Pulse Rate 74 68 70 Respiratory Rate 17 15 Blood Pressure 108/67 106/65 Pulse Oximetry 99 99 Oxygen Delivery 12/05/24 07:00 12/05/24 07:48 12/05/24 08:00 Temperature 36.6 C Pulse Rate 72 73 Respiratory Rate 16 15 Blood Pressure 108/68 111/65 Pulse Oximetry 99 98 100 Oxygen Delivery Room Air 12/05/24 08:00 12/05/24 08:30 Temperature Pulse Rate 79 84 Respiratory Rate Blood Pressure Pulse Oximetry Oxygen Delivery Intake/Output Intake/Output: Intake & Output 12/02/24 12/03/24 12/04/24 12/05/24 23:59 23:59 23:59 23:59 Intake Total 3220.9 1448.6 Output Total 350 Balance 2870.9 1448.6 Meds/Results Medications: Active Medications Generic Name Dose Route Start Last Admin Trade Name Freq PRN Reason Stop Dose Admin Atenolol 12.5 mg 12/04/24 14:15 12/05/24 08:30 Atenolol 12.5 Mg Tablet PO 12.5 mg DAILY JULIO C Administration Dextrose 12.5 gm 12/04/24 14:10 Dextrose 50% 25 Gm/50 Ml Syringe IV PUSH PRN PRN Hypoglycemia Protocol Glucagon 1 mg 12/04/24 14:10 Glucagon For Inj 1 Mg Vial IM PRN PRN Hypoglycemia Protocol Glucose 15 gm 12/04/24 14:10 Glucose Oral Gel 15 Gm Of Glucse In 37.5 Gm Tube PO PRN PRN Hypoglycemia Protocol Insulin Human Regular 100 100 mls @ 0 mls/hr 12/04/24 13:20 12/05/24 09:32 units/ Sodium Chloride IV CONT 0 units/hr .Q0M JULIO C 0 mls/hr Protocol Titration Dextrose 1,000 mls @ 100 mls/hr 12/04/24 14:10 Dextrose 5% 1,000 Ml IVPB PRN PRN Hypoglycemia Protocol Potassium Chloride/Dextrose/Sod Cl 1,000 mls @ 150 mls/hr 12/04/24 14:10 12/05/24 09:00 Kcl 20 Meq/D5/0.45% Sod Chl IV CONT 0 mls/hr .Q6H40M JULIO C Infusion Potassium Phosphate 20 mmol/ 256.6667 mls @ 64.167 mls/hr 12/05/24 08:30 12/05/24 08:29 Sodium Chloride IVPB 12/05/24 12:29 64.17 mls/hr ONCE ONE Administration Insulin Aspart 4 units 12/05/24 08:00 12/05/24 08:13 Insulin Aspart (*Bkc) 100 Units/Ml SUB-Q Not Given TIDWM [facility] Insulin Aspart 1 - 3 units 12/05/24 21:00 Insulin Aspart (*Bkc) 100 Units/Ml SUB-Q HS [facility] Protocol Insulin Aspart 3 - 6 units 12/05/24 08:00 12/05/24 08:14 Insulin Aspart (*Bkc) 100 Units/Ml SUB-Q Not Given TIDWM [facility] Protocol Insulin Glargine 20 units 12/05/24 09:00 12/05/24 08:30 Insulin Glargine (*Bkc) 100 Units/Ml SUB-Q 20 units QAM JULIO C Administration Methimazole 10 mg 12/04/24 14:15 12/05/24 08:29 Methimazole 10 Mg Tab PO 10 mg DAILY JULIO C Administration Ondansetron HCl 4 mg 12/04/24 13:24 12/04/24 20:48 Ondansetron Inj 4 Mg/2 Ml Vial IV PUSH 4 mg Q4H PRN Administration Nausea Labs Labs: Laboratory Results - last 24 hr 12/04/24 12/04/24 12/04/24 10:52 11:01 11:03 WBC 12.8 H RBC 5.52 H Hgb 17.2 H D Hct 50.0 H MCV 90.6 MCH 31.2 MCHC 34.4 RDW 13.3 Plt Count 289 D MPV 10.4 Immature Gran % (Auto) 0.4 Neut % (Auto) 92.5 H Lymph % (Auto) 3.4 L [place] % (Auto) 3.2 Eos % (Auto) 0.1 Baso % (Auto) 0.4 Lymph # (Auto) 0.44 L [place] # (Auto) 0.4 Eos # (Auto) 0.0 Baso # (Auto) 0.1 Abs Immat Gran (auto) 0.05 H Absolute Neuts (auto) 11.8 H Absolute Nucleated RBC 0.000 Nucleated RBC % 0.0 Puncture Site ABG pH ABG pCO2 ABG pO2 ABG PO2/FiO2 Ratio ABG HCO3 ABG O2 Saturation ABG O2 Content ABG Base Excess A-a Gradient Oxyhemoglobin Carboxyhemoglobin Methemoglobin Reduced Hemoglobin Total Hemoglobin O2 Delivery Device O2 Liters/Min FiO2 Sodium 136 L Potassium 4.5 Chloride 105 Carbon Dioxide < 5 L Anion Gap BUN 8 Creatinine 0.46 L Estim Creat Clear Calc 157 Estimated GFR > 60 Glucose 320 H POC Capillary Glucose 300 H Hemoglobin A1c 8.7 H Lactic Acid Calcium 8.9 Phosphorus 4.3 Magnesium 1.9 Total Bilirubin 0.9 AST 20 ALT 15 Alkaline Phosphatase 170 H Total Protein 8.4 H Albumin 4.8 Beta-Hydroxybutyrate/Acetoacetate 7.44 H TSH (Reflex) < 0.015 L Free T4 2.01 Total T3 0.96 Urine Color Urine Appearance Urine pH Ur Specific [place] Urine Protein Urine Glucose (UA) Urine Ketones Ur Blood (Man) Urine Nitrate Urine Bilirubin Urine Urobilinogen Leukocyte Esterase Rfl Urine RBC Urine WBC Ur Squamous Epith Cells Urine Bacteria Urine Casts POC Urine HCG, Qual Nasal MRSA (PCR) 12/04/24 12/04/24 12/04/24 11:04 11:12 11:15 WBC RBC Hgb Hct MCV MCH MCHC RDW Plt Count MPV Immature Gran % (Auto) Neut % (Auto) Lymph % (Auto) [place] % (Auto) Eos % (Auto) Baso % (Auto) Lymph # (Auto) [place] # (Auto) Eos # (Auto) Baso # (Auto) Abs Immat Gran (auto) Absolute Neuts (auto) Absolute Nucleated RBC Nucleated RBC % Puncture Site Right radial ABG pH 7.176 L* ABG pCO2 12.3 L* ABG pO2 125.8 H ABG PO2/FiO2 Ratio 5.99 ABG HCO3 4.4 L ABG O2 Saturation 97.8 ABG O2 Content 23.9 H ABG Base Excess -20.9 A-a Gradient 47.7 Oxyhemoglobin 97.1 Carboxyhemoglobin 0.5 Methemoglobin 0.4 Reduced Hemoglobin 2.0 Total Hemoglobin 17.4 O2 Delivery Device Room air O2 Liters/Min 0.0 FiO2 21 Sodium Potassium Chloride Carbon Dioxide Anion Gap BUN Creatinine Estim Creat Clear Calc Estimated GFR Glucose POC Capillary Glucose Hemoglobin A1c Lactic Acid 1.3 Calcium Phosphorus Magnesium Total Bilirubin AST ALT Alkaline Phosphatase Total Protein Albumin Beta-Hydroxybutyrate/Acetoacetate TSH (Reflex) Free T4 Total T3 Urine Color Urine Appearance Urine pH Ur Specific [place] Urine Protein Urine Glucose (UA) Urine Ketones Ur Blood (Man) Urine Nitrate Urine Bilirubin Urine Urobilinogen Leukocyte Esterase Rfl Urine RBC Urine WBC Ur Squamous Epith Cells Urine Bacteria Urine Casts POC Urine HCG, Qual Negative Nasal MRSA (PCR) 12/04/24 12/04/24 12/04/24 11:20 13:18 13:44 WBC RBC Hgb Hct MCV MCH MCHC RDW Plt Count MPV Immature Gran % (Auto) Neut % (Auto) Lymph % (Auto) [place] % (Auto) Eos % (Auto) Baso % (Auto) Lymph # (Auto) [place] # (Auto) Eos # (Auto) Baso # (Auto) Abs Immat Gran (auto) Absolute Neuts (auto) Absolute Nucleated RBC Nucleated RBC % Puncture Site ABG pH ABG pCO2 ABG pO2 ABG PO2/FiO2 Ratio ABG HCO3 ABG O2 Saturation ABG O2 Content ABG Base Excess A-a Gradient Oxyhemoglobin Carboxyhemoglobin Methemoglobin Reduced Hemoglobin Total Hemoglobin O2 Delivery Device O2 Liters/Min FiO2 Sodium Potassium Chloride Carbon Dioxide Anion Gap BUN Creatinine Estim Creat Clear Calc Estimated GFR Glucose POC Capillary Glucose 236 H Hemoglobin A1c Lactic Acid Calcium Phosphorus Magnesium Total Bilirubin AST ALT Alkaline Phosphatase Total Protein Albumin Beta-Hydroxybutyrate/Acetoacetate TSH (Reflex) Free T4 Total T3 Urine Color Yellow Urine Appearance Clear Urine pH 5.0 Ur Specific [place] 1.027 Urine Protein 2+ H Urine Glucose (UA) 3+ H Urine Ketones 4+ H Ur Blood (Man) Trace Urine Nitrate Negative Urine Bilirubin Negative Urine Urobilinogen 0.2 Leukocyte Esterase Rfl Negative Urine RBC 0-2 Urine WBC 0-5 Ur Squamous Epith Cells Occasional Urine Bacteria None seen Urine Casts 0-2 POC Urine HCG, Qual Nasal MRSA (PCR) Not detected 12/04/24 12/04/24 12/04/24 14:21 14:59 15:18 WBC RBC Hgb Hct MCV MCH MCHC RDW Plt Count MPV Immature Gran % (Auto) Neut % (Auto) Lymph % (Auto) [place] % (Auto) Eos % (Auto) Baso % (Auto) Lymph # (Auto) [place] # (Auto) Eos # (Auto) Baso # (Auto) Abs Immat Gran (auto) Absolute Neuts (auto) Absolute Nucleated RBC Nucleated RBC % Puncture Site ABG pH ABG pCO2 ABG pO2 ABG PO2/FiO2 Ratio ABG HCO3 ABG O2 Saturation ABG O2 Content ABG Base Excess A-a Gradient Oxyhemoglobin Carboxyhemoglobin Methemoglobin Reduced Hemoglobin Total Hemoglobin O2 Delivery Device O2 Liters/Min FiO2 Sodium 137 Potassium 3.8 Chloride 112 H Carbon Dioxide < 5 L Anion Gap BUN 6 L Creatinine 0.36 L Estim Creat Clear Calc 194 Estimated GFR > 60 Glucose 186 H POC Capillary Glucose 255 H 198 H Hemoglobin A1c Lactic Acid Calcium 7.9 L Phosphorus 2.6 Magnesium 1.7 Total Bilirubin AST ALT Alkaline Phosphatase Total Protein Albumin Beta-Hydroxybutyrate/Acetoacetate TSH (Reflex) Free T4 Total T3 Urine Color Urine Appearance Urine pH Ur Specific [place] Urine Protein Urine Glucose (UA) Urine Ketones Ur Blood (Man) Urine Nitrate Urine Bilirubin Urine Urobilinogen Leukocyte Esterase Rfl Urine RBC Urine WBC Ur Squamous Epith Cells Urine Bacteria Urine Casts POC Urine HCG, Qual Nasal MRSA (PCR) 12/04/24 12/04/24 12/04/24 15:53 16:58 18:01 WBC RBC Hgb Hct MCV MCH MCHC RDW Plt Count MPV Immature Gran % (Auto) Neut % (Auto) Lymph % (Auto) [place] % (Auto) Eos % (Auto) Baso % (Auto) Lymph # (Auto) [place] # (Auto) Eos # (Auto) Baso # (Auto) Abs Immat Gran (auto) Absolute Neuts (auto) Absolute Nucleated RBC Nucleated RBC % Puncture Site ABG pH ABG pCO2 ABG pO2 ABG PO2/FiO2 Ratio ABG HCO3 ABG O2 Saturation ABG O2 Content ABG Base Excess A-a Gradient Oxyhemoglobin Carboxyhemoglobin Methemoglobin Reduced Hemoglobin Total Hemoglobin O2 Delivery Device O2 Liters/Min FiO2 Sodium Potassium Chloride Carbon Dioxide Anion Gap BUN Creatinine Estim Creat Clear Calc Estimated GFR Glucose POC Capillary Glucose 193 H 209 H 364 H Hemoglobin A1c Lactic Acid Calcium Phosphorus Magnesium Total Bilirubin AST ALT Alkaline Phosphatase Total Protein Albumin Beta-Hydroxybutyrate/Acetoacetate TSH (Reflex) Free T4 Total T3 Urine Color Urine Appearance Urine pH Ur Specific [place] Urine Protein Urine Glucose (UA) Urine Ketones Ur Blood (Man) Urine Nitrate Urine Bilirubin Urine Urobilinogen Leukocyte Esterase Rfl Urine RBC Urine WBC Ur Squamous Epith Cells Urine Bacteria Urine Casts POC Urine HCG, Qual Nasal MRSA (PCR) 12/04/24 12/04/24 12/04/24 18:08 18:37 19:11 WBC RBC Hgb Hct MCV MCH MCHC RDW Plt Count MPV Immature Gran % (Auto) Neut % (Auto) Lymph % (Auto) [place] % (Auto) Eos % (Auto) Baso % (Auto) Lymph # (Auto) [place] # (Auto) Eos # (Auto) Baso # (Auto) Abs Immat Gran (auto) Absolute Neuts (auto) Absolute Nucleated RBC Nucleated RBC % Puncture Site ABG pH ABG pCO2 ABG pO2 ABG PO2/FiO2 Ratio ABG HCO3 ABG O2 Saturation ABG O2 Content ABG Base Excess A-a Gradient Oxyhemoglobin Carboxyhemoglobin Methemoglobin Reduced Hemoglobin Total Hemoglobin O2 Delivery Device O2 Liters/Min FiO2 Sodium 135 L Potassium 4.0 Chloride 109 H Carbon Dioxide < 5 L Anion Gap BUN 5 L Creatinine 0.36 L Estim Creat Clear Calc 194 Estimated GFR > 60 Glucose 226 H POC Capillary Glucose 217 H 236 H Hemoglobin A1c Lactic Acid Calcium 8.4 Phosphorus Magnesium Total Bilirubin AST ALT Alkaline Phosphatase Total Protein Albumin Beta-Hydroxybutyrate/Acetoacetate TSH (Reflex) Free T4 Total T3 Urine Color Urine Appearance Urine pH Ur Specific [place] Urine Protein Urine Glucose (UA) Urine Ketones Ur Blood (Man) Urine Nitrate Urine Bilirubin Urine Urobilinogen Leukocyte Esterase Rfl Urine RBC Urine WBC Ur Squamous Epith Cells Urine Bacteria Urine Casts POC Urine HCG, Qual Nasal MRSA (PCR) 12/04/24 12/04/24 12/04/24 20:10 21:00 22:02 WBC RBC Hgb Hct MCV MCH MCHC RDW Plt Count MPV Immature Gran % (Auto) Neut % (Auto) Lymph % (Auto) [place] % (Auto) Eos % (Auto) Baso % (Auto) Lymph # (Auto) [place] # (Auto) Eos # (Auto) Baso # (Auto) Abs Immat Gran (auto) Absolute Neuts (auto) Absolute Nucleated RBC Nucleated RBC % Puncture Site ABG pH ABG pCO2 ABG pO2 ABG PO2/FiO2 Ratio ABG HCO3 ABG O2 Saturation ABG O2 Content ABG Base Excess A-a Gradient Oxyhemoglobin Carboxyhemoglobin Methemoglobin Reduced Hemoglobin Total Hemoglobin O2 Delivery Device O2 Liters/Min FiO2 Sodium Potassium Chloride Carbon Dioxide Anion Gap BUN Creatinine Estim Creat Clear Calc Estimated GFR Glucose POC Capillary Glucose 252 H 236 H 238 H Hemoglobin A1c Lactic Acid Calcium Phosphorus Magnesium Total Bilirubin AST ALT Alkaline Phosphatase Total Protein Albumin Beta-Hydroxybutyrate/Acetoacetate TSH (Reflex) Free T4 Total T3 Urine Color Urine Appearance Urine pH Ur Specific [place] Urine Protein Urine Glucose (UA) Urine Ketones Ur Blood (Man) Urine Nitrate Urine Bilirubin Urine Urobilinogen Leukocyte Esterase Rfl Urine RBC Urine WBC Ur Squamous Epith Cells Urine Bacteria Urine Casts POC Urine HCG, Qual Nasal MRSA (PCR) 12/04/24 12/04/24 12/05/24 22:40 23:05 00:11 WBC RBC Hgb Hct MCV MCH MCHC RDW Plt Count MPV Immature Gran % (Auto) Neut % (Auto) Lymph % (Auto) [place] % (Auto) Eos % (Auto) Baso % (Auto) Lymph # (Auto) [place] # (Auto) Eos # (Auto) Baso # (Auto) Abs Immat Gran (auto) Absolute Neuts (auto) Absolute Nucleated RBC Nucleated RBC % Puncture Site ABG pH ABG pCO2 ABG pO2 ABG PO2/FiO2 Ratio ABG HCO3 ABG O2 Saturation ABG O2 Content ABG Base Excess A-a Gradient Oxyhemoglobin Carboxyhemoglobin Methemoglobin Reduced Hemoglobin Total Hemoglobin O2 Delivery Device O2 Liters/Min FiO2 Sodium 133 L Potassium 3.5 Chloride 110 H Carbon Dioxide 7 L Anion Gap 16 H BUN 4 L Creatinine 0.30 L Estim Creat Clear Calc 226 Estimated GFR > 60 Glucose 239 H POC Capillary Glucose 256 H 225 H Hemoglobin A1c Lactic Acid Calcium 8.3 L Phosphorus Magnesium Total Bilirubin AST ALT Alkaline Phosphatase Total Protein Albumin Beta-Hydroxybutyrate/Acetoacetate TSH (Reflex) Free T4 Total T3 Urine Color Urine Appearance Urine pH Ur Specific [place] Urine Protein Urine Glucose (UA) Urine Ketones Ur Blood (Man) Urine Nitrate Urine Bilirubin Urine Urobilinogen Leukocyte Esterase Rfl Urine RBC Urine WBC Ur Squamous Epith Cells Urine Bacteria Urine Casts POC Urine HCG, Qual Nasal MRSA (PCR) 12/05/24 12/05/24 12/05/24 01:02 02:09 02:10 WBC RBC Hgb Hct MCV MCH MCHC RDW Plt Count MPV Immature Gran % (Auto) Neut % (Auto) Lymph % (Auto) [place] % (Auto) Eos % (Auto) Baso % (Auto) Lymph # (Auto) [place] # (Auto) Eos # (Auto) Baso # (Auto) Abs Immat Gran (auto) Absolute Neuts (auto) Absolute Nucleated RBC Nucleated RBC % Puncture Site ABG pH ABG pCO2 ABG pO2 ABG PO2/FiO2 Ratio ABG HCO3 ABG O2 Saturation ABG O2 Content ABG Base Excess A-a Gradient Oxyhemoglobin Carboxyhemoglobin Methemoglobin Reduced Hemoglobin Total Hemoglobin O2 Delivery Device O2 Liters/Min FiO2 Sodium 133 L Potassium 3.3 L Chloride 111 H Carbon Dioxide 13 L Anion Gap 9 BUN 4 L Creatinine 0.29 L Estim Creat Clear Calc 232 Estimated GFR > 60 Glucose 215 H POC Capillary Glucose 216 H 247 H Hemoglobin A1c Lactic Acid Calcium 8.2 L Phosphorus Magnesium Total Bilirubin AST ALT Alkaline Phosphatase Total Protein Albumin Beta-Hydroxybutyrate/Acetoacetate TSH (Reflex) Free T4 Total T3 Urine Color Urine Appearance Urine pH Ur Specific [place] Urine Protein Urine Glucose (UA) Urine Ketones Ur Blood (Man) Urine Nitrate Urine Bilirubin Urine Urobilinogen Leukocyte Esterase Rfl Urine RBC Urine WBC Ur Squamous Epith Cells Urine Bacteria Urine Casts POC Urine HCG, Qual Nasal MRSA (PCR) 12/05/24 12/05/24 12/05/24 03:02 04:03 04:59 WBC RBC Hgb Hct MCV MCH MCHC RDW Plt Count MPV Immature Gran % (Auto) Neut % (Auto) Lymph % (Auto) [place] % (Auto) Eos % (Auto) Baso % (Auto) Lymph # (Auto) [place] # (Auto) Eos # (Auto) Baso # (Auto) Abs Immat Gran (auto) Absolute Neuts (auto) Absolute Nucleated RBC Nucleated RBC % Puncture Site ABG pH ABG pCO2 ABG pO2 ABG PO2/FiO2 Ratio ABG HCO3 ABG O2 Saturation ABG O2 Content ABG Base Excess A-a Gradient Oxyhemoglobin Carboxyhemoglobin Methemoglobin Reduced Hemoglobin Total Hemoglobin O2 Delivery Device O2 Liters/Min FiO2 Sodium Potassium Chloride Carbon Dioxide Anion Gap BUN Creatinine Estim Creat Clear Calc Estimated GFR Glucose POC Capillary Glucose 234 H 224 H 203 H Hemoglobin A1c Lactic Acid Calcium Phosphorus Magnesium Total Bilirubin AST ALT Alkaline Phosphatase Total Protein Albumin Beta-Hydroxybutyrate/Acetoacetate TSH (Reflex) Free T4 Total T3 Urine Color Urine Appearance Urine pH Ur Specific [place] Urine Protein Urine Glucose (UA) Urine Ketones Ur Blood (Man) Urine Nitrate Urine Bilirubin Urine Urobilinogen Leukocyte Esterase Rfl Urine RBC Urine WBC Ur Squamous Epith Cells Urine Bacteria Urine Casts POC Urine HCG, Qual Nasal MRSA (PCR) 12/05/24 12/05/24 12/05/24 05:57 06:14 07:07 WBC 3.8 L RBC 4.31 Hgb 13.4 D Hct 38.3 MCV 88.9 MCH 31.1 MCHC 35.0 RDW 13.5 Plt Count 194 MPV 10.0 Immature Gran % (Auto) 0.3 Neut % (Auto) 47.1 Lymph % (Auto) 33.3 [place] % (Auto) 13.5 H Eos % (Auto) 5.5 H Baso % (Auto) 0.3 Lymph # (Auto) 1.28 [place] # (Auto) 0.5 Eos # (Auto) 0.2 Baso # (Auto) 0.0 Abs Immat Gran (auto) 0.01 Absolute Neuts (auto) 1.8 Absolute Nucleated RBC 0.000 Nucleated RBC % 0.0 Puncture Site ABG pH ABG pCO2 ABG pO2 ABG PO2/FiO2 Ratio ABG HCO3 ABG O2 Saturation ABG O2 Content ABG Base Excess A-a Gradient Oxyhemoglobin Carboxyhemoglobin Methemoglobin Reduced Hemoglobin Total Hemoglobin O2 Delivery Device O2 Liters/Min FiO2 Sodium 135 L Potassium 3.2 L Chloride 111 H Carbon Dioxide 15 L Anion Gap 9 BUN 5 L Creatinine 0.29 L Estim Creat Clear Calc 232 Estimated GFR > 60 Glucose 186 H POC Capillary Glucose 208 H 186 H Hemoglobin A1c Lactic Acid Calcium 8.6 Phosphorus 2.0 L Magnesium 1.7 Total Bilirubin 0.6 AST 20 ALT 10 Alkaline Phosphatase 101 Total Protein 5.7 L Albumin 3.1 L Beta-Hydroxybutyrate/Acetoacetate TSH (Reflex) Free T4 Total T3 Urine Color Urine Appearance Urine pH Ur Specific [place] Urine Protein Urine Glucose (UA) Urine Ketones Ur Blood (Man) Urine Nitrate Urine Bilirubin Urine Urobilinogen Leukocyte Esterase Rfl Urine RBC Urine WBC Ur Squamous Epith Cells Urine Bacteria Urine Casts POC Urine HCG, Qual Nasal MRSA (PCR) 12/05/24 12/05/24 08:00 09:01 WBC RBC Hgb Hct MCV MCH MCHC RDW Plt Count MPV Immature Gran % (Auto) Neut % (Auto) Lymph % (Auto) [place] % (Auto) Eos % (Auto) Baso % (Auto) Lymph # (Auto) [place] # (Auto) Eos # (Auto) Baso # (Auto) Abs Immat Gran (auto) Absolute Neuts (auto) Absolute Nucleated RBC Nucleated RBC % Puncture Site ABG pH ABG pCO2 ABG pO2 ABG PO2/FiO2 Ratio ABG HCO3 ABG O2 Saturation ABG O2 Content ABG Base Excess A-a Gradient Oxyhemoglobin Carboxyhemoglobin Methemoglobin Reduced Hemoglobin Total Hemoglobin O2 Delivery Device O2 Liters/Min FiO2 Sodium Potassium Chloride Carbon Dioxide Anion Gap BUN Creatinine Estim Creat Clear Calc Estimated GFR Glucose POC Capillary Glucose 222 H 255 H Hemoglobin A1c Lactic Acid Calcium Phosphorus Magnesium Total Bilirubin AST ALT Alkaline Phosphatase Total Protein Albumin Beta-Hydroxybutyrate/Acetoacetate TSH (Reflex) Free T4 Total T3 Urine Color Urine Appearance Urine pH Ur Specific [place] Urine Protein Urine Glucose (UA) Urine Ketones Ur Blood (Man) Urine Nitrate Urine Bilirubin Urine Urobilinogen Leukocyte Esterase Rfl Urine RBC Urine WBC Ur Squamous Epith Cells Urine Bacteria Urine Casts POC Urine HCG, Qual Nasal MRSA (PCR) Quality VTE Prophylaxis VTE prophylaxis: mechanical ordered
[2024-12-05] MEDS: INSULIN ASPART (*BKC) 100 UNITS/ML SUB-Q ×5 (11:53→21:10)
[2024-12-05 15:25] LABS: Anion Gap 12 mmol/L (4-12); Blood Urea Nitrogen 6 mg/dL (7-17); Calcium 8.9 mg/dL (8.4-10.2); Carbon Dioxide 16 mmol/L (22-30); Chloride 108 mmol/L (98-107); Estimated CRCL calculation 209 ml/min; Estimated Glomerular Filt Rate > 60; Glucose 233 mg/dL (65-110); Potassium 3.7 mmol/L (3.4-5.0); Sodium 136 mmol/L (137-145)
[2024-12-06] VITALS: PULSE 66
[2024-12-06 03:34] LABS: Hematocrit 37.3 % (37.0-47.0); Hemoglobin 12.8 g/dL (12.0-15.0); Mean Corpuscular HGB Conc 34.3 g/dl (32-36); Mean Corpuscular Hemoglobin 31.0 pg (26-34); Mean Corpuscular Volume 90.3 fl (80-100); Platelet Count Result 184 k/mm3 (150-375); Red Blood Count 4.13 M/mm3 (4.2-5.4); White Blood Count 3.0 K/mm3 (4.5-10.0)
[2024-12-06 03:51] LABS: Alanine Aminotransferase 10 U/L (6-35); Albumin Level 3.0 g/dL (3.5-5.1); Alkaline Phosphatase 101 U/L (38-126); Anion Gap 11 mmol/L (4-12); Aspartate Amino Transferase 18 U/L (14-36); Bilirubin,Total 0.5 mg/dL (0.2-1.3); Blood Urea Nitrogen 5 mg/dL (7-17); Calcium 8.3 mg/dL (8.4-10.2); Carbon Dioxide 19 mmol/L (22-30); Chloride 106 mmol/L (98-107); Estimated CRCL calculation 226 ml/min; Estimated Glomerular Filt Rate > 60; Glucose 240 mg/dL (65-110); Magnesium 1.7 mg/dL (1.6-2.3); Potassium 3.3 mmol/L (3.4-5.0); Sodium 136 mmol/L (137-145); Total Protein 5.6 g/dL (6.3-8.2)
[2024-12-06 04:00] VITALS: BP 119/67; PULSE 58; PULSE 60; RESP 16; TEMP 36.6; O2SAT 100
--- NOTE | 2024-12-06 06:26 | ADMGEN ---
This patient, Lisa Ray, was admitted to IMU Room 210-01. Patient/family oriented to hospital policies and general routines including ID bracelet, bed and alarms, visiting hours, pain management, procedures, bathroom and other care routines, personal items, smoking policy, room service/diet, and visiting hours. Information on how to activate the Rapid Response Team has been discussed. Patient/Family are encouraged to report perceived risks to care and to ask questions if they do not understand what they are told or what they should do.
[2024-12-06 08:00] VITALS: BP 112/60; PULSE 78; RESP 20; TEMP 36.7; O2SAT 99
[2024-12-06] MEDS: INSULIN ASPART (*BKC) 100 UNITS/ML SUB-Q ×3 (09:26→12:20)
[2024-12-06] MEDS: INSULIN GLARGINE (*BKC) 100 UNITS/ML 20 UNITS SUB-Q (09:29)
[2024-12-06 09:35] VITALS: PULSE 83
[2024-12-06] MEDS: atenoloL 12.5 MG TABLET PO (09:35)
[2024-12-06 12:00] VITALS: PULSE 95
[2024-12-06 12:30] VITALS: BP 106/60; PULSE 68; RESP 18; TEMP 36.6; O2SAT 100
--- NOTE | 2024-12-06 15:08 | PM.DS ---
DS: Admitting Diagnosis Discharge Date 12/06/24 Admitting Diagnosis Nausea/ vomiting/ diarrhea DS: Discharge Diagnosis Discharge Diagnosis (1) DKA (diabetic ketoacidosis): Qualifiers: Diabetes mellitus complication detail: without coma Diabetes mellitus type: type 2 Qualified Code(s): E11.10 - Type 2 diabetes mellitus with ketoacidosis without coma Code(s): E11.10 - Type 2 diabetes mellitus with ketoacidosis without coma Status: Acute DS: Summary Hospital Course Hospital Course: 19-year-old female with a past medical history of Graves disease and recently diagnosed type 1 diabetes presented to the emergency department 12/04/2024 with complaints of nausea vomiting, diarrhea and has been unable to get her insulin since her discharge on 10/24/24. Patient was managed for DKA, initially in the ICU with IVF ad insulin infusion. DKA resolved and blood sugar doing well on Sub regimen. DIscussed with patient at bedside about follow up with PCP. Discharged on Lantus insulin 20 units daily, 5 u premeal and SSI with accucheks. F/u closely with PCP in 3-5 days Time Spent with Patient Time attestation: Total time spent providing and/or coordinating discharge services: DS: Data Data Completed and Pending Labs on day of discharge: Labs from last 24 hours 12/06/24 12/06/24 12/06/24 11:14 07:45 03:29 WBC 3.0 L RBC 4.13 L Hgb 12.8 Hct 37.3 MCV 90.3 MCH 31.0 MCHC 34.3 RDW 13.6 Plt Count 184 MPV 10.0 Sodium 136 L Potassium 3.3 L Chloride 106 Carbon Dioxide 19 L Anion Gap 11 BUN 5 L Creatinine 0.30 L Estim Creat Clear Calc 226 Estimated GFR > 60 Glucose 240 H POC Capillary Glucose 191 H 271 H Calcium 8.3 L Phosphorus 3.7 Magnesium 1.7 Total Bilirubin 0.5 AST 18 ALT 10 Alkaline Phosphatase 101 Total Protein 5.6 L Albumin 3.0 L 12/05/24 12/05/24 12/05/24 21:07 16:53 14:53 WBC RBC Hgb Hct MCV MCH MCHC RDW Plt Count MPV Sodium 136 L Potassium 3.7 Chloride 108 H Carbon Dioxide 16 L Anion Gap 12 BUN 6 L Creatinine 0.33 L Estim Creat Clear Calc 209 Estimated GFR > 60 Glucose 233 H POC Capillary Glucose 224 H 214 H Calcium 8.9 Phosphorus 2.2 L Magnesium Total Bilirubin AST ALT Alkaline Phosphatase Total Protein Albumin Discharge Plan Discharge Attending physician on discharge: Ramona Tolbert Consulting providers: Ramez Pollock; Felicia Farah Discharging Clinician: Ramona Tolbert Anticipated Discharge Date/Time: 12/06/24 14:57 Patient Disposition: Home Activity: as tolerated Diet: as tolerated and diabetic Patient Instructions: Antibiotic Form Patient Language: Georgian Stand Alone Forms: General Discharge Information Follow-up/Referrals: PHYSICIAN,PRIMER WATERPROOFING MACHINE OPERATOR [Primary Care Provider, Internal Medicine] Referral Note: F/u with PCP in 3-5 days Discharge Medications: New (DME) blood-glucose meter [OneTouch Verio Flex meter] Misc Qty: 1 0RF Rx Instructions: May substitute to in-stock meter and/or covered by insurance. Use As Directed (DME) OneTouch Verio test strips Strip Qty: 1 0RF Rx Instructions: May substitute to in-stock and/or covered by insurance strips. Use As Directed (DME) pen needle, diabetic 32 gauge x 1/4 Needle Qty: 1 0RF Rx Instructions: As Directed (DME) lancets [OneTouch Delica Plus Lancet] 30 gauge misc Qty: 1 0RF Rx Instructions: May substitute to in-stock and/or covered by insurance lancets. Use As Directed (DME) insulin syringe,safety needle 0.5 mL 31 gauge x 5/16 Syringe Qty: 1 0RF Rx Instructions: As Directed insulin glargine [Lantus Solostar U-100 Insulin] 100 unit/mL (3 mL) insulin pen 20 unit subcut QAM Qty: 15 1RF Humalog KwikPen Insulin 200 unit/mL (3 mL) insulin pen 1 sliding scale dose subcut USEASDIRECTD Qty: 6 1RF Rx Instructions: 151-200 4 units 201-250 6 units 251-300 8 units >300 give 10 units and Call HCP Humalog KwikPen Insulin 200 unit/mL (3 mL) insulin pen 5 unit subcut TIDWMEAL Qty: 6 3RF Continued atenolol 25 mg tablet 12.5 mg PO DAILY Qty: 60 2RF methimazole 10 mg tablet 10 mg PO DAILY Qty: 60 2RF Discontinued insulin glargine [Lantus Solostar U-100 Insulin] 100 unit/mL (3 mL) insulin pen 20 unit subcut QAM Qty: 15 1RF insulin lispro [Humalog KwikPen Insulin] 100 unit/mL insulin pen 1 sliding scale dose subcut USEASDIRECTD Qty: 3 0RF Rx Instructions: 151-200 4 units 201-250 6 units 251-300 8 units >300Call HCP Humalog KwikPen Insulin 200 unit/mL (3 mL) insulin pen 6 unit subcut TIDWMEAL Qty: 6 0RF No Action (DME) blood-glucose meter [OneTouch Verio Flex meter] Mis Qty: 1 0RF Rx Instructions: May substitute to in-stock meter and/or covered by insurance. Use As Directed (DME) OneTouch Verio test strips Strip Qty: 1 0RF Rx Instructions: May substitute to in-stock and/or covered by insurance strips. Use As Directed (DME) pen needle, diabetic 32 gauge x 5/32 Needle Qty: 1 0RF Rx Instructions: As Directed (DME) lancets [OneTouch Delica Plus Lancet] 30 gauge misc Qty: 1 0RF Rx Instructions: May substitute to in-stock and/or covered by insurance lancets. Use As Directed Date of admission: 12/04/24 13:24 Primary Care Provider: PHYSICIAN,PRIMER WATERPROOFING MACHINE OPERATOR Admitting Provider: Gaudencio Gonzalez Attending physician on admission: Gaudencio Gonzalez Condition: Stable
--- NOTE | 2024-12-08 15:26 | PCCDE ---
12/08/24: On DM educator courtesy follow up call attempt. Outbound recording stating I should state name and reason for calling.....and person trying to reach --- see if answer phone. Call was disconnected.
== END 2024-12-06 15:46 | disposition home or self-care (01) ==
LOC: ANHED 12:43 → ANHICU 21:56 → ANHIMU 12-06 14:58 → ANHICU 12-07 07:05 → ANHIMU 12-07 07:05
PROVIDERS: Internal Medicine; Student in an Organized Health Care Education/Training Program; Admitting Provider General Practice; Emergency Provider Emergency Medicine; Visit Provider Internal Medicine
DX: E10.10 Type 1 diabetes mellitus with ketoacidosis without coma (principal); E05.90 Thyrotoxicosis, unspecified without thyrotoxic crisis or storm; Z91.148 Patient's other noncompliance with medication regimen for other reason
CPT/HCPCS: 11740; 36415; 36600; 80048; 80053; 81001; 81025; 82010; 82375; 82805; 82948; 83036; 83050; 83605; 83735; 84100; 84439; 84443; 84480; 85018; 85025; 85027; 87641; 96361; 96365; 96366; 96368; 96374; 96375; 96376; 99291; A9270; G0378; J1815; J2405; J3480; J7030; J7050; J7120